=== PATIENT | female | born 1950 | race Caucasian/White ===

== ENCOUNTER 2017-07-06 07:05 | Emergency (ER) | payer MEDICARE ==
--- OUTSIDE RECORDS SUMMARY | 2017-07-06 07:14 | XMS REPORT ---
:1950 External Reference #:[id number] Author Organization [facility] Address [address] [place] [address] Phone [phone] Care Team Providers Name Role Phone Vicki Neff Care Team Information Hanger Unavailable Vicki Neff Primary Care Physician Unavailable Payers Type Date Identification Numbers Payment Provider Subscriber Commercial Effective: Policy Number: Medicare Blue Ppo Martha Fuentes 2015 [id number] Group Number: [id number] [address] [address] Group Name: [place] [address] PayID: [id number] Problems Date Description Provider Status Onset: 03/04/2011 Osteoporosis Wing Quijano M.D. Active Onset: 05/08/2016 Mixed hyperlipidemia Vicki Neff M.D. Active Onset: 01/12/2015 Hyperlipidemia Vicki Neff M.D. Active Onset: 01/12/2015 Vitamin D deficiency Vicki Neff M.D. Active Onset: 01/04/2014 Malignant lymphoma of extranodal Vicki Neff M.D. Active AND/OR solid organ site Onset: 07/07/2013 Impaired fasting glycaemia Wing Quijano M.D. Active Onset: 04/21/2012 Leukocytosis Wing Quijano M.D. Active Onset: 04/21/2012 Anxiety state Wing Quijano M.D. Active Onset: 04/21/2012 Chest pain Wing Quijano M.D. Active Onset: 03/12/2012 Acute upper respiratory infection Wing Quijano M.D. Active Onset: 05/20/2011 Acute pharyngitis Charanjit Denis M.D. Active Onset: 05/20/2011 Acute sinusitis Charanjit Denis M.D. Active Family History Date Family Member(s) Problem(s) Comments Father age 90 CHF. COPD. HTN. tool engineer. Mother 94. hip fracture. ARthritis, HTN. First Son suicided age 40. First Daughter pituitary tumor removed, diabetes insipidus mostly resolved. Nurse data architect manager in [facility] [facility] First Brother Hypertension First Sister healtlhy. 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 ETOH Use Social Alcohol 2-3 glasses wine a week. Smoking Patient is a former smoker Smoking 2008 Quit all together used to smoke 1 pack per week for 10 years, 1 ppweek 20 years before that. Exercise Type/Frequency Exercises regularly. Walks a Current couple of miles, a couple of times a week. Strength training and yoga. Allergies, Adverse Reactions, Alerts Date Description Reaction Status Severity Comments 03/13/2017 Ranitidine abdominal cramps, diarrhea active 12/12/2010 NKDA inactive Medications Medication Date Status Form Strength Qnty SIG Indications Ordering Provider Nebulizer 07/02 Active Misc 1unit w/ tubing Vicki L. s kits - dx: Aishwarya bronchitis/w M.D. heezing Xopenex 07/02 Active Nebulizer 0.63mg/3M 72ml 1 vial by Vicki LHollie /2017 L nebulizer Aishwarya, 1-6 times a M.D. day as needed, up to 6 times daily Albuterol 07/02 Active Nebulizer (2.5mg/3M 75ml use 1 vial Vicki LHollie Sulfate L) 0.083% via Aishwarya, nebulizer M.D. every 4-6 hours as needed for shortness of breath /wheezing Medrol 07/02 Active TBPK 4mg 1unit use as Vicki LHollie /2017 s directed Krysten Neff Azithromycin 06/28 Active Tablets 250mg 6tabs 2 by mouth J01.90 Vicki LHollie /2017 today. 1 by Aishwarya, mouth daily M.D. x 4 Ventolin HFA 06/28 Active Aerosol 108(90Bas 18uni 2 puffs J01.90 Vicki L. /2017 e) ts every 4 Aishwarya, mcg/Act hours as M.D. needed Cheratussin ac 06/28 Active Solution 100-10mg/ 100ml 5 -10 J01.90 Vicki L. /2017 5ML milliliters Aishwarya, by mouth at M.D. night for cough Ocuvite 01/04 Active Tablets 1 po qd /2013 [facility] Calcium 03/29 Active Tablets 1250mg 90tab one tab po M81.0 Dimas A. /2009 s daily Krysten Quijano Multi-Vitamin Active Tablets 1 PO qd Unknown /0000 Omeprazole Active Capsules 20mg 1 by mouth Unknown /0000 DR every day Ranitidine HCL 03/04 Hx Capsules 300mg 90cap 1 by mouth K21.9 Vicki L. /2016 s at night. Henry Neff M.D. 03/13 Ranitidine HCL 07/18 Hx Capsules 300mg 90cap 1 by mouth K21.9 Vicki LHollie /2016 s at night. Henry Neff M.D. 03/03 Doxycycline 01/29 Hx Tablets 100mg 2tabs 2 pills by [id number] Vicki Cunningham Hyclate mouth at the Aishwarya, - same time. M.D. 05/08 Physical 07/04 Hx evaluate and M25.562 Vicki Cunningham Therapy treat mike Neff, - knee pain. M.D. 11/26 Vitamin D 01/20 Hx Capsules [id number] 12cap take 1 Vicki LHollie (Ergocalcifero s capsule by ildefonso Neff) - mouth once M.D. 11/26 weekly 12 weeks. Meclizine HCL 11/10 Hx Tablets 25mg 30tab take 1 386.10 Maria Del Carmen s tablet three Brown, RADARMAN - times a day 11/26 if needed for dizziness Physical 11/10 Hx evaluate and 719.41 Maria Del Carmen Therapy treat right Jose, RADARMAN - shoulder 03/13 pain Guaiatussin ac 03/29 Hx Syrup 100-10mg/ 4oz 1 -2 tsp po 5ML q 4 hr prn Brie, - cough Afnp-C 04/08 Azithromycin 02/26 Hx Tablets 250mg 6tabs 2 tabs 465.8 Katalina today; then Lisy, - one tab qd x Afnp-C 03/03 4 more days Guaifenesin ac 02/26 Hx Syrup 100-10mg/ 4oz 1-2 tsp q 4 465.8 Katalina 5ML hrs prn for Lisy, - cough Afnp-C 03/04 Azithromycin 01/06 Hx Tablets 250mg 6tabs 2 po today 465.9 Dimas A. /2012 and 1 po x 4 Krysten Quijano - days 02/26 Codeine 01/06 Hx Liquid 300-10mg/ 40ml 5ml before 465.9 Dimas A. Phosphate/ai 5ML bed qhs Krysten Quijano fenesin - 02/26 Guaifenesin ac 01/06 Hx Syrup 100-10mg/ 40ml 5ml po qhs 465.9 Katalina 5ML as needed Lisy, - for cough Afnp-C 02/26 Robitussin A-C 03/12 Hx 100ml 1-2 tsp po 465.9 Dimas A. q4h prn Sinai Quijano. - cough 04/21 Azithromycin 03/12 Hx Tablets 250mg 6tabs 2 by mouth 465.9 today and 1 Brie, - by mouth x 4 Afnp-C Azithromycin 05/20 Hx Tablets 250mg 6tabs 2 po today 461.8 Charanjit T. /2011 and 1 po x 4 Midura, - days M.D. 12/25 Robitussin A-C 05/20 Hx 120ml 1-2 tsp po 461.8 Charanjit T. q4h prn Midura, - cough M.D. 12/25 Azithromycin 03/16 Hx Tablets 250mg 6tabs 2 tabs 466.0 today; then Lisy, - one tab qd x Afnp-C 03/21 4 more days Meclizine HCL 03/16 Hx Tablets 12.5mg 20tab take 1-2 bid 466.0 Katalina /2010 s prn for Lisy, - dizziness Afnp-C 05/20 Amoxicillin/Cl 02/14 Hx Tablets 875-125mg 20tab 1 po bid 466.0 Vicki RuggieroHollie avulanate /2010 s with AishwaryaKiara page - probiotics M.DHollie 03/16 and yogurt. /2010 Acetaminophen/ 02/14 Hx Tablets 300-30mg 20tab 1-2 po at 466.0 Vicki RuggieroHollie Codeine #3 /2010 s hs. Henry Neff.DHollie 03/16 Flexeril 12/12 Hx Tablets 10mg 30tab 1 po q hs 724.5 Emilie /2010 s prn muscle Billie, - spasm [employer] 02/14 Physical 12/12 Hx evaluate and 724.5 Emilie Therapy /2010 treat left Billie, - low back [employer] 02/14 pain strain Azithromycin 08/14 Hx Tablets 250mg 6tabs 2 po today 466.0 Dimas A. /2010 and 1 po x 4 Krysten Quijano - days 12/12 Robitussin A/C 08/14 Hx 120ml 1-2 tsp po 466.0 Dimas A. qhs prn Krysten Quijano - cough 12/12 Vitamin D 03/29 Hx Capsules 1000Unit 90cap 1 po qd M81.0 Dimas A. s Krysten Quijano - 03/13 Calcium 03/14 Hx Tablets [facility] 03/29 Of Amoxicillin/Cl 03/13 Hx Tablets 875-125mg 20tab 1 po bid for Mark F. avulanate /2009 s 10 days Shallish Potassium Henry Bashir 03/22 Metronidazole 11/08 Hx Tablets 500mg 21tab 1 po tid Charanjit T. s Henry Denis M.D. 09/28 Cipro 11/04 Hx Tablets 500mg 10tab 1 po bid for Vangie M. s 5 days Henry Quintero M.D. 11/08 Antivert 05/31 Hx Tablets 12.5mg 20tab 1-2 po tid Mark F. s Henry Mcelroy M.D. 09/28 Zocor 02/08 Hx Tablets 10mg 90tab 1 po q hs 272.2 s Henry Wasserman 10/31 Actonel 01/27 Hx Tablets 35mg 4tabs 1 PO qweek Dimas A. /2007 Krysten Quijano - 09/28 Actonel Hx Tablets 75mg 12tab 1 qweek Dimas A. /0000 s Krysten Quijano - 01/27 Ceftin Hx Tablets 250mg 20tab 1 PO bid X Unknown /0000 s 10 Days - 02/08 Fosamax Hx Tablets 70mg 4tabs 1 po q week Dimas A. /0000 for Krysten Quijano - osteoporosis 12/25 Ibuprofen PM Hx Tablets 200-38mg qhs Unknown /0000 - 11/26 Immune Booster Hx Liquid 90 gtts qd Unknown /0000 - 03/03 Immunizations CPT Code Status Date Vaccine Lot # [id number] Given 02/25/2017 High-Dose, Influenza Virus Vacccine-fluzone 65 [id number] and older 86742 Given 01/30/2016 Influenza Vac, Quadrivalent, Slit Virus, Im [id number] Given 01/12/2015 Pneumococcal Conjugate Vacc-13 [id number] 00638 Given 01/12/2015 High-Dose, Influenza Virus Vacccine-fluzone 65 [id number] and older 90135 Given 01/04/2014 High-Dose, Influenza Virus Vacccine-fluzone 65 [id number] and older 72291 Given 02/03/2013 Pneumococcal Immunization [id number] 84783 Given 02/03/2013 High-Dose, Influenza Virus Vacccine-fluzone 65 [id number] and older 98401 Given 12/26/2011 DO Not Use Split Influenza Virus Vaccine [id number] 69404 Given 10/24/2011 Zostivax [id number] 60752 Given 03/29/2010 Tdap Tetanus, W Pertussis [id number] 76001 Given 03/13/2010 DO Not Use Split Influenza Virus Vaccine [id number] 04814 Given 03/18/2009 DO Not Use Split Influenza Virus Vaccine [id number] 35635 Given 01/26/2008 DO Not Use Split Influenza Virus Vaccine [id number] Vital Signs Date Vital Result Comment 07/02/2017 BP Systolic 134 mmHg BP Diastolic 84 mmHg Heart Rate 68 /min Body Temperature 97.5 F Respiratory Rate 16 /min Height 64.5 inches 5'4.50" Weight 1614.00 lb BMI (Body Mass Index) 272.7 kg/m2 06/28/2017 BP Systolic 144 mmHg BP Diastolic 90 mmHg Heart Rate 92 /min Body Temperature 98.6 F Respiratory Rate 18 /min Height 64.5 inches 5'4.50" Weight 165.25 lb BMI (Body Mass Index) 27.9 kg/m2 05/09/2017 BP Systolic 142 mmHg BP Diastolic 80 mmHg Heart Rate 84 /min Body Temperature 96.8 F Respiratory Rate 16 /min Height 64.5 inches 5'4.50" Weight 164.50 lb BMI (Body Mass Index) 27.8 kg/m2 03/04/2017 BP Systolic 122 mmHg BP Diastolic 82 mmHg Heart Rate 90 /min Body Temperature 98.1 F Height 64.5 inches 5'4.50" Weight 162.38 lb BMI (Body Mass Index) 27.4 kg/m2 10/08/2016 BP Systolic 118 mmHg BP Diastolic 80 mmHg Heart Rate 60 /min Body Temperature 98.0 F Respiratory Rate 16 /min Weight 162.00 lb 07/18/2016 BP Systolic 120 mmHg BP Diastolic 80 mmHg Heart Rate 68 /min Body Temperature 98.0 F Respiratory Rate 18 /min Weight 165.00 lb 05/08/2016 BP Systolic 136 mmHg BP Diastolic 72 mmHg Heart Rate 68 /min Body Temperature 97.7 F Respiratory Rate 16 /min Height 64.5 inches 5'4.50" measured 01/12/15 Weight 161.00 lb BMI (Body Mass Index) 27.2 kg/m2 01/30/2016 BP Systolic 138 mmHg BP Diastolic 70 mmHg Heart Rate 84 /min Body Temperature 97.7 F Height 64.5 inches 5'4.50" measured 01/12/15 Weight 161.25 lb BMI (Body Mass Index) 27.2 kg/m2 11/27/2015 BP Systolic 110 mmHg BP Diastolic 70 mmHg Heart Rate 68 /min Body Temperature 98.0 F Respiratory Rate 18 /min Height 64.5 inches 5'4.50" measured 01/12/15 Weight 159.00 lb BMI (Body Mass Index) 26.9 kg/m2 07/05/2015 BP Systolic 110 mmHg BP Diastolic 80 mmHg Heart Rate 76 /min Body Temperature 98.0 F Respiratory Rate 18 /min Height 64.5 inches 5'4.50" measured 01/12/15 Weight 161.00 lb BMI (Body Mass Index) 27.2 kg/m2 03/13/2015 BP Systolic 126 mmHg BP Diastolic 76 mmHg Heart Rate 78 /min Body Temperature 97.5 F Respiratory Rate 16 /min Height 64.5 inches 5'4.50" measured 01/12/15 Weight 159.12 lb BMI (Body Mass Index) 26.9 kg/m2 01/12/2015 BP Systolic 138 mmHg BP Diastolic 74 mmHg Heart Rate 60 /min Body Temperature 97.5 F Respiratory Rate 16 /min Height 64.5 inches 5'4.50" measured 01/12/15 Weight 158.38 lb BMI (Body Mass Index) 26.8 kg/m2 11/10/2014 BP Systolic 150 mmHg BP Diastolic 100 mmHg Heart Rate 72 /min Body Temperature 96.0 F Respiratory Rate 16 /min Height 64 inches 5'4" Weight 161.00 lb BMI (Body Mass Index) 27.6 kg/m2 03/29/2014 BP Systolic 128 mmHg BP Diastolic 72 mmHg Heart Rate 80 /min Body Temperature 97.0 F Respiratory Rate 16 /min O2 % BldC Oximetry 98 % Height 64 inches 5'4" Weight 155.00 lb BMI (Body Mass Index) 26.6 kg/m2 01/04/2014 BP Systolic 120 mmHg BP Diastolic 72 mmHg Heart Rate 78 /min Body Temperature 97.0 F Height 64 inches 5'4" Weight 154.50 lb BMI (Body Mass Index) 26.5 kg/m2 07/07/2013 BP Systolic 132 mmHg BP Diastolic 86 mmHg Heart Rate 76 /min Body Temperature 96.1 F Respiratory Rate 16 /min Height 64 inches 5'4" Weight 151.00 lb BMI (Body Mass Index) 25.9 kg/m2 06/21/2013 BP Systolic 130 mmHg BP Diastolic 78 mmHg Heart Rate 82 /min Body Temperature 96.9 F Respiratory Rate 16 /min Height 65 inches 5'5" Weight 152.00 lb BMI (Body Mass Index) 25.3 kg/m2 05/12/2013 BP Systolic 132 mmHg BP Diastolic 76 mmHg Heart Rate 84 /min Body Temperature 96.3 F Height 65 inches 5'5" Weight 155.25 lb BMI (Body Mass Index) 25.8 kg/m2 02/26/2013 BP Systolic 124 mmHg BP Diastolic 78 mmHg Heart Rate 68 /min Body Temperature 96.9 F Respiratory Rate 16 /min Height 65 inches 5'5" Weight 151.00 lb BMI (Body Mass Index) 25.1 kg/m2 01/06/2013 BP Systolic 120 mmHg BP Diastolic 70 mmHg Heart Rate 64 /min Body Temperature 97.1 F Respiratory Rate 16 /min Height 65 inches 5'5" Weight 149.00 lb BMI (Body Mass Index) 24.8 kg/m2 07/17/2012 BP Systolic 130 mmHg BP Diastolic 82 mmHg Heart Rate 64 /min Body Temperature 97.1 F Height 65 inches 5'5" Weight 154.00 lb BMI (Body Mass Index) 25.6 kg/m2 04/21/2012 BP Systolic 128 mmHg BP Diastolic 84 mmHg Heart Rate 84 /min Body Temperature 97.0 F Height 65 inches 5'5" Weight 159.00 lb BMI (Body Mass Index) 26.5 kg/m2 03/12/2012 BP Systolic 142 mmHg BP Diastolic 92 mmHg Heart Rate 88 /min Body Temperature 97.6 F O2 % BldC Oximetry 98 % Height 65 inches 5'5" Weight 157.00 lb BMI (Body Mass Index) 26.1 kg/m2 12/26/2011 BP Systolic 132 mmHg BP Diastolic 80 mmHg Heart Rate 66 /min Body Temperature 97.1 F Height 65 inches 5'5" Weight 153.00 lb BMI (Body Mass Index) 25.5 kg/m2 05/20/2011 BP Systolic 118 mmHg BP Diastolic 70 mmHg Heart Rate 75 /min Body Temperature 97.1 F O2 % BldC Oximetry 99 % Height 65 inches 5'5" Weight 155.00 lb BMI (Body Mass Index) 25.8 kg/m2 03/16/2011 BP Systolic 122 mmHg BP Diastolic 76 mmHg Heart Rate 70 /min Body Temperature 97.2 F O2 % BldC Oximetry 97 % Height 65 inches 5'5" Weight 148.00 lb BMI (Body Mass Index) 24.6 kg/m2 02/14/2011 BP Systolic 120 mmHg BP Diastolic 80 mmHg Heart Rate 80 /min Body Temperature 98.2 F Respiratory Rate 16 /min Height 65 inches 5'5" Weight 150.00 lb BMI (Body Mass Index) 25.0 kg/m2 12/12/2010 BP Systolic 92 mmHg BP Diastolic 70 mmHg Heart Rate 84 /min Height 65 inches 5'5" Weight 149.00 lb BMI (Body Mass Index) 24.8 kg/m2 08/14/2010 BP Systolic 110 mmHg BP Diastolic 70 mmHg Heart Rate 84 /min Body Temperature 98.1 F Respiratory Rate 16 /min O2 % BldC Oximetry 96 % Height 65 inches 5'5" Weight 144.00 lb BMI (Body Mass Index) 24.0 kg/m2 08/11/2010 BP Systolic 110 mmHg BP Diastolic 70 mmHg Heart Rate 76 /min Body Temperature 97.4 F Respiratory Rate 16 /min Height 65 inches 5'5" Weight 144.00 lb BMI (Body Mass Index) 24.0 kg/m2 03/29/2010 BP Systolic 122 mmHg BP Diastolic 88 mmHg Heart Rate 102 /min Body Temperature 96.6 F Height 65 inches 5'5" Weight 144.00 lb BMI (Body Mass Index) 24.0 kg/m2 03/13/2010 BP Systolic 110 mmHg BP Diastolic 70 mmHg Heart Rate 72 /min Body Temperature 98.6 F Respiratory Rate 14 /min Height 65 inches 5'5" Weight 144.00 lb BMI (Body Mass Index) 24.0 kg/m2 11/08/2009 BP Systolic 130 mmHg BP Diastolic 84 mmHg Heart Rate 60 /min Body Temperature 97.3 F Height 65 inches 5'5" Weight 144.00 lb BMI (Body Mass Index) 24.0 kg/m2 09/28/2009 BP Systolic 138 mmHg BP Diastolic 80 mmHg Heart Rate 68 /min Body Temperature 97.0 F O2 % BldC Oximetry 98 % Height 65 inches 5'5" Weight 144.00 lb BMI (Body Mass Index) 24.0 kg/m2 11/08/2008 BP Systolic 110 mmHg BP Diastolic 68 mmHg Heart Rate 64 /min Body Temperature 97.8 F Height 65 inches 5'5" Weight 134.00 lb BMI (Body Mass Index) 22.3 kg/m2 10/31/2008 BP Systolic 142 mmHg BP Diastolic 82 mmHg Heart Rate 80 /min Body Temperature 97.9 F Weight 137.00 lb 05/31/2008 BP Systolic 142 mmHg BP Diastolic 90 mmHg Heart Rate 75 /min Respiratory Rate 20 /min 02/09/2008 BP Systolic 122 mmHg BP Diastolic 72 mmHg Heart Rate 68 /min Height 65 inches 5'5" Weight 148.00 lb BMI (Body Mass Index) 24.6 kg/m2 01/26/2008 BP Systolic 126 mmHg BP Diastolic 80 mmHg Heart Rate 72 /min Body Temperature 97.9 F Height 65 inches 5'5" Weight 146.00 lb BMI (Body Mass Index) 24.3 kg/m2 Results Test Date Test Result H/L Range Note Influenza A&B-fma 06/28/2017 Influenza A negative Influenza B negative Laboratory test 05/06/2017 Surgical Interface SEE RESULT BELOW 1, 2 finding Order Laboratory test 05/06/2017 Clotest SEE RESULT BELOW 3 finding CBC Auto Diff 09/03/2016 White Blood Count 11.8 10^3/uL High 3.5-10.8 Red Blood Count 4.92 10^6/uL 4.0-5.4 Hemoglobin 13.5 g/dL 12.0-16.0 Hematocrit 42 % 35-47 Mean Corpuscular Volume 85 fL 80-97 Mean Corpuscular Hemoglobin 27 pg 27-31 Mean Corpuscular HGB Conc 33 g/dL 31-36 Red Cell Distribution Width 15 % 10.5-15 Platelet Count 193 10^3/uL 150-450 Mean Platelet Volume 10 um3 7.4-10.4 Abs Neutrophils 4.7 10^3/uL 1.5-7.7 Abs Lymphocytes 6.0 10^3/uL High 1.0-4.8 Abs Monocytes 0.8 10^3/uL 0-0.8 Abs Eosinophils 0.2 10^3/uL 0-0.6 Abs Basophils 0.1 10^3/uL 0-0.2 Abs Nucleated RBC 0.01 10^3/uL Manual Differential 09/03/2016 Neutrophil % 37 % Low 38-83 Lymphocytes % 45 % 25-47 Monocytes % 8 % 0-13 Eosinophils % 2 % 0-6 Basophil % 1 % 0-2 Reactive Lymph % 7 % High 0-6 RBC Morphology Normal Normal Laboratory test finding 09/03/2016 Pathologist Review (SEE NOTE) 4 Lipid Profile 07/09/2016 Cholesterol 270 mg/dL High 120-200 Triglycerides 151 mg/dL 30-200 HDL Cholesterol 64 mg/dL 30-85 LDL (Calculated) 176 CALC High 0-129 VLDL Cholesterol 30 mg/dL 0-50 HDL Risk Factor 4.2 CALC 0.0-4.4 Lipid Profile 05/09/2016 Cholesterol 254 mg/dL High 120-200 Triglycerides 117 mg/dL 30-200 HDL Cholesterol 61 mg/dL 30-85 LDL (Calculated) 170 CALC High 0-129 VLDL Cholesterol 23 mg/dL 0-50 HDL Risk Factor 4.2 CALC 0.0-4.4 Laboratory test finding 05/09/2016 TSH 1.44 mIU/L 0.50-6.00 Vitamin D25 22 Low 30-100 Complete Blood Count 05/09/2016 WBC 9.0 x10^3/UL 3.6-9.6 RBC 4.72 x10^6/UL 3.90-5.70 HGB 13.6 g/dL 12.1-17.2 HCT 40 % 36-50 MCV 85.0 fL 82.2-97.4 MCH 28.8 pg 27.6-33.3 MCHC 34.1 g/dL 33.0-35.5 RDW 14.7 % High 11.6-13.7 PLT 204 x10^3/UL 150-400 MPV 8.3 fL 7.4-10.4 Gran # 4.3 x10^3/UL 1.5-7.2 Lymph# 4.4 x10^3/UL 0.7-4.9 Barron# 0.3 x10^3/UL 0.1-0.9 Gran % 47.0 % 42.2-75.2 Lymph % 49.1 % 20.5-51.1 Barron% 3.9 % 1.7-9.3 Comprehensive Metabolic Prof 05/09/2016 Sodium 142 mEq/L 134-149 Potassium 4.6 mEq/L 3.6-5.5 Chloride 106 mEq/L 94-112 Carbon Dioxide 25 mEq/L 21-32 Glucose 116 mg/dL High 70-105 5 BUN 15 mg/dL 6-26 Creatinine 0.6 mg/dL 0.6-1.4 BUN/Creat Ratio 25.0 CALC 8.0-36.0 Calcium 9.9 mg/dL 8.6-10.2 Total Protein 7.5 g/dL 6.4-8.3 Albumin 4.9 g/dL 3.8-5.5 Globulin 2.6 g/dL 2.0-4.8 A/G Ratio 1.9 CALC 0.6-2.3 Alk. Phosphatase 66 U/L 30-110 Alt (SGPT) 20 U/L 7-35 Ast (Sgot) 22 U/L 5-34 Total Bilirubin 0.3 mg/dL 0.2-1.3 GFR Non- >60 ml/min/1.73m^ >=60 GFR >60 ml/min/1.73m^ >=60 Complete Blood Count 02/27/2016 WBC 9.2 x10^3/UL 3.6-9.6 RBC 4.66 x10^6/UL 3.90-5.70 HGB 13.4 g/dL 12.1-17.2 HCT 40 % 36-50 MCV 85.0 fL 82.2-97.4 MCH 28.7 pg 27.6-33.3 MCHC 33.8 g/dL 33.0-35.5 RDW 15.2 % High 11.6-13.7 PLT 215 x10^3/UL 150-400 MPV 8.8 fL 7.4-10.4 Gran # 4.0 x10^3/UL 1.5-7.2 Lymph# 4.8 x10^3/UL 0.7-4.9 Barron# 0.4 x10^3/UL 0.1-0.9 Gran % 43.2 % 42.2-75.2 Lymph % 51.1 % 20.5-51.1 Barron% 4.7 % 1.7-9.3 Comprehensive Metabolic Prof 02/27/2016 Sodium 145 mEq/L 134-149 Potassium 3.9 mEq/L 3.6-5.5 Chloride 102 mEq/L 94-112 Carbon Dioxide 28 mEq/L 21-32 Glucose 112 mg/dL High 70-105 BUN 17 mg/dL 6-26 Creatinine 0.6 mg/dL 0.6-1.4 BUN/Creat Ratio 28.3 CALC 8.0-36.0 Calcium 9.0 mg/dL 8.6-10.2 Total Protein 6.8 g/dL 6.4-8.3 Albumin 4.5 g/dL 3.8-5.5 Globulin 2.3 g/dL 2.0-4.8 A/G Ratio 2.0 CALC 0.6-2.3 Alk. Phosphatase 54 U/L 30-110 Alt (SGPT) 20 U/L 7-35 Ast (Sgot) 20 U/L 5-34 Total Bilirubin 0.4 mg/dL 0.2-1.3 GFR Non- >60 ml/min/1.73m^ >=60 GFR >60 ml/min/1.73m^ >=60 Lyme, Western Blot, Serum 02/27/2016 IgG P93 Ab. Absent 6 IgG P66 Ab. Absent 6 IgG P58 Ab. Absent 6 IgG P45 Ab. Absent 6 IgG P41 Ab. Absent 6 IgG P39 Ab. Absent 6 IgG P30 Ab. Absent 6 IgG P28 Ab. Absent 6 IgG P23 Ab. Absent 6 IgG P18 Ab. Absent 6 Lyme IgG WB Interp. Negative 6, 7 IgM P41 Ab. Absent 6 IgM P39 Ab. Absent 6 IgM P23 Ab. Absent 6 Lyme IgM WB Interp. Negative 6, 8 Laboratory test finding 02/27/2016 Sedimentation Rate 12 mm CBC Auto Diff 10/09/2015 White Blood Count 9.5 10^3/uL 3.5-10.8 Red Blood Count 4.77 10^6/uL 4.0-5.4 Hemoglobin 13.1 g/dL 12.0-16.0 Hematocrit 40 % 35-47 Mean Corpuscular Volume 83 fL 80-97 Mean Corpuscular Hemoglobin 27 pg 27-31 Mean Corpuscular HGB Conc 33 g/dL 31-36 Red Cell Distribution Width 15 % 10.5-15 Platelet Count 189 10^3/uL 150-450 Mean Platelet Volume 10 um3 7.4-10.4 Abs Neutrophils 3.4 10^3/uL 1.5-7.7 Abs Lymphocytes 5.5 10^3/uL High 1.0-4.8 Abs Monocytes 0.4 10^3/uL 0-0.8 Abs Eosinophils 0.2 10^3/uL 0-0.6 Abs Basophils 0.1 10^3/uL 0-0.2 Abs Nucleated RBC 0.01 10^3/uL Granulocyte % 35.3 % Low 38-83 Lymphocyte % 58.0 % High 25-47 Monocyte % 4.4 % 1-9 Eosinophil % 1.6 % 0-6 Basophil % 0.7 % 0-2 Nucleated Red Blood Cells % 0.1 Manual Differential 10/09/2015 Neutrophil % 41 % 38-83 Lymphocytes % 33 % 25-47 Monocytes % 8 % 0-13 Eosinophils % 1 % 0-6 Reactive Lymph % 17 % High 0-6 9 RBC Morphology Normal Normal Laboratory test finding 10/09/2015 Pathologist Review (SEE NOTE) 10 CBC Auto Diff 04/17/2015 White Blood Count 11.9 10^3/uL High 3.5-10.8 Red Blood Count 4.77 10^6/uL 4.0-5.4 Hemoglobin 13.2 g/dL 12.0-16.0 Hematocrit 41 % 35-47 Mean Corpuscular Volume 86 fL 80-97 Mean Corpuscular Hemoglobin 28 pg 27-31 Mean Corpuscular HGB Conc 32 g/dL 31-36 Red Cell Distribution Width 15 % 10.5-15 Platelet Count 207 10^3/uL 150-450 Mean Platelet Volume 10 um3 7.4-10.4 Abs Neutrophils 4.7 10^3/uL 1.5-7.7 Abs Lymphocytes 6.1 10^3/uL High 1.0-4.8 Abs Monocytes 0.8 10^3/uL 0-0.8 Abs Eosinophils 0.2 10^3/uL 0-0.6 Abs Basophils 0.1 10^3/uL 0-0.2 Abs Nucleated RBC 0.01 10^3/uL Granulocyte % 39.4 % 38-83 Lymphocyte % 51.3 % High 25-47 Monocyte % 6.9 % 1-9 Eosinophil % 1.6 % 0-6 Basophil % 0.8 % 0-2 Nucleated Red Blood Cells % 0.1 Manual Differential 04/17/2015 Neutrophil % 39 % 38-83 Lymphocytes % 33 % 25-47 Monocytes % 5 % 0-13 Eosinophils % 1 % 0-6 Reactive Lymph % 22 % High 0-6 11 RBC Morphology Normal Normal Laboratory test finding 04/17/2015 Pathologist Review (SEE NOTE) 12 Leukemia/Lymphoma Phenot 04/17/2015 Path Interpretation 2-8 Marker TNP Path Interpret > 16 Marker TNP Path Interpret 9-15 Marker (SEE NOTE) 13 Laboratory test finding 01/16/2015 Vitamin D25 34 30-100 Lipid Profile 01/16/2015 Cholesterol 250 mg/dL High 120-200 Triglycerides 153 mg/dL 30-200 HDL Cholesterol 60 mg/dL 30-85 LDL (Calculated) 159 CALC High 0-129 VLDL Cholesterol 31 mg/dL 0-50 HDL Risk Factor 4.2 CALC 0.0-4.4 Laboratory test finding 01/16/2015 TSH 1.82 mIU/L 0.50-6.00 Free T4 1.16 ng/dL 0.75-1.54 Complete Blood Count 01/16/2015 WBC 9.6 x10^3/UL 3.6-9.6 RBC 4.43 x10^6/UL 3.90-5.70 HGB 12.8 g/dL 12.1-17.2 HCT 38 % 36-50 MCV 86.0 fL 82.2-97.4 MCH 28.8 pg 27.6-33.3 MCHC 33.6 g/dL 33.0-35.5 RDW 14.5 % High 11.6-13.7 PLT 200 x10^3/UL 150-400 MPV 8.7 fL 7.4-10.4 Gran # 3.6 x10^3/UL 1.5-7.2 Lymph# 5.5 x10^3/UL High 0.7-4.9 Barron# 0.5 x10^3/UL 0.1-0.9 Gran % 37.1 % Low 42.2-75.2 Lymph % 57.5 % High 20.5-51.1 Barron% 5.4 % 1.7-9.3 Comprehensive Metabolic Prof 01/16/2015 Sodium 140 mEq/L 134-149 Potassium 4.1 mEq/L 3.6-5.5 Chloride 103 mEq/L 94-112 Carbon Dioxide 25 mEq/L 21-32 Glucose 123 mg/dL High 70-105 14 BUN 15 mg/dL 6-26 Creatinine 0.6 mg/dL 0.6-1.4 BUN/Creat Ratio 25.0 CALC 8.0-36.0 Calcium 9.6 mg/dL 8.6-10.2 Total Protein 7.3 g/dL 6.4-8.3 Albumin 4.7 g/dL 3.8-5.5 Globulin 2.6 g/dL 2.0-4.8 A/G Ratio 1.8 CALC 0.6-2.3 Alk. Phosphatase 55 U/L 30-110 Alt (SGPT) 23 U/L 7-35 Ast (Sgot) 21 U/L 5-34 Total Bilirubin 0.4 mg/dL 0.2-1.3 GFR Non- >60 ml/min/1.73m^ >=60 GFR >60 ml/min/1.73m^ >=60 Laboratory test 01/16/2015 Hemoglobin A1c 5.9 % % High 4.1-5.7 finding (Fma/CMC,CX) CBC Auto Diff 10/24/2014 White Blood Count 12.3 10^3/uL High 4.8-10.8 Red Blood Count 4.82 10^6/uL 4.0-5.4 Hemoglobin 13.6 g/dL 12.0-16.0 Hematocrit 41 % 35-47 Mean Corpuscular Volume 85 fL 80-97 Mean Corpuscular Hemoglobin 28 pg 27-31 Mean Corpuscular HGB Conc 33 g/dL 31-36 Red Cell Distribution Width 14 % 10.5-15 Platelet Count 223 10^3/uL 150-450 Mean Platelet Volume 9 um3 7.4-10.4 Abs Neutrophils 4.2 10^3/uL 1.5-7.7 Abs Lymphocytes 6.9 10^3/uL High 1.0-4.8 Abs Monocytes 0.8 10^3/uL 0-0.8 Abs Eosinophils 0.2 10^3/uL 0-0.6 Abs Basophils 0.1 10^3/uL 0-0.2 Abs Nucleated RBC 0 10^3/uL Granulocyte % 34.4 % Low 38-83 Lymphocyte % 56.3 % High 25-47 Monocyte % 6.6 % 1-9 Eosinophil % 1.8 % 0-6 Basophil % 0.9 % 0-2 Nucleated Red Blood Cells % 0 Rapid Strep A 08/02/2014 Rapid Strep A (SEE NOTE) 15 Laboratory test finding 08/02/2014 Throat Beta Strep (SEE NOTE) 16 Culture CBC Auto Diff 04/19/2014 White Blood Count 12.9 10^3/uL High 4.8-10.8 Red Blood Count 4.73 10^6/uL 4.0-5.4 Hemoglobin 13.2 g/dL 12.0-16.0 Hematocrit 40 % 35-47 Mean Corpuscular Volume 85 fL 80-97 Mean Corpuscular Hemoglobin 28 pg 27-31 Mean Corpuscular HGB Conc 33 g/dL 31-36 Red Cell Distribution Width 15 % 10.5-15 Platelet Count 230 10^3/uL 150-450 Mean Platelet Volume 10 um3 7.4-10.4 Abs Neutrophils 3.9 10^3/uL 1.5-7.7 Abs Lymphocytes 7.7 10^3/uL High 1.0-4.8 Abs Monocytes 1.0 10^3/uL High 0-0.8 Abs Eosinophils 0.3 10^3/uL 0-0.6 Abs Basophils 0.1 10^3/uL 0-0.2 Abs Nucleated RBC 0 10^3/uL Granulocyte % 30.0 % Low 38-83 Lymphocyte % 59.6 % High 25-47 Monocyte % 7.4 % 1-9 Eosinophil % 2.0 % 0-6 Basophil % 1.0 % 0-2 Nucleated Red Blood Cells % 0 Laboratory test finding 01/04/2014 Vitamin D25 35 30-100 Complete Blood Count 01/04/2014 WBC 11.4 x10^3/UL High 3.6-9.6 17 RBC 4.89 x10^6/UL 3.90-5.70 HGB 13.9 g/dL 12.1-17.2 HCT 43 % 36-50 MCV 88.0 fL 82.2-97.4 MCH 28.5 pg 27.6-33.3 MCHC 32.5 g/dL Low 33.0-35.5 RDW 12.9 % 11.6-13.7 PLT 217 x10^3/UL 150-400 MPV 8.8 fL 7.4-10.4 Gran # 4.9 x10^3/UL 1.5-7.2 Lymph# 5.7 x10^3/UL High 0.7-4.9 Barron# 0.8 x10^3/UL 0.1-0.9 Gran % 42.6 % 42.2-75.2 Lymph % 50.2 % 20.5-51.1 Barron% 7.2 % 1.7-9.3 CBC Auto Diff 09/30/2013 White Blood Count 11.6 10^3/uL High 4.8-10.8 Red Blood Count 4.25 10^6/uL 4.0-5.4 Hemoglobin 12.2 g/dL 12.0-16.0 Hematocrit 37 % 35-47 Mean Corpuscular Volume 86 fL 80-97 Mean Corpuscular Hemoglobin 29 pg 27-31 Mean Corpuscular HGB Conc 34 g/dL 31-36 Red Cell Distribution Width 14 % 10.5-15 Platelet Count 197 10^3/uL 150-450 Mean Platelet Volume 10 um3 7.4-10.4 Abs Neutrophils 3.7 10^3/uL 1.5-7.7 Abs Lymphocytes 7.0 10^3/uL High 1.0-4.8 Abs Monocytes 0.7 10^3/uL 0-0.8 Abs Eosinophils 0.2 10^3/uL 0-0.6 Abs Basophils 0.1 10^3/uL 0-0.2 Abs Nucleated RBC 0.01 10^3/uL Manual Differential 09/30/2013 Neutrophil % 33 % Low 38-83 Lymphocytes % 40 % 25-47 Monocytes % 8 % 0-13 Eosinophils % 1 % 0-6 Reactive Lymph % 18 % High 0-6 18 RBC Morphology Normal Normal Laboratory test finding 09/30/2013 Monospot Negative Negative 19 Ua - Non Micro (Fma) 06/30/2013 Appearance CLEAR Color YELLOW Glucose NEGATIVE Bilirubin NEGATIVE Ketones NEGATIVE SP Grav 1.015 Blood NEGATIVE PH 6.5 Protein NEGATIVE Urobil 0.2 Nitrite NEGATIVE Leukocytes (Fma/CMC/Centrex) NEGATIVE Comprehensive Metabolic Prof 06/30/2013 Sodium 140 mEq/L 134-149 Potassium 4.9 mEq/L 3.6-5.5 Chloride 100 mEq/L 94-112 Carbon Dioxide 24 mEq/L 21-32 Glucose 108 mg/dL High 70-105 20 BUN 20 mg/dL 6-26 Creatinine 0.8 mg/dL 0.6-1.4 BUN/Creat Ratio 25.0 CALC 8.0-36.0 Calcium 9.5 mg/dL 8.6-10.2 Total Protein 7.3 g/dL 6.3-8.1 Albumin 5.0 g/dL 3.8-5.5 Globulin 2.3 g/dL 2.0-4.8 A/G Ratio 2.2 CALC 0.6-2.3 Alk. Phosphatase 62 U/L 30-110 Alt (SGPT) 17 U/L 7-35 Ast (Sgot) 20 U/L 5-34 Total Bilirubin 0.4 mg/dL 0.2-1.3 Lipid Profile 06/30/2013 Cholesterol 250 mg/dL High 120-200 Triglycerides 121 mg/dL 30-200 HDL Cholesterol 55 mg/dL 30-85 LDL (Calculated) 171 CALC High 0-129 VLDL Cholesterol 24 mg/dL 0-50 HDL Risk Factor 4.5 CALC High 0.0-4.4 Complete Blood Count 06/30/2013 WBC 10.6 x10^3/UL High 3.6-9.6 RBC 4.45 x10^6/UL 3.90-5.70 HGB 12.8 g/dL 12.1-17.2 HCT 38 % 36-50 MCV 86.0 fL 82.2-97.4 MCH 28.7 pg 27.6-33.3 MCHC 33.4 g/dL 33.0-35.5 RDW 12.3 % 11.6-13.7 PLT 227 x10^3/UL 150-400 MPV 8.8 fL 7.4-10.4 Gran # 3.8 x10^3/UL 1.5-7.2 Lymph# 6.3 x10^3/UL High 0.7-4.9 Barron# 0.5 x10^3/UL 0.1-0.9 Gran % 34.6 % Low 42.2-75.2 Lymph % 59.9 % High 20.5-51.1 Barron% 5.5 % 1.7-9.3 Oncology CBC Auto Diff 03/23/2013 White Blood Count 11.4 10^3/uL High 4.8- 10.8 Red Blood Count 4.64 10^6/uL 4.0-5.4 Hemoglobin 12.8 g/dL 12.0-16.0 Hematocrit 40 % 35-47 Mean Corpuscular Volume 86 fL 80-97 Mean Corpuscular Hemoglobin 28 pg 27-31 Mean Corpuscular HGB Conc 32 g/dL 31-36 Red Cell Distribution Width 13 % 10.5-15 Platelet Count 218 10^3/uL 150-450 Mean Platelet Volume 9 um3 7.4-10.4 Abs Neutrophils 3.7 10^3/uL 1.5-7.7 Abs Lymphocytes 6.6 10^3/uL High 1.0-4.8 Abs Monocytes 0.8 10^3/uL 0-0.8 Abs Eosinophils 0.2 10^3/uL 0-0.6 Abs Basophils 0.1 10^3/uL 0-0.2 Granulocyte % 32.1 % Low 38-83 Lymphocyte % 58.9 % High 25-47 Monocyte % 6.6 % 1-9 Eosinophil % 1.9 % 0-6 Basophil % 0.5 % 0-2 Manual Differential 03/23/2013 Neutrophil % 33 % Low 38-83 Lymphocytes % 47 % 25-47 Monocytes % 5 % 0-13 Eosinophils % 1 % 0-6 Reactive Lymph % 14 % High 0-6 RBC Morphology Normal Normal Oncology CBC Auto Diff 12/31/2012 White Blood Count 10.9 10^3/uL High 4.8- 10.8 Red Blood Count 4.72 10^6/uL 4.0-5.4 Hemoglobin 13.0 g/dL 12.0-16.0 Hematocrit 40 % 35-47 Mean Corpuscular Volume 85 fL 80-97 Mean Corpuscular Hemoglobin 28 pg 27-31 Mean Corpuscular HGB Conc 32 g/dL 31-36 Red Cell Distribution Width 14 % 10.5-15 Platelet Count 190 10^3/uL 150-450 Mean Platelet Volume 10 um3 7.4-10.4 Abs Neutrophils 3.5 10^3/uL 1.5-7.7 Abs Lymphocytes 6.5 10^3/uL High 1.0-4.8 Abs Monocytes 0.7 10^3/uL 0-0.8 Abs Eosinophils 0.2 10^3/uL 0-0.6 Abs Basophils 0 10^3/uL 0-0.2 Manual Differential 12/31/2012 Neutrophil % 41 % 38-83 Lymphocytes % 57 % High 25-47 Monocytes % 1 % 0-13 Eosinophils % 1 % 0-6 RBC Morphology Normal Normal Oncology CBC Auto Diff 09/29/2012 White Blood Count 13.3 10^3/uL High 4.8- 10.8 Red Blood Count 4.67 10^6/uL 4.0-5.4 Hemoglobin 13.3 g/dL 12.0-16.0 Hematocrit 40 % 35-47 Mean Corpuscular Volume 85 fL 80-97 Mean Corpuscular Hemoglobin 28 pg 27-31 Mean Corpuscular HGB Conc 34 g/dL 31-36 Red Cell Distribution Width 13 % 10.5-15 Platelet Count 223 10^3/uL 150-450 Mean Platelet Volume 9 um3 7.4-10.4 Abs Neutrophils 4.4 10^3/uL 1.5-7.7 Abs Lymphocytes 7.5 10^3/uL High 1.0-4.8 Abs Monocytes 1.1 10^3/uL High 0-0.8 Abs Eosinophils 0.2 10^3/uL 0-0.6 Abs Basophils 0.1 10^3/uL 0-0.2 Manual Differential 09/29/2012 Neutrophil % 34 % Low 38-83 Lymphocytes % 47 % 25-47 Monocytes % 5 % 0-13 Eosinophils % 3 % 0-6 Reactive Lymph % 11 % High 0-6 RBC Morphology Normal Normal Bone Marrow Chromosomes 08/03/2012 BM Chromosome Specimen Bone Marrow BM Chromosome Specimen Id [id number] BM Chromosome Order Date 04 Aug 2012 14:1 <SEE NOTE> 21 BM Referral Reason lymphoma BM Chromosome Method See Comment 22 BM Chromo Banding Method See Comment 23 BM Cromosome Results 46,XX[20] BM Chromosome Interpretation See Comment 24 BM Chromosome Second Officer See Comment 25 BM Chromosome Report Date 10 Aug 2012 15:4 <SEE NOTE> 26 Leukemia/Lymphoma Flow 08/03/2012 LCMS Microscopic Description See Comment 27 LCMS Special Studies See Comment 28 LCMS Final Diagnosis See Comment 29 Manual Differential 08/03/2012 Neutrophil % 36 % Low 38-83 Band % 1 % 0-8 Lymphocytes % 54 % High 25-47 Monocytes % 4 % 0-13 Eosinophils % 1 % 0-6 Basophil % 1 % 0-2 Reactive Lymph % 3 % 0-6 RBC Morphology Normal Normal Bone Marrow Chromosomes 08/03/2012 BM Chromosome Specimen Bone Marrow BM Chromosome Specimen Id [id number] BM Chromosome Order Date 04 Aug 2012 14:1 <SEE NOTE> 30 BM Referral Reason lymphoma BM Chromosome Method See Comment 31 BM Chromo Banding Method See Comment 32 BM Cromosome Results 46,XX[20] BM Chromosome Interpretation See Comment 33 BM Chromosome Second Officer See Comment 34 BM Chromosome Report Date 10 Aug 2012 15:4 <SEE NOTE> 35 Leukemia/Lymphoma Flow 08/03/2012 LCMS Microscopic Description See Comment 36 LCMS Special Studies See Comment 37 LCMS Final Diagnosis See Comment 38 Chronic Lymphocytic Leukemia 08/03/2012 FCLL Specimen Bone Marrow FCLL Specimen Id [id number] FCLL Order Date 04 Aug 2012 13:2 <SEE NOTE> 39 FCLL Reason for Referral See Comment 40 FCLL Method See Comment 41 FCLL Result See Comment 42 FCLL Interpretation See Comment 43 FCLL Second Officer See Comment 44 FCLL Release Date 07 Aug 2012 10:1 <SEE NOTE> 45 B-Cell Lymphoma, Fish 08/03/2012 FBLP Specimen Bone Marrow FBLP Specimen Id [id number] FBLP Order Date 10 Aug 2012 14:2 <SEE NOTE> 46 FBLP Reason for Referral lymphoma FBLP Method See Comment 47 FBLP Result See Comment 48 FBLP Interpretation See Comment 49 FBLP Second Officer See Comment 50 FBLP Release Date 24 Aug 2012 10:0 <SEE NOTE> 51 Oncology CBC Auto Diff 08/03/2012 White Blood Count 11.7 10^3/uL High 4.8- 10.8 Red Blood Count 4.72 10^6/uL 4.0-5.4 Hemoglobin 13.5 g/dL 12.0-16.0 Hematocrit 40 % 35-47 Mean Corpuscular Volume 84 fL 80-97 Mean Corpuscular Hemoglobin 29 pg 27-31 Mean Corpuscular HGB Conc 34 g/dL 31-36 Red Cell Distribution Width 14 % 10.5-15 Platelet Count 197 10^3/uL 150-450 Mean Platelet Volume 10 um3 7.4-10.4 Abs Neutrophils 4.1 10^3/uL 1.5-7.7 Abs Lymphocytes 6.5 10^3/uL High 1.0-4.8 Abs Monocytes 0.8 10^3/uL 0-0.8 Abs Eosinophils 0.2 10^3/uL 0-0.6 Abs Basophils 0.1 10^3/uL 0-0.2 BCR/Abl Trans 9:22 Fish 07/27/2012 BCR/abl (Fish) Specimen Blood BCR/abl (Fish) Specimen Id [id number] BCR/abl (Fish) Order Date 28 Jul 2012 13:0 <SEE NOTE> 52 BCR/abl (Fish) Referral Reason leukocytosis BCR/abl (Fish) Method See Comment 53 BCR/abl Results See Comment 54 BCR/abl (Fish) Interpretation See Comment 55 BCR/abl (Fish) Second Officer See Comment 56 BCR/abl (Fish) Report Date 31 Jul 2012 09:2 <SEE NOTE> 57 Manual Differential 07/27/2012 Neutrophil % 26 % Low 38-83 Lymphocytes % 71 % High 25-47 Monocytes % 2 % 0-13 Reactive Lymph % 1 % 0-6 RBC Morphology Normal Normal Comp Metabolic Panel 07/27/2012 Sodium 140 mmol/L 133-145 Potassium 4.2 mmol/L 3.5-5.0 Chloride 105 mmol/L 101-111 Co2 Carbon Dioxide 29.0 mmol/L 22-32 Anion Gap 6.0 mmol/L 2-11 Glucose 105 mg/dL High 70-100 Blood Urea Nitrogen 15 mg/dL 6-24 Creatinine 0.70 mg/dL 0.50-1.40 BUN/Creatinine Ratio 21.4 High 8-20 Calcium 9.7 mg/dL 8.1-9.9 Total Protein 6.6 g/dL 6.2-8.1 Albumin 4.3 g/dL 3.2-5.2 Globulin 2.3 g/dL 2-4 Albumin/Globulin Ratio 1.9 1-3 Total Bilirubin 0.6 mg/dL 0.4-1.5 Alkaline Phosphatase 53 U/L 30-110 Alt 22 U/L 14-54 Ast 24 U/L 12-42 Egfr Non- 84.2 >60 Egfr 108.3 >60 58 Leukemia/Lymphoma Flow 07/27/2012 LCMS Microscopic Description See Comment 59 LCMS Special Studies See Comment 60 LCMS Final Diagnosis See Comment 61 Oncology CBC Auto Diff 07/27/2012 White Blood Count 12.1 10^3/uL High 4.8- 10.8 Red Blood Count 4.66 10^6/uL 4.0-5.4 Hemoglobin 13.2 g/dL 12.0-16.0 Hematocrit 40 % 35-47 Mean Corpuscular Volume 85 fL 80-97 Mean Corpuscular Hemoglobin 28 pg 27-31 Mean Corpuscular HGB Conc 34 g/dL 31-36 Red Cell Distribution Width 14 % 10.5-15 Platelet Count 178 10^3/uL 150-450 Mean Platelet Volume 10 um3 7.4-10.4 Abs Neutrophils 3.3 10^3/uL 1.5-7.7 Abs Lymphocytes 7.9 10^3/uL High 1.0-4.8 Abs Monocytes 0.6 10^3/uL 0-0.8 Abs Eosinophils 0.2 10^3/uL 0-0.6 Abs Basophils 0.1 10^3/uL 0-0.2 Granulocyte % (SEE NOTE) % 38-83 62 Lymphocyte % (SEE NOTE) % 25-47 63 Monocyte % (SEE NOTE) % 1-9 64 Eosinophil % (SEE NOTE) % 0-6 65 Basophil % (SEE NOTE) % 0-2 66 Laboratory test finding 07/27/2012 Pathologist Review (SEE NOTE) 67 Erythrocyte Sed Rate 22 mm/Hr 0-30 68 CBC Electronic (Fma) 07/10/2012 WBC 13.0 High 3.6-9.6 RBC 4.67 3.90-5.70 Hemoglobin (Fma/CMC/CTX) 13.0 g/dL 12.1 - 17.2 Hematocrit (Fma/CMC/CTX) 39.6 % 36.1 - 50.3 Platelets 212 10^3/ul 150-400 Lymph% 63.9 High 20.5-51.1 Mixed% 4.7 Neutrophils % 31.4 Mean Corpuscular Vol 85 82.2-97.4 Mean Corpuscular Hemoglobin 27.8 27.6-33.3 Mean Corpuscular Hemo Concen 32.8 32.0-36.0 RDW 12.7 11.6-13.7 Mean Platelet Volume 9.1 6.5-11.0 CBC With Manual Diff 07/06/2012 White Blood Count 13.8 10^3/uL High 4.8- 10.8 Red Blood Count 4.67 10^6/uL 4.0-5.4 Hemoglobin 13.0 g/dL 12.0-16.0 Hematocrit 40 % 35-47 Mean Corpuscular Volume 85 fL 80-97 Mean Corpuscular Hemoglobin 28 pg 27-31 Mean Corpuscular HGB Conc 33 g/dL 31-36 Red Cell Distribution Width 15 % 10.5-15 Platelet Count 197 10^3/uL 150-450 Mean Platelet Volume 11 um3 High 7.4-10.4 Abs Neutrophils 4.5 10^3/uL 1.5-7.7 Abs Lymphocytes 8.3 10^3/uL High 1.0-4.8 Abs Monocytes 0.6 10^3/uL 0-0.8 Abs Eosinophils 0.2 10^3/uL 0-0.6 Abs Basophils 0.1 10^3/uL 0-0.2 Abs Nucleated RBC 0.01 10^3/uL Neutrophil % 43 % 38-83 Lymphocytes % 46 % 25-47 Monocytes % 2 % 0-13 Eosinophils % 1 % 0-6 Reactive Lymph % 8 % High 0-6 RBC Morphology Normal Normal Laboratory test finding 04/20/2012 Troponin I 0 ng/mL 0-0.06 69 CBC Auto Diff 04/20/2012 White Blood Count 13.6 10^3/uL High 4.8-10.8 Red Blood Count 4.71 10^6/uL 4.0-5.4 Hemoglobin 13.4 g/dL 12.0-16.0 Hematocrit 40 % 35-47 Mean Corpuscular Volume 85 fL 80-97 Mean Corpuscular Hemoglobin 29 pg 27-31 Mean Corpuscular HGB Conc 33 g/dL 31-36 Red Cell Distribution Width 14 % 10.5-15 Platelet Count 215 10^3/uL 150-450 Mean Platelet Volume 9 um3 7.4-10.4 Abs Neutrophils 4.2 10^3/uL 1.5-7.7 Abs Lymphocytes 8.3 10^3/uL High 1.0-4.8 Abs Monocytes 0.7 10^3/uL 0-0.8 Abs Eosinophils 0.2 10^3/uL 0-0.6 Abs Basophils 0.1 10^3/uL 0-0.2 Abs Nucleated RBC 0.01 10^3/uL Manual Differential 04/20/2012 Neutrophil % 35.0 % Low 38-83 Band % 0 % 0-8 Lymphocytes % 17.0 % Low 25-47 Monocytes % 3.0 % 0-13 Eosinophils % 3.0 % 0-6 Basophil % 0 % 0-2 Reactive Lymph % 42.0 % High 0-6 70 Metamyelocytes % 0 % 0-2 Myelocytes % 0 % 0-1 Promyelocytes % 0 % Blast % 0 % RBC Morphology Normal Normal Laboratory test finding 04/20/2012 Pathologist Review (SEE NOTE) 71 Monospot Negative Negative 72 Laboratory test finding 04/20/2012 Troponin I 0 ng/mL 0-0.06 73 Comp Metabolic Panel 04/20/2012 Sodium 136 mmol/L 133-145 Potassium 3.7 mmol/L 3.5-5.0 Chloride 103 mmol/L 101-111 Co2 Carbon Dioxide 28.0 mmol/L 22-32 Anion Gap 5.0 mmol/L 2-11 Glucose 119 mg/dL High 70-100 Blood Urea Nitrogen 14 mg/dL 6-24 Creatinine 0.70 mg/dL 0.50-1.40 BUN/Creatinine Ratio 20.0 8-20 Calcium 9.1 mg/dL 8.1-9.9 Total Protein 7.4 g/dL 6.2-8.1 Albumin 4.5 g/dL 3.2-5.2 Globulin 2.9 g/dL 2-4 Albumin/Globulin Ratio 1.6 1-3 Total Bilirubin 0.6 mg/dL 0.4-1.5 Alkaline Phosphatase 55 U/L 30-110 Alt 26 U/L 14-54 Ast 24 U/L 12-42 Egfr Non- 84.2 >60 Egfr 108.3 >60 74 Calcium 24HR Urine 06/13/2010 Calcium Random Urine 17.3 mg/dL 75 Urine Calcium/24HR 233.5 MG/24HR 50-400 75 Hours Of Collection 24 HR 24- 75 Urine Volume Measurement 1350 ML 75 Laboratory test 03/30/2010 N-Telopeptide Serum 11.7 nmolBCE/L 6.2-19.0 finding Laboratory test 03/29/2010 Vitamin D, 25 Oh 20.9 ng/mL Low 32.0-100.0 76 finding C Telopeptide, Serum 438 pg/mL 77 N-Telopeptide Urine Cancelled Test SEE COMMENT 78 CBCM-a 09/28/2009 WBC 13.7 High 3.6-9.6 RBC 4.31 3.90-5.70 Hemoglobin (Fma/CMC/CTX) 12.7 g/dL 12.1 - 17.2 Hematocrit (Fma/CMC/CTX) 37.1 % 36.1 - 50.3 Mean Corpuscular Vol 86.1 82.2-97.4 Mean Corpuscular Hemaglobin 29.5 27.6-33.3 Mean Corpuscular Hemo Concen 34.2 33.0-36.0 Platelets 194 10^3/ul 150-400 RDW 14.2 High 11.6-13.7 Mean Platelet Volume 11.4 High 7.4-10.4 Neutrophil 31 Band 5 Lymphocytes 62 Monocyte 1 Eosinophils 1 Comment SEE COMMENT 79 Laboratory test 09/28/2009 Monospot (Fma/Centrex) NEGATIVE finding Surgical Pathology 12/26/2008 Surgical Pathology 80 <SEE NOTE> Hepatic 11/04/2008 Albumin 4.4 g/dL 3.8-5.5 81 Alk. Phos. 57 U/L 30-110 81 Alt (SGPT) 15 U/L 7-35 81 Ast (Sgot) 20 U/L 5-34 81 Total Bilirubin 0.3 mg/dL 0.2-1.3 81 Total Protein 6.6 g/dL 6.3-8.1 81 Direct Bilirubin 0.1 mg/dL 0.0-0.6 81 Globulin 2.2 g/dL 2.0-4.8 81 A/G Ratio 2.0 Calc 0.6-2.2 81 Indirect Bilirubin 0.18 0.10-1.00 81 Lipid Profile 11/04/2008 Cholesterol 196 mg/dL 120-200 81 HDL 48 mg/dL 30-85 81 Triglycerides 85 mg/dL 30-200 81 HDL Risk Factor 4.1 CALC Low 4.2-7.0 81 LDL (Calculated) 131 CALC High 0-129 81 VLDL (Calculated) 17 mg/dL 0-50 81 Stool Specimen 11/01/2008 Stool Specimen S^SOFT^STCON 82 Description Description Stool For Blood 11/01/2008 Stool For Blood NEGATIVE Negative Stool Color BROWN Stool Form NONFORMED Stool Consistency SOFT Stool For Polys 11/01/2008 Stool For WBCS NONE DETECTED Negative (Polys) Laboratory test 11/01/2008 O P: Giardia/Crypto Giardia and cryp 83 finding Screen <SEE NOTE> Campylobacter Culture NF 84 Stool Cult Sensitivity NF 85 Shiga Toxin 1 And 2 (Ehec) N^NEGATIVE BY IM <SEE NOTE> 86 Ua - Micro (Fma) 02/09/2008 Appearance CLEAR Color YELLOW Glucose NEG Bilirubin NEG Ketones NEG SP Grav 1.020 Blood TRACE PH 6.5 Protein NEG Urobil 0.2 Nitrite NEG Leukocytes (Fma/CMC/Centrex) NEG Hyaline - /Lpf Granular - /Lpf WBC (Fma,Centrex) 0-1 RBC 0-1 Mucus - /Lpf Epith RARE /Lpf Bacteria RARE /Hpf Amorphous - /Lpf Crystals, Fluid (Fma/CMC/CTX) - Z#Comments - Ua - Non Micro (a) 01/26/2008 Appearance CLEAR Color YELLOW Glucose NEG Bilirubin NEG Ketones NEG SP Grav 1.010 Blood NEG PH 5.5 Protein NEG Urobil 0.2 Nitrite NEG Leukocytes (a/[facility]/Centrex) NEG Comprehensive Metabolic Prof 01/26/2008 Albumin 4.3 g/dL 3.8-5.5 81 Alk. Phos. 50 U/L 30-110 81 Alt (SGPT) 16 U/L 7-35 81 Ast (Sgot) 17 U/L 5-34 81 BUN 15 mg/dL 6-26 81 Calcium 9.4 mg/dL 8.6-10.2 81 Chloride 97 mEq/L 94-112 81 Creatinine 0.9 mg/dL 0.6-1.4 81 Carbon Dioxide 27 mEq/L 21-32 81 Glucose 90 mg/dL 70-105 81 Sodium 138 mEq/L 134-149 81 Total Bilirubin 0.3 mg/dL 0.2-1.3 81 Total Protein 7.1 g/dL 6.3-8.1 81 Potassium 3.9 mEq/L 3.6-5.5 81 Globulin 2.9 g/dL 2.0-4.8 81 A/G Ratio 1.5 Calc 0.6-2.2 81 BUN/Creat Ratio 16.9 Calc 8.0-36.0 81 Lipid Profile 01/26/2008 Cholesterol 257 mg/dL High 120-200 81 HDL 41 mg/dL 30-85 81 Triglycerides 215 mg/dL High 30-200 81 HDL Risk Factor 6.2 CALC 4.2-7.0 81 LDL (Calculated) 172 CALC High 0-129 81 VLDL (Calculated) 43 mg/dL 0-50 81 Complete Blood Count 01/26/2008 WBC 12.9 x10^3/u High 3.6-9.6 81 Gran# 5.1 x10^3/u 1.5-7.2 81 Gran% 39.6 % Low 42.2-75.2 81 HCT 37 % 36-50 81 HGB 12.5 g/dL 12.1-17.2 81 Lymph# 7.3 x10^3/u High 0.7-4.9 81 Lymph% 56.7 % High 20.5-51.1 81 MCH 28.3 pg 27.6-33.3 81 MCV 83.0 fL 82.2-97.4 81 MCHC 34.1 g/dL 33.0-35.5 81 Mo# 0.5 x10^3/u 0.1-0.9 81 Mo% 3.7 % 1.7-9.3 81 MPV 9.9 fL 7.4-10.4 81 PLT 234 x10^3/u 150-400 81 RBC 4.41 x10^6/u 3.90-5.70 81 RDW 13.2 % 11.6-13.7 81 1 [id number] 2 SEE RESULT BELOW Name: MARTHA FUENTES : [address]: Kelin Waters DO Acct: [id number] Unit: [id number] AGE: 67 Location: [facility] Re05/06/17 SEX: F Status: DEP REF SPEC: [id number] MATILDE: 05/06/17- SUBM DR: Kelin Waters DO REQ: [id number] RECD: 05/06/17 STATUS: IMAN GAVIN DR: Vicki Neff MD _ ORDERED: LEVEL 4/3 COMMENTS: [id number] FINAL DIAGNOSIS 1. Small bowel, duodenum, biopsy: -- Small bowel mucosa with normal villous architecture and no significant pathologic abnormality. 2. Stomach, antrum, biopsy: -- Gastric antral and fundic mucosa with no significant pathologic abnormality. -- No active gastritis nor Helicobacter pylori-like organisms are identified. 3. Gastroesophageal junction, biopsy: -- Gastroesophageal transition zone mucosa with goblet cell/intestinal metaplasia. -- No dysplasia identified. -- Reactive glandular and squamous epithelial changes. -- No specific features of active reflux esophagitis identified. CLINICAL HISTORY 67 year old female with gastroesophageal reflux disease POST-OPERATIVE DIAGNOSIS Schatzki?s ring ? non-obstructing with biopsy; gastroesophageal junction at 33 cm with biopsy (irregular); 5 cm hiatal hernia (38-33 cm); loose gastric cardiac sling; minimal change antral gastritis with biopsy; normal duodenum with biopsy; normal mid ad proximal esophagus. Conclusions/Plan: Follow-up pathology; proton pump inhibitor daily ; follow-up with Adore Goldsmith CONTINUED ON NEXT PAGE * ML=Testing performed at Main Lab DEPARTMENT OF PATHOLOGY, [address] [place] [address] Suraj Stanton M.D. Director [facility] # [id number] RUN DATE: 05/08/17 [facility] LAB LIVE PAGE 2 Patient: MARTHA FUENTES [id number] (Continued) GROSS DESCRIPTION (Continued) GROSS DESCRIPTION 1. The specimen is received in formalin labeled, Biopsy Duodenum, and consists of two boston irregular soft tissue fragments measuring 0.3 x 0.2 x 0.2 cm and 0.5 x 0.2 x 0.2 cm which are submitted entirely in one cassette. 2. The specimen is received in formalin labeled, Biopsy Gastric Antrum/Body , and consists of two boston irregular soft tissue fragments measuring 0.3 x 0.2 x 0.1 cm and 0.6 x 0.2 x 0.1 cm which are submitted entirely in one cassette. 3. The specimen is received in formalin labeled, Biopsy Esophagogastric Junction, and consists of a 0.5 x 0.4 x 0.1 cm aggregate of boston-white irregular soft tissue fragments which is submitted entirely in one cassette. Signed (signature on file) Suraj Stanton MD [id number] END OF REPORT * ML=Testing performed at Main Lab DEPARTMENT OF PATHOLOGY, [address] [place] [address] Suraj Stanton M.D. Director [facility] # [id number] 3 SEE RESULT BELOW Name: MARTHA FUENTES : [address]: Kelin Waters DO Acct: [id number] Unit: [id number] AGE: 67 Location: [facility] Re05/06/17 SEX: F Status: DEP REF SPEC: [id number] MATILDE: 05/06/17-[address] [facility] [address]: Kelin Waters DO REQ: [id number] RECD: 05/06/17 STATUS: LUIS GAVIN DR: Vicki Neff MD _ SOURCE: GAS ANTRUM [facility]: ORDERED: Clotest Procedure Result Reported Site Clotest Final 05/07/17- 806 ML Clotest Negative * ML - MAIN LAB ([facility]) . END OF REPORT * ML=Testing performed at Main Lab DEPARTMENT OF PATHOLOGY, [address] [place] [address] Suraj Stanton M.D. Director [facility] # [id number] 4 Persistent findings compatible with the patient's known low-grade lymphoproliferative disorder. Reviewed by Dr. Stanton 5 consistent w/ previous results 6 1 sst 7 Positive: 5 of the following Borrelia-specific bands: 18,23,28,30,39,41,45,58, 66, and 93. Negative: No bands or banding patterns which do not meet positive criteria. 8 Note: An equivocal or positive EIA result followed by a negative Western Blot result is considered NEGATIVE. An equivocal or positive EIA result followed by a positive Western Blot is considered POSITIVE by the CDC. Positive: 2 of the following bands: 23,39 or 41 Negative: No bands or banding patterns which do not meet positive criteria. Criteria for positivity are those recommended by CDC/ASTPHLD. p23=Osp C, j39=acjiinghg Note: Sera from individuals with the following may cross react in the [place] Western Blot assays: other spirochetal diseases (periodontal disease, leptospirosis, relapsing fever, yaws, and pinta); connective autoimmune (Rheumatoid Arthritis and Systemic Lupus Erythematosus and also individuals with Antinuclear Antibody); other infections ([place] Spotted Fever; Charlie-Woo Virus, and Cytomegalovirus). 9 Monospot added per pathologist's request. 10 Mild absolute lymphocytosis, favor reactive. Additional studies may be considered to rule out lymphoproliferative disorder as clinically warranted. 11 Monospot added per pathologist's request. 12 Leukocytosis with mild absolute lymphocytosis. Reviewed by Dr. 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 Interpretative data: Blasts: 0% of gated events Lymphocytes: 58% of gated events B-cells: 38% of lymphocytes, CD19 moderate to bright, lambda-restricted (bright), CD10 negative, CD5 negative, CD20 moderate to bright, CD23 negative, CD38 negative, CD22 positive, CD11c negative, CD103 negative T-cells/NK cells: No aberrant population detected. Markers tested: CD3, CD10, CD16, CD19, CD34, CD45, kappa surface light chains, lambda surface light chains, 7-AAD, CD5, CD11c, CD20, CD22, CD23, CD38, CD103. Quality Assessment: Acceptable Viability: Acceptable Viable lymphocytes (7-AAD): 96% Specimen received within validated guidelines. A Wood-[employer] stained slide prepared from the flow cytometry specimen was examined for quality purposes. Electronically signed by: Mary Jane Teague MD Technical component performed by: [address] [address] Ton Cylinder Inspector: Sridhar De Los Santos II, MD, PhD. 14 consistent w/ previous results 15 RUN DATE: 08/02/14 [facility] LAB LIVE PAGE 1 RUN TIME: [address] [place] [address] Specimen Inquiry Name: MARTHA FUENTES : [address]: Shelly Barros MD Acct: [id number] Unit: [id number] AGE: 64 Location: [facility] Re08/02/14 SEX: F Status: REG REF SPEC: [id number] MATILDE: 08/02/[address] [facility] [address]: Esme Rudd PA-C REQ: [id number] RECD: 08/02/14 STATUS: LUIS GAVIN DR: Shelly Neff MD _ SOURCE: THROAT SPDESC: ORDERED: Rapid Strep A Procedure Result Verified Site Rapid Strep A Final 08/02/14- 1544 ML Organism 1 Negative Strep Group A Antigen testing by enzyme immunoassay. The software educator and regulatory agencies both recommend that a throat culture for beta strep be performed if a Rapid Group A Strep assay yields a negative result. Therefore a culture will be automatically performed on all negative samples. * ML - MAIN LAB ([facility]) . END OF REPORT * ML=Testing performed at Main Lab DEPARTMENT OF PATHOLOGY, [facility] [place], [place] [address] Suraj Stanton M.D. Director [facility] # [id number] 16 RUN DATE: 08/04/14 [facility] LAB LIVE PAGE 1 RUN TIME: [address] [facility] [employer] [place], [place] [address] Specimen Inquiry Name: MARTHA FUENTES : [address]: Shelly Barros MD Acct: [id number] Unit: [id number] AGE: 64 Location: [facility] Re08/02/14 SEX: F Status: REG REF SPEC: [id number] MATILDE: 08/02/14-[address]: Esme Rudd PA-C REQ: [id number] RECD: 08/02/14 STATUS: LUIS GAVIN DR: Shelly Neff MD _ SOURCE: THROAT SPDESC: ORDERED: Rapid Strep A, Throat Beta Str Procedure Result Verified Site Rapid Strep A Final 08/02/14- 1544 ML Organism 1 Negative Strep Group A Antigen testing by enzyme immunoassay. The software educator and regulatory agencies both recommend that a throat culture for beta strep be performed if a Rapid Group A Strep assay yields a negative result. Therefore a culture will be automatically performed on all negative samples. Throat Beta Strep Culture Final 08/04/14- 0814 ML Negative For Group A Beta Streptococcus * ML - [facility] ([facility]) . END OF REPORT * ML=Testing performed at [facility] DEPARTMENT OF PATHOLOGY, [address] [place] [address] Suraj Stanton M.D. Director [facility] # [id number] 17 RESULTS VERIFIED BY REPEAT ANALYSIS 18 Monospot added per pathologist's request. 19 N 20 RESULTS VERIFIED BY REPEAT ANALYSIS 04 Aug 2012 14:13 22 RESULT: Culture without mitogens 23 Method Analyzed Counted Karyotyped Band Level -------- ------- GTL 20 0 2 Total 20 0 2 400 24 No clonal abnormality was apparent. FISH studies for CLL are abnormal with a trisomy 12 clone (reported separately). FISH studies for B-cell lymphoma are pending (reported separately). 25 RESULT: Suraj Tariq PhD 26 10 Aug 2012 15:44 Test Performed by: [address] [address] Ton Cylinder Inspector: Reyes Santos III, M.D. 27 A Mvqrdz-Lkkixr-xrrjtau slide prepared from the flow cytometry specimen is examined. The specimen contains small lymphocytes with round nuclear contours, coarsely clumped chromatin and inconspicuous nucleoli. 28 %Lymphs: 33% Results: Blasts: No increase B-cells: Two distinct monotypic B-cell populations detected: Population 1: Monotypic lambda Express: CD19, and CD45. Do not express: CD10. Estimated size: 57% gated lymphoid events; 19% total analyzed events Population 2: Monotypic kappa Express: CD19, and CD45. Do not express: CD10. Estimated size: 3% gated lymphoid events; 2% total analyzed events T-cells/NK-cells: No increase Viability: Acceptable Viable lymphocytes (7-AAD): 87% Quality Assessment: Specimen received within validated guidelines. Flow cytometry analysis performed with antibodies to the following antigens: Triage panel: CD3, CD10, CD16, CD19, CD34, CD45 and kappa and lambda surface light chains. 29 Bone marrow, flow cytometric immunophenotyping: Two light chain-restricted B-cell populations are present, consistent with involvement by the patient's previously identified (1) lambda positive CD5-negative B-cell population, and (2) kappa and CD5-positive B-cell population of uncertain significance, respectively. A complete B-cell panel was not performed as this process has been previously fully immunophenotyped (see [id number]; collected 07/27/2012). Comment: Correlation of the flow cytometry results with the bone marrow aspirate and biopsy findings, clinical history and other laboratory features is required for a definitive diagnosis. If desired, we can provide diagnostic services as part of a hematopathology consultation. Please contact the signing pathologist at if you have further questions regarding these analyses. Reviewed by: Leigh Melendez M.D 02:53:36 Analyte Specific Reagent: This test was developed and its performance characteristics determined by [facility]. It has not been cleared or approved by the U.S. Food and Drug Administration. Test Performed by: [address] [address] Ton Cylinder Inspector: Reyes Santos III, M.D. 04 Aug 2012 14:13 31 RESULT: Culture without mitogens 32 Method Analyzed Counted Karyotyped Band Level -------- ------- GTL 20 0 2 Total 20 0 2 400 33 No clonal abnormality was apparent. FISH studies for CLL are abnormal with a trisomy 12 clone (reported separately). FISH studies for B-cell lymphoma are pending (reported separately). 34 RESULT: Suraj Tariq PhD 35 10 Aug 2012 15:44 Test Performed by: [place] [address] Ton Cylinder Inspector: Reyes Santos III, M.D. 36 A Ebyibh-Vcmtsw-orzecfs slide prepared from the flow cytometry specimen is examined. The specimen contains small lymphocytes with round nuclear contours, coarsely clumped chromatin and inconspicuous nucleoli. 37 %Lymphs: 33% Results: Blasts: No increase B-cells: Two distinct monotypic B-cell populations detected: Population 1: Monotypic lambda Express: CD19, and CD45. Do not express: CD10. Estimated size: 57% gated lymphoid events; 19% total analyzed events Population 2: Monotypic kappa Express: CD19, and CD45. Do not express: CD10. Estimated size: 3% gated lymphoid events; 2% total analyzed events T-cells/NK-cells: No increase Viability: Acceptable Viable lymphocytes (7-AAD): 87% Quality Assessment: Specimen received within validated guidelines. Flow cytometry analysis performed with antibodies to the following antigens: Triage panel: CD3, CD10, CD16, CD19, CD34, CD45 and kappa and lambda surface light chains. 38 Bone marrow, flow cytometric immunophenotyping: Two light chain-restricted B-cell populations are present, consistent with involvement by the patient's previously identified (1) lambda positive CD5-negative B-cell population, and (2) kappa and CD5-positive B-cell population of uncertain significance, respectively. A complete B-cell panel was not performed as this process has been previously fully immunophenotyped (see [id number]; collected 07/27/2012). Comment: Correlation of the flow cytometry results with the bone marrow aspirate and biopsy findings, clinical history and other laboratory features is required for a definitive diagnosis. If desired, we can provide diagnostic services as part of a hematopathology consultation. Please contact the signing pathologist at if you have further questions regarding these analyses. Reviewed by: Leigh Melendez M.D 02:53:36 Analyte Specific Reagent: This test was developed and its performance characteristics determined by [facility]. It has not been cleared or approved by the U.S. Food and Drug Administration. Test Performed by: [facility] - [address] [address] Ton Cylinder Inspector: Reyes Santos III, M.D. 39 04 Aug 2012 13:29 40 RESULT: lymphoma, leukocytosis 41 Locus and probes [Strategy;#nuclei;Class] 6cen(D6Z1), 6q23.3(MYB) [COPY#;200;ASR] 11cen(D11Z1), 11q22.3(MAXX) [COPY#;200;ASR] 12cen(D12Z3), 12q15(MDM2) [COPY#;200;ASR] 13q14(O63X593), 13q34(LAMP1) [COPY#;200;ASR] 11q13(CCND1-XT), 14q32(IGH-XT) [DFISH;500;ASR] 17p13.1(TP53), 17cen(D17Z1) [COPY#;200;ASR] Probe strategies include: DFISH=dual color, double fusion; COPY#=region gain and loss. 42 Abnormality Result (%) %Cutoff 6q-(D6Z1x2,MYBx1) Normal <4.0 11q- Normal <7.5 +12(D12Z3,MDM2)x3 Abnormal (28.5%) <2.5 13q-x1 Normal <7.0 13q-x2 Normal <1.5 t(11;14) CCND1/IGH fusion Normal <0.6 +14q32(IGHx3) Normal <3.0 17p-(TP53x1,L39M4i6) Normal <9.5 NOMENCLATURE: nuc serena(D12Z3,MDM2)x3[57/200] 43 The result is abnormal and indicates trisomy 12 in 28.5% of nuclei. In patients with CLL, trisomy 12 at diagnosis is associated with an intermediate to unfavorable prognosis. Dohner et al., N Engl J Med 343:2115-0440, 2000; Yany et al., Brit J Haematol 121:287-295, 2003; Ana Laura et al., Leuk Lymph 47:2505-1167, 2006. Chromosome and other FISH studies pending and reported separately. Previous Studies DATE SPECIMEN RESULT 07/27/2012 Blood BCR and ABL1 within normal limits DISCLAIMER: Applicable to Analyte Specific Reagent (ASR) and Laboratory developed tests (LDT). This test was developed and its performance characteristics determined by [facility]. It has not been cleared or approved by the U.S. Food and Drug Administration. This FISH test does not rule out other chromosome abnormalities. 44 RESULT: Paulo Zepeda MD 45 07 Aug 2012 10:12 Test Performed by: [address] [address] Ton Cylinder Inspector: Reyes Santos III, M.D. 46 10 Aug 2012 14:24 47 Locus and probes [Strategy;#nuclei;Class] 3q27(3'BCL6,5'BCL6) [BAP;200;ASR] 8q24(5'MYC,3'MYC) [BAP;200;ASR] 8cen(D8Z2), 8q24(MYC), 14q32(IGH) [DFISH;500;ASR] 8q24(MYC), 22q11.2(IGL) [DFISH;500;LDT] 11q21[BIRC3(API2)], 18q21(MALT1) [DFISH;500;ASR] 14q32(IGH), 18q21(BCL2) [DFISH;500;ASR] Probe strategies include: DFISH=dual color, double fusion; BAP=break-apart probe. 48 Abnormality Result(%) 95% normal cutoff 3q27(BCL6 sep) normal <3.0 8q24(MYC sep) normal <6.5 t(8;14)(MYC/IGH) normal <0.6 t(8;22)(MYC/IGL) normal <0.6 t(11;18)(BIRC3/MALT1) normal <0.6 +14q32(IGHx3) normal <2.4 t(14;18)(IGH/BCL2) normal <0.6 NOMENCLATURE: Interphase FISH is normal for all loci studied. 49 This result is within normal limits for the B-cell lymphoma panel. Chromosome studies are normal and other FISH studies are abnormal and reported separately. Previous Studies DATE SPECIMEN RESULT 07/27/2012 Blood BCR and ABL1 within normal limits DISCLAIMER: Applicable to Analyte Specific Reagent (ASR) and Laboratory Developed Tests (LDT). This test was developed and its performance characteristics determined by [facility]. It has not been cleared or approved by the U.S. Food and Drug Administration. This FISH test does not rule out other chromosome abnormalities. 50 RESULT: Suraj Tariq PhD 51 24 Aug 2012 10:05 Test Performed by: [address] [address] Ton Cylinder Inspector: Reyes Santos III, M.D. 52 28 Jul 2012 13:08 53 Locus and probes [Strategy;#nuclei;Class] 9q34(ABL1), 22q11.2(BCR) [DFISH;500;ASR] Probe strategy: DFISH=dual color, double fusion. 54 Abnormality Result %Cutoff BCR/ABL1 fusion Normal <0.6 NOMENCLATURE nuc serena(ABL1,BCR)x2[500] Of 500 nuclei, 0% had fusion of BCR and ABL1. 55 The result is within normal limits for the BCR and ABL1 gene regions. DISCLAIMER: Analyte Specific Reagent (ASR). This test was developed and its performance characteristics determined by [facility]. It has not been cleared or approved by the U.S. Food and Drug Administration. This FISH test does not rule out other chromosome abnormalities. 56 RESULT: Suraj Tariq PhD 57 31 Jul 2012 09:25 Test Performed by: [address] [address] Ton Cylinder Inspector: Reyes Santos III, M.D. 58 Because ethnic data is not always readily available, this report includes an eGFR for both -Americans and non- Americans. The National Kidney Disease Education Program (NKDEP) does not endorse the use of the MDRD equation for patients that are not between the ages of 18 and 70, are , have extremes of body size, muscle mass, or nutritional status, or are non- or non-. According to the National Kidney Foundation, irrespective of diagnosis, the stage of the disease is based on the level of kidney function: Stage Description GFR(mL/min/1.73 m(2)) 1 Kidney damage with normal or decreased GFR 90 2 Kidney damage with mild decrease in GFR 60-89 3 Moderate decrease in GFR 30-59 4 Severe decrease in GFR 15-29 5 Kidney failure <15 (or dialysis) 59 A Wiqraw-Bgvire-jhsdsrx slide prepared from the flow cytometry specimen is examined. Small to medium sized lymphocytes with variable irregular nuclei and moderately abundant cytoplasm. 60 WBC: 10.2 x 10(9)/L %Lymphs (CBC/automated differential): 68% #Lymphs (CBC/automated differential): 6.9 x 10(9)/L Results: Blasts: No increase B-cells: Two monotypic B-cell population present. Population 1: Monotypic lambda (bright) Express: CD19, CD20, CD45. Do not express: CD5, CD10, CD103,. Estimated size: 38% gated lymphoid events; 23% total analyzed events Population 2: Monotypic kappa (bright) Express: CD19, CD20, CD5, CD23 (partial), CD45. Do not express: CD10. Estimated size: 1% gated lymphoid events; 1% total analyzed events Absolute B-cell count (calculated): 0.1 x 10(9)/L T-cells/NK-cells: No increase Viability: Acceptable Viable lymphocytes (7-AAD): 100% Quality Assessment: Specimen received within validated guidelines. Flow cytometry analysis performed with antibodies to the following antigens: Triage panel: CD3, CD10, CD16, CD19, CD34, CD45 and kappa and lambda surface light chains. B-cell panel: CD5, CD10, CD11c, CD20, CD22, CD23, CD38, CD45, CD103 and kappa and lambda surface light chains. 61 Peripheral blood, flow cytometric immunophenotyping: Two distinct monotypic B-cell populations detected: 1. The most predominant population is lambda restricted with a non-specific phenotype (lacks expression of CD5, CD10 and CD103). 2. A second minor population is kappa restricted and coexpresses CD5 and partial CD23. The significance of this population is uncertain due to the small numbers (1% of total events). Reviewed by: Alexa Stephenson M.D. 04:31:28 Analyte Specific Reagent: This test was developed and its performance characteristics determined by [facility]. It has not been cleared or approved by the U.S. Food and Drug Administration. Test Performed by: [place] [address] Ton Cylinder Inspector: Reyes Santos III, M.D. 62 --- 07/27/12 1042 --- Granulocyte % previously reported as: 27.1 L % @ Edited by: Cuauhtemoc Raines @ Reason: Adding manual diff 63 --- 07/27/12 1042 --- Lymphocyte % previously reported as: 65.7 H % @ Edited by: Cuauhtemoc Raines @ Reason: Adding manual diff 64 --- 07/27/12 1043 --- Monocyte % previously reported as: 5.0 % @ Edited by: Cuauhtemoc Raiens @ Reason: Adding manual diff 65 --- 07/27/12 1043 --- Eosinophil % previously reported as: 1.3 % @ Edited by: Cuauhtemoc Raines @ Reason: Adding manual diff 66 --- 07/27/12 1043 --- Basophil % previously reported as: 0.9 % @ Edited by: Cuauhtemoc Raines @ Reason: Adding manual diff 67 CBC and smear reviewed. Inverted PMN/lymph ratio noted. No blasts seen. REVIEWED BY SURAJ STANTON MD 68 @07/27/12 1045: Manual Diff added. RFLXG=DIFF. @07/27/12 1045: Path Review added. RFLXG=PATH. 69 Reference Range and Interpretation: TnI (ng/ml) Interpretation Less Than 0.06 ng/mL Not supportive of diagnosis of CA 0.06 - 0.50 ng/ml Indeterminate: suggest serial studies if clinically indicated. Greater than 0.5 ng/mL Consistent with diagnosis of CA 70 Monospot added per pathologist's request. Verbal to [id number] by [id number] at 0937 on 04/20/12. Results read back accurately. 71 CBC and smear reviewed. Inverted PMN/lymph ratio noted. No blasts seen. A lymphoproliferative disorder cannot be entirely ruled out. Additional studies may be considered. REVIEWED BY SURAJ STANTON MD 72 N 73 Reference Range and Interpretation: TnI (ng/ml) Interpretation Less Than 0.06 ng/mL Not supportive of diagnosis of CA 0.06 - 0.50 ng/ml Indeterminate: suggest serial studies if clinically indicated. Greater than 0.5 ng/mL Consistent with diagnosis of CA 74 Because ethnic data is not always readily available, this report includes an eGFR for both -Americans and non- Americans. The National Kidney Disease Education Program (NKDEP) does not endorse the use of the MDRD equation for patients that are not between the ages of 18 and 70, are , have extremes of body size, muscle mass, or nutritional status, or are non- or non-. According to the National Kidney Foundation, irrespective of diagnosis, the stage of the disease is based on the level of kidney function: Stage Description GFR(mL/min/1.73 m(2)) 1 Kidney damage with normal or decreased GFR 90 2 Kidney damage with mild decrease in GFR 60-89 3 Moderate decrease in GFR 30-59 4 Severe decrease in GFR 15-29 5 Kidney failure <15 (or dialysis) 75 COLLECTED FROM 06/12/1030 THROUGH 06/13/1045. 76 Recent studies consider the lower limit of 32.0 ng/mL to be a threshold for optimal health. Dru MARI. J Nutr. 2005 May;135(2):317-22. 77 Reference Range: Females Premenopausal 112 - 738 Postmenopausal 142 - 1351 78 The following test(s) has been cancelled with a brief explanation for the cancellation: Urine N-telopeptide cancelled due to no specimen submitted for testing Client notified 79 RBC/PLTS NORMAL ON SMEAR 80 ---- RUN DATE: 12/27/08 [facility] NMI LIVE PAGE 1 RUN TIME: 1619 Specimen Inquiry RUN USER: INTERFACE -- Name: MARTHA FUENTES [facility]#: [id number] Status: REG REF Re12/26/08 Age/Sex: 58/F Unit#: [id number] Location: [facility]. : 46 -- Specimen: [id number] Spec Date: 12/26/[address]: Gerry santos MD Spec Type: SURGICAL P Received: 12/26/08-7483 Copies to: Wing fall MD SPECIMEN 1) RANDOM COLON BIOPSIES 2) BIOPSY COLON POLYP AT 20 CM. HISTORY POST-OP DIAGNOSIS: Two small polyps removed CLINICAL INFORMATION: Change in bowel habits, diarrhea GROSS DESCRIPTION 1) Specimen received in formalin labelled Martha Marylou Fuentes, Random Colon Biopsies and consists of multiple, boston, soft tissue fragments measuring 0.6 x 0.4 x 0.1 cm. Submitted entirely, one cassette. 2) Specimen received in formalin labelled Martha Tyler. Adrianaa, Biopsy Colon Polyps at 20 cm. and consists of two, boston, soft tissue fragments measuring 0.4 x 0.2 x 0.2 cm. Submitted entirely, one cassette. DIAGNOSIS 1) Colon, random biopsies: A) Findings compatible with mild microscopic/lymphocytic colitis. B) No evidence of collagenous colitis or other chronic inflammatory bowel process identified. C) No significant acute inflammation identified. 2) Colon, polyp at 20 cm.: A. Tubular adenoma. B. No high grade dysplasia or malignancy. Signed Electronically by: SURAJ STANTON MD 12/27/08 1616 -- -- DEPARTMENT OF PATHOLOGY, [address] [place] [address] [facility] Permit #[id number] Suraj Stanton M.D. Director Pepe Jesus M.D. Production Underwriter Dir ken -- 81 FASTING 82 NF^NONFORMED^STFORM 83 Giardia and cryptosporidium antigen testing performed by immunoassay. If patient is immunocompromised or has traveled to or is from a developing country, a full ova and parasite exam with microscopic (OPMIC) is recommended. All samples will be held one month in case full ova and parasite testing is requested. Contact the Microbiology Department at [phone]. N^NEGATIVE BY IMMUNOASSAY^CRY N^NEGATIVE BY IMMUNOASSAY^TIM 84 NO GROWTH OF CAMPYLOBACTER AFTER 48 HOURS 85 NEGATIVE FOR THE ENTERIC PATHOGENS - SALMONELLA, SHIGELLA, AEROMONAS, PLESIOMONAS AND YERSINIA. VIBRIO AND E. COLI 0157 NOT ROUTINELY TESTED FOR IN A STOOL CULTURE. PLEASE SUBMIT SAMPLE WITH SPECIFIC REQUEST FOR DESIRED ORGANISM(S). 86 N^NEGATIVE BY IMMUNOCHROMATOGRAPHIC ASSAY^ST1 N^NEGATIVE BY IMMUNOCHROMATOGRAPHIC ASSAY^ST2 Procedures Date CPT Code Description Status Comment 07/02/2017 18132 Nebulizer Treatment Completed 06/27/2017 Mammogram Completed 06/27/2016 Mammogram Completed No findings of malignancy, normal suggested follow-up mammogram in one year. 01/30/2016 Bone Mineral Density Test Completed 02/03/2015 90549 Dxa Bone Density Study One Or Completed More Sites Axial Skeleton 03/29/2014 84350 Pulse Oximetry Completed 02/25/2014 Colonoscopy Completed 08/13/2013 30705 Dxa Bone Density Study One Or Completed More Sites Axial Skeleton 08/13/2013 96603 Dxa Bone Density Vertebarl FX Completed Assessment 07/30/2013 Mammogram Completed 04/21/2012 95826 Electrocardiogram Complete Completed 03/12/2012 45582 Pulse Oximetry Completed 05/20/2011 49055 Pulse Oximetry Completed 03/16/2011 53971 Pulse Oximetry Completed 03/20/2010 Mammogram Completed 02/04/2008 Mammogram Completed 06/13/2005 Mammogram Completed Encounters Type Date Location Provider CPT E/M Dx Office Visit 05/09/2017 1:20p [facility] Vicki Neff 26778 K22.70 M.DHollie Office Visit 03/04/2017 3:40p Main Office Vicki Neff 14581 K21.9 M.DHollie Office Visit 10/08/2016 3:40p [facility] Vicki Neff 77361 E66.3 M.DHollie R73.01 E78.2 M25.562 Office Visit 07/18/2016 2:40p [facility] Office Vicki Neff M.D. 05984 E78.2 E66.3 R73.01 K21.9 E55.9 Office Visit 05/08/2016 10:00a Main Office Vicki Neff M.D. 79716 Z00.00 Z12.31 M85.89 E78.2 C85.90 E55.9 Office Visit 01/30/2016 10:40a [facility] Vicki Neff 01460 W57.xxxA Krysten Z23 S70.371A Office Visit 11/27/2015 10:50a Main Office Vicki Neff M.D. 29083 H25.13 Z01.818 Z12.31 Office Visit 07/05/2015 3:20p Main Office Vicki Neff M.D. 10399 J20.8 M25.562 M25.561 Office Visit 03/13/2015 6:30p Main Office Vicki Neff M.D. 43431 E55.9 R73.01 M81.0 Office Visit 01/12/2015 9:00a [facility] Vicki Neff M.D. 99782 Z00.01 M81.0 C85.90 R73.01 E55.9 E78.5 Z23 Office Visit 11/10/2014 10:30a Main Office Maria Del Carmen Garcia 80437 386.10 719.41 796.2 Office Visit 03/29/2014 1:45p [facility] Talya Baird, vivi-C 56277 465.9 466.0 Office Visit 01/04/2014 9:40a [facility] Vicki Neff M.D. 67424 733.00 202.80 268.9 V04.81 Office Visit 07/07/2013 11:00a [facility] Wing Quijano M.D. 43982 V70.0 272.4 300.00 790.21 733.00 Office Visit 06/21/2013 11:00a Main Office Warren Deluna M.D. 40893 786.50 Office Visit 05/12/2013 9:20a Main Office Warren Deluna M.D. 29918 381.01 Office Visit 02/26/2013 2:00p [facility] Katalina Wasserman vivi-C 22205 465.8 Office Visit 01/06/2013 1:00p [facility] Wing Quijano M.D. 11980 465.9 Office Visit 07/17/2012 10:20a [facility] Wing Quijano M.D. 27674 288.60 Office Visit 04/21/2012 2:50p [facility] Wing Quijano M.D. 17421 786.50 300.00 288.60 Office Visit 03/12/2012 8:50a Main Office Wing Quijano M.D. 48103 465.9 Office Visit 12/26/2011 11:15a [facility] Emilie Chowrer, [facility] 60626 386.30 V04.81 924.10 Office Visit 05/20/2011 11:00a Main Office Charanjit Denis M.D. 06658 461.8 462 Office Visit 03/16/2011 11:30a Main Office Katalina Wasserman Joceline 46292 466.0 Office Visit 02/14/2011 3:20p [facility] Vicki Neff M.D. 85720 466.0 Office Visit 12/12/2010 2:15p [facility] Emilie Wise, [facility] 06083 724.5 Office Visit 08/14/2010 11:20a [facility] Wing Quijano M.D. 32413 466.0 Office Visit 08/11/2010 9:45a Main Office Miguel Ascencio M.D. 96879 462 Office Visit 03/29/2010 9:40a Main Office Wing Quijano M.D. 16897 733.00 381.81 V06.5 v06.5 Office Visit 03/13/2010 5:40p Main Office Mark Gillespie M.D. 00001 V04.81 v04.81 733.00 461.0 Office Visit 11/08/2009 4:15p [facility] Emilie Chowrer, [facility] 98015 729.5 448.1 Office Visit 09/28/2009 6:20p Main Office Wing Quijano M.D. 77515 465.9 Office Visit 11/08/2008 3:10p Main Office Charanjit Denis M.D. 58141 787.91 272.4 Office Visit 10/31/2008 2:20p [facility] Vangie Quintero M.D. [id number] 787.91 272.2 Office Visit 05/31/2008 8:40a Main Office Mark Gillespie M.D. 16466 386.11 Office Visit 02/09/2008 3:30p Main Office Katalina Wasserman Stacy-Susan 72751 V72.31 272.2 Office Visit 01/26/2008 1:00p Main Office Wing Quijano M.D. 68426 V70.0 V77.91 V76.10 V76.51 V49.81 733.00 V04.81 Plan of Care 07/02/2017 - Vicki Neff M.D.R06.2 WheezingComments:medrol dose ludy - steroid medicineasmanex 4 puffs twice a day. wash your mouth out afterwards. do this for 3-4 days. begin to decrease.can also use the ventolin 2 puffs every 4 hours. I gabrielle script you a nebulizer.You can use the nebulizer or the ventolin. 4 hours between each dosing. first choice of medicine for nebulizer is xopenex. you can hold off for a day or so on the second course of azithromycin.AllNew Medication:NebulizerXopenex 0.63 mg/3MLAlbuterol Sulfate ( 2.5 mg/3ML) 0.083%Medrol 4 mgComments:~B_~U_Medication Management~b_~u_ Patient Understands medications she's taking? Yes No Are there Barriers to Adherence? Yes No Has the patient been asked about herbal supplements and therapies, and OTC meds? Yes No
--- OUTSIDE RECORDS SUMMARY | 2017-07-06 07:16 | XMS REPORT ---
:1950 External Reference #:[id number] Author Organization [facility] Address [address] [place] [address] Phone [phone] Care Team Providers Name Role Phone Vicki Neff Care Team Information Exhibit Display Representative Unavailable Vicki Neff Primary Care Physician Unavailable Payers Type Date Identification Numbers Payment Provider Subscriber Commercial Effective: Policy Number: Medicare Blue Ppo Martha Fuentes 2015 [id number] Group Number: [id number] [address] [address] Group Name: [place] [address] PayID: [id number] Problems Date Description Provider Status Onset: 03/04/2011 [...] Father age 90 CHF. COPD. HTN. 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 Mother 94. hip fracture. ARthritis, HTN. First Son suicided age 40. First Daughter pituitary tumor removed, diabetes insipidus mostly resolved. 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 Paternal Grandmother Breast Cancer Paternal Uncles [place] age 50's Social History Type Date Description [...] Form Strength Qnty SIG Indications Ordering Provider Azithromycin 06/28 Active Tablets 250mg 6tabs 2 by mouth J01.90 Vicki L. /2017 today. 1 by Aishwarya, mouth daily x M.D. 4 Ventolin HFA 06/28 Active Aerosol 108(90Bas 18uni 2 puffs every J.90 Vicki L. e) ts 4 hours as Aishwarya, mcg/Act needed M.D. Cheratussin ac 06/28 Active Solution 100-10mg/ 100ml 5 -10 J01.90 Vicki L. 5ML milliliters Aishwarya, by mouth at M.D. night for cough Ocuvite 01/04 Active Tablets 1 po qd /2013 [facility] Calcium 03/29 Active Tablets 1250mg 90tab one tab po M81.0 Dimas A. /2009 s daily Krysten Quijano Multi-Vitamin Active Tablets 1 PO qd Unknown /0000 Omeprazole Active Capsules 20mg 1 by mouth Unknown /0000 DR every day Ranitidine HCL 03/04 Hx Capsules 300mg 90cap 1 by mouth at K21.9 Vicki LHollie /2016 s night. Henry Neff M.D. 03/13 Ranitidine HCL 07/18 Hx Capsules 300mg 90cap 1 by mouth at K21.9 Vicki LHollie s night. Henry Neff M.D. 03/03 Doxycycline 01/29 Hx Tablets 100mg 2tabs 2 pills by W57.xxxA Vicki Cunningham Hyclate mouth at the Aishwarya, - same time. M.D. 05/08 Physical 07/04 Hx evaluate and M25.562 Vicki Cunningham Therapy /2015 treat mike Aishwarya, - knee pain. M.D. 11/26 Vitamin D 01/20 Hx Capsules 68866Untm 12cap take 1 Vicki Cunningham (Ergocalcifero s capsule by ildefonso Neff) - mouth once M.D. 11/26 weekly for weeks. 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 /2012 and 1 po x 4 Krysten Quijano - days 02/26 Codeine 01/06 Hx Liquid 300-10mg/ 40ml 5ml before 465.9 Dimas A. Phosphate/Guai /2012 5ML bed qhs Krysten Quijano fenesin - 02/26 Guaifenesin ac 01/06 Hx Syrup 100-10mg/ 40ml 5ml po qhs as 465.9 Katalina 5ML needed for Lisy, - cough Afnp-C 02/26 Robitussin A-C 03/12 Hx 100ml 1-2 tsp po 465.9 Dimas A. q4h prn cough Krysten Quijano - 04/21 Azithromycin 03/12 Hx Tablets 250mg 6tabs 2 by mouth 465.9 Talya /2011 today and 1 Hilsdorf, - by mouth x 4 Afnp-C Azithromycin 05/20 Hx Tablets 250mg 6tabs 2 po today 461.8 Charanjit T. /2011 and 1 po x 4 Midura, - days M.D. 12/25 Robitussin A-C 05/20 Hx 120ml 1-2 tsp po 461.8 Charanjit T. q4h prn cough Midura, - M.D. 12/25 Azithromycin 03/16 Hx Tablets 250mg 6tabs 2 tabs today; 466.0 then one tab Lisy, - qd x 4 more Afnp-C Meclizine HCL 03/16 Hx Tablets 12.5mg 20tab take 1-2 bid 466.0 Katalina s prn for Lisy, - dizziness Afnp-C 05/20 Amoxicillin/Cl 02/14 Hx Tablets 875-125mg 20tab 1 po bid 466.0 Vicki Cunningham avulanate /2010 s with Kiara Neff - probiotics M.D. 03/16 and yogurt. /2010 Acetaminophen/ 02/14 Hx Tablets 300-30mg 20tab 1-2 po at hs. 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 avulanate s 10 days Kiara Gillespie M.D. 03/22 Metronidazole 11/08 Hx Tablets 500mg 21tab 1 po tid Charanjit T. s Henry Denis M.D. 09/28 Cipro 11/04 Hx Tablets 500mg 10tab 1 po bid for Vangie M. s 5 days Henry Quintero M.D. 11/08 Antivert 05/31 Hx Tablets 12.5mg 20tab 1-2 po tid Mark F. s prn Henry Gillespie M.D. 09/28 Zocor 02/08 Hx Tablets 10mg 90tab 1 po q hs 272.2 Katalina s Lisy, - Afnp-C 10/31 Actonel 01/27 Hx Tablets 35mg 4tabs 1 PO qweek Dimas A. Krysten Quijano - 09/28 Actonel Hx Tablets 75mg 12tab 1 qweek Dimas A. s Krysten Quijano - 01/27 Ceftin Hx Tablets 250mg 20tab 1 PO bid X 10 s Days - 02/08 Fosamax Hx Tablets 70mg 4tabs 1 po q week Dimas A. /0000 for Krysten Quijano - osteoporosis 12/25 Ibuprofen PM 00/ Hx Tablets 200-38mg qhs Unknown /0000 - 11/26 Immune Booster 00 Hx Liquid 90 gtts qd Unknown /0000 - 03/03 Immunizations CPT Code Status Date Vaccine Lot # [id number] Given 02/25/2017 High-Dose, Influenza Virus Vacccine-fluzone 65 [id number] and older 26803 Given 01/30/2016 Influenza Vac, Quadrivalent, Slit Virus, Im [id number] 25784 Given 01/12/2015 Pneumococcal Conjugate Vacc-13 [id number] 91777 Given 01/12/2015 High-Dose, Influenza Virus Vacccine-fluzone 65 [id number] and older 28568 Given 01/04/2014 High-Dose, Influenza Virus Vacccine-fluzone 65 [id number] and older 93875 Given 02/03/2013 Pneumococcal Immunization [id number] 64734 Given 02/03/2013 High-Dose, Influenza Virus Vacccine-fluzone 65 [id number] and older 23696 Given 12/26/2011 DO Not Use Split Influenza Virus Vaccine [id number] 76045 Given 10/24/2011 Zostivax [id number] 19427 Given 03/29/2010 Tdap Tetanus, W Pertussis [id number] 97575 Given 03/13/2010 DO Not Use Split Influenza Virus Vaccine [id number] 12369 Given 03/18/2009 DO Not Use Split Influenza Virus Vaccine [id number] 39348 Given 01/26/2008 DO Not Use Split Influenza Virus Vaccine [id number] Vital Signs Date Vital Result Comment 06/28/2017 BP Systolic 144 mmHg BP Diastolic [...] 4.3 x10^3/UL 1.5-7.2 Lymph# 4.4 x10^3/UL 0.7-4.9 Baldwin# 0.3 x10^3/UL 0.1-0.9 Gran % 47.0 % 42.2-75.2 Lymph % 49.1 % 20.5-51.1 Baldwin% 3.9 % 1.7-9.3 Comprehensive Metabolic Prof 05/09/2016 [...] 4.0 x10^3/UL 1.5-7.2 Lymph# 4.8 x10^3/UL 0.7-4.9 Baldwin# 0.4 x10^3/UL 0.1-0.9 Gran % 43.2 % 42.2-75.2 Lymph % 51.1 % 20.5-51.1 Baldwin% 4.7 % 1.7-9.3 Comprehensive Metabolic Prof 02/27/2016 [...] x10^3/UL 1.5-7.2 Lymph# 5.5 x10^3/UL High 0.7-4.9 Baldwin# 0.5 x10^3/UL 0.1-0.9 Gran % 37.1 % Low 42.2-75.2 Lymph % 57.5 % High 20.5-51.1 Baldwin% 5.4 % 1.7-9.3 Comprehensive Metabolic Prof 01/16/2015 [...] x10^3/UL 1.5-7.2 Lymph# 5.7 x10^3/UL High 0.7-4.9 Baldwin# 0.8 x10^3/UL 0.1-0.9 Gran % 42.6 % 42.2-75.2 Lymph % 50.2 % 20.5-51.1 Baldwin% 7.2 % 1.7-9.3 CBC Auto Diff 09/30/2013 [...] Protein NEGATIVE Urobil 0.2 Nitrite NEGATIVE Leukocytes (a/WW [facility]/Centrex) NEGATIVE Comprehensive Metabolic Prof 06/30/2013 Sodium 140 [...] x10^3/UL 1.5-7.2 Lymph# 6.3 x10^3/UL High 0.7-4.9 Baldwin# 0.5 x10^3/UL 0.1-0.9 Gran % 34.6 % Low 42.2-75.2 Lymph % 59.9 % High 20.5-51.1 Baldwin% 5.5 % 1.7-9.3 Oncology CBC Auto Diff [...] Specimen Bone Marrow BM Chromosome Specimen Id [id number] BM Chromosome Order Date 04 Aug 2012 14:1 <SEE NOTE> 21 BM Referral Reason lymphoma BM Chromosome Method See Comment 22 BM Chromo Banding Method See Comment 23 BM Cromosome Results 46,XX[20] BM Chromosome Interpretation See Comment 24 BM Chromosome Flitch Hanger See Comment 25 BM Chromosome Report Date [...] Specimen Bone Marrow BM Chromosome Specimen Id [id number] BM Chromosome Order Date 04 Aug 2012 14:1 <SEE NOTE> 30 BM Referral Reason lymphoma BM Chromosome Method See Comment 31 BM Chromo Banding Method See Comment 32 BM Cromosome Results 46,XX[20] BM Chromosome Interpretation See Comment 33 BM Chromosome Flitch Hanger See Comment 34 BM Chromosome Report Date 10 Aug 2012 15:4 <SEE NOTE> 35 Leukemia/Lymphoma Flow 08/03/2012 LCMS Microscopic Description See Comment 36 LCMS Special Studies See Comment 37 LCMS Final Diagnosis See Comment 38 Chronic Lymphocytic Leukemia 08/03/2012 FCLL Specimen Bone Marrow FCLL Specimen Id [id number] FCLL Order Date 04 Aug 2012 13:2 <SEE NOTE> 39 FCLL Reason for Referral See Comment 40 FCLL Method See Comment 41 FCLL Result See Comment 42 FCLL Interpretation See Comment 43 FCLL Flitch Hanger See Comment 44 FCLL Release Date 07 Aug 2012 10:1 <SEE NOTE> 45 B-Cell Lymphoma, Fish 08/03/2012 FBLP Specimen Bone Marrow FBLP Specimen Id [id number] FBLP Order Date 10 Aug 2012 14:2 <SEE NOTE> 46 FBLP Reason for Referral lymphoma FBLP Method See Comment 47 FBLP Result See Comment 48 FBLP Interpretation See Comment 49 FBLP Flitch Hanger See Comment 50 FBLP Release Date 24 [...] (Fish) Specimen Blood BCR/abl (Fish) Specimen Id [id number] BCR/abl (Fish) Order Date 28 Jul 2012 13:0 <SEE NOTE> 52 BCR/abl (Fish) Referral Reason leukocytosis BCR/abl (Fish) Method See Comment 53 BCR/abl Results See Comment 54 BCR/abl (Fish) Interpretation See Comment 55 BCR/abl (Fish) Flitch Hanger See Comment 56 BCR/abl (Fish) Report Date [...] N-Telopeptide Urine Cancelled Test SEE COMMENT 78 CBCM-Fma 09/28/2009 WBC 13.7 High 3.6-9.6 RBC 4.31 [...] - Z#Comments - Ua - Non Micro (Fma) 01/26/2008 Appearance CLEAR Color YELLOW Glucose NEG Bilirubin NEG Ketones NEG SP Grav 1.010 Blood NEG PH 5.5 Protein NEG Urobil 0.2 Nitrite NEG Leukocytes (Fma/CMC/Centrex) NEG Comprehensive Metabolic Prof 01/26/2008 Albumin 4.3 [...] 81 RDW 13.2 % 11.6-13.7 81 1 [id number] 2 SEE RESULT BELOW Name: MARTHA FUENETS : [address]: Kelin Waters DO Acct: [id number] Unit: [id number] AGE: 67 Location: ENDOC Re05/06/17 SEX: F Status: DEP REF SPEC: [id number] MATILDE: 05/06/17- SUBM DR: Kelin Waters DO REQ: [id number] RECD: 05/06/17 STATUS: IMAN GAVIN DR: Vicki Neff MD _ ORDERED: LEVEL 4/3 COMMENTS: [id number] FINAL DIAGNOSIS 1. Small bowel, duodenum, biopsy: [...] performed at Main Lab DEPARTMENT OF PATHOLOGY, [address] [place] [address] Suraj Stanton M.D. Director [facility] # [id number] RUN DATE: 05/08/17 [facility] LAB LIVE PAGE 2 Patient: MARTHA FUENTES [id number] (Continued) GROSS DESCRIPTION (Continued) GROSS DESCRIPTION 1. [...] performed at Main Lab DEPARTMENT OF PATHOLOGY, [address] [place] [address] Suraj Stanton M.D. Director YANCY # [id number] 3 SEE RESULT BELOW Name: MARTHA FUENTES : [address]: Kelin Waters DO Acct: [id number] Unit: [id number] AGE: 67 Location: [facility]OC Re05/06/17 SEX: F Status: DEP REF SPEC: [id number] MATILDE: 05/06/17-151 [facility] [address]: Kelin Waters DO REQ: [id number] RECD: 05/06/17 STATUS: LUIS GAVIN DR: Vicki Neff MD _ SOURCE: GAS ANTRUM SPDESC: ORDERED: Clotest Procedure Result Reported Site Clotest Final 05/07/17- 806 ML Clotest Negative * ML - MAIN LAB ([facility]) . END OF REPORT * ML=Testing performed at Main Lab DEPARTMENT OF PATHOLOGY, [address] [place] [address] Suraj Stanton M.D. Director [facility] # [id number] 4 Persistent findings compatible with the patient's [...] are those recommended by CDC/ASTPHLD. p23=Osp C, p17=rlngglbkw Note: Sera from individuals with the following may cross react in the Lyme Western Blot assays: other spirochetal diseases (periodontal disease, leptospirosis, relapsing fever, yaws, and pinta); connective autoimmune (Rheumatoid Arthritis and Systemic Lupus Erythematosus and also individuals with Antinuclear Antibody); other infections ([place] Spotted Fever; Charlie-Woo Virus, and Cytomegalovirus). 9 [...] Jane Teague MD Technical component performed by: [place] [address] [employer]: Sridhar De Los Santos II, MD, PhD. 14 consistent w/ previous results 15 RUN DATE: 08/02/14 [facility] LAB LIVE PAGE 1 RUN TIME: [address] [place] [address] Specimen Inquiry Name: MARTHA FUENTES : [address]: Shelly Barros MD Acct: [id number] Unit: [id number] AGE: 64 Location: [facility] Re08/02/14 SEX: F Status: REG REF SPEC: [id number] MATILDE: 08/02/[address]: Esme Rudd PA-C REQ: [id number] RECD: 08/02/14 STATUS: LUIS GAVIN DR: Shelly Neff MD _ SOURCE: THROAT SPDESC: ORDERED: Rapid Strep A Procedure Result Verified Site Rapid Strep A Final 08/02/14- 1544 ML Organism 1 Negative Strep Group A Antigen testing by enzyme immunoassay. The sand screener and regulatory agencies both recommend that a throat culture for beta strep be performed if a Rapid Group A Strep assay yields a negative result. Therefore a culture will be automatically performed on all negative samples. * ML - MAIN LAB ([facility]) . END OF REPORT * ML=Testing performed at Main Lab DEPARTMENT OF PATHOLOGY, [facility] [employer] [place], [place] [address] Suraj Stanton M.D. Director [facility] # [id number] 16 RUN DATE: 08/04/14 [facility] LAB LIVE PAGE 1 RUN TIME: [address] [facility] [place], [place] [address] Specimen Inquiry Name: MARTHA FUENTES : [address]: Shelly Barros MD Acct: [id number] Unit: [id number] AGE: 64 Location: [facility] Re08/02/14 SEX: F Status: REG REF SPEC: [id number] MATILDE: 08/02/14-[address]: Esme Rudd PA-C REQ: [id number] RECD: 08/02/14-1521 STATUS: COMP OTHR DR: Shelly Neff MD _ SOURCE: THROAT SPDESC: ORDERED: Rapid Strep A, Throat Beta Str Procedure Result Verified Site Rapid Strep A Final 08/02/14- 1544 ML Organism 1 Negative Strep Group A Antigen testing by enzyme immunoassay. The sand screener and regulatory agencies both recommend that a throat culture for beta strep be performed if a Rapid Group A Strep assay yields a negative result. Therefore a culture will be automatically performed on all negative samples. Throat Beta Strep Culture Final 08/04/14- 0814 ML Negative For Group A Beta Streptococcus * ML - [facility] ([facility]) . END OF REPORT * ML=Testing performed at Main Lab DEPARTMENT OF PATHOLOGY, [address] [place] [address] uSraj Stanton M.D. Director [facility] # [id number] 17 RESULTS VERIFIED BY REPEAT ANALYSIS 18 [...] are pending (reported separately). 25 RESULT: Suraj Ildefonso Tariq PhD 26 10 Aug 2012 15:44 Test Performed by: [address] [address] [employer]: Reyes Santos III, M.D. 27 A Sxrkkz-Ocxywi-mlshxeo slide prepared from the flow cytometry specimen [...] process has been previously fully immunophenotyped (see [id number]; collected 07/27/2012). Comment: Correlation of the flow [...] developed and its performance characteristics determined by [facility]. It has not been cleared or approved by the U.S. Food and Drug Administration. Test Performed by: [place] [address] [employer]: Reyes Santos III, M.D. 30 04 Aug 2012 14:13 31 RESULT: Culture [...] 10 Aug 2012 15:44 Test Performed by: [address] [address] [employer]: Reyes Santos III, M.D. 36 A Azjpbg-Istuqn-inlvalr slide prepared from the flow cytometry specimen [...] process has been previously fully immunophenotyped (see [id number]; collected 07/27/2012). Comment: Correlation of the flow [...] developed and its performance characteristics determined by [facility]. It has not been cleared or approved by the U.S. Food and Drug Administration. Test Performed by: [address] [address] [employer]: Reyes Santos III, M.D. 39 04 Aug 2012 13:29 40 RESULT: lymphoma, leukocytosis 41 Locus and probes [Strategy;#nuclei;Class] 6cen(D6Z1), 6q23.3(MYB) [COPY#;200;ASR] 11cen(D11Z1), 11q22.3(MAXX) [COPY#;200;ASR] 12cen(D12Z3), 12q15(MDM2) [COPY#;200;ASR] 13q14(H38B746), 13q34(LAMP1) [COPY#;200;ASR] 11q13(CCND1-XT), 14q32(IGH-XT) [DFISH;500;ASR] 17p13.1(TP53), 17cen(D17Z1) [COPY#;200;ASR] Probe strategies include: DFISH=dual color, double fusion; COPY#=region gain and loss. 42 Abnormality Result (%) %Cutoff 6q-(D6Z1x2,MYBx1) Normal <4.0 11q- Normal <7.5 +12(D12Z3,MDM2)x3 Abnormal (28.5%) <2.5 13q-x1 Normal <7.0 13q-x2 Normal <1.5 t(11;14) CCND1/IGH fusion Normal <0.6 +14q32(IGHx3) Normal <3.0 17p-(TP53x1,P58D4d0) Normal <9.5 NOMENCLATURE: nuc serena(D12Z3,MDM2)x3[57/200] 43 The result is abnormal and indicates trisomy 12 in 28.5% of nuclei. In patients with CLL, trisomy 12 at diagnosis is associated with an intermediate to unfavorable prognosis. Dokeer et al., N Engl J Med 343:3487-8115, 2000; Yany et al., Brit J Haematol 121:287-295, 2003; Miguelt et al., Leuk Lymph 47:2595-2415, 2006. Chromosome and other FISH studies pending and reported separately. Previous Studies DATE SPECIMEN RESULT 07/27/2012 Blood BCR and ABL1 within normal limits DISCLAIMER: Applicable to Analyte Specific Reagent (ASR) and Laboratory developed tests (LDT). This test was developed and its performance characteristics determined by [facility]. It has not been cleared or approved by the U.S. Food and Drug Administration. This FISH test does not rule out other chromosome abnormalities. 44 RESULT: Paulo Zepdea MD 45 07 Aug 2012 10:12 Test Performed by: [facility] - [address] [address] [employer]: Reyes Santos III, M.D. 46 10 Aug [...] developed and its performance characteristics determined by [facility]. It has not been cleared or approved by the U.S. Food and Drug Administration. This FISH test does not rule out other chromosome abnormalities. 50 RESULT: Suraj Tariq PhD 51 24 Aug 2012 10:05 Test Performed by: [address] [address] [employer]: Reyes Santos III, M.D. 52 28 Jul [...] developed and its performance characteristics determined by [facility]. It has not been cleared or approved by the U.S. Food and Drug Administration. This FISH test does not rule out other chromosome abnormalities. 56 RESULT: Suraj Ruggiero Jose León PhD 57 31 Jul 2012 09:25 Test Performed by: [address] [address] [employer]: Reyes Santos III, M.D. 58 Because ethnic [...] Kidney failure <15 (or dialysis) 59 A Upozoz-Usmkzh-rqtwmns slide prepared from the flow cytometry specimen [...] developed and its performance characteristics determined by [facility]. It has not been cleared or approved by the U.S. Food and Drug Administration. Test Performed by: [place] [address] [employer]: Reyes Santos III, M.D. 62 --- 07/27/12 [...] as: 5.0 % @ Edited by: Cuauhtemoc Raines @ Reason: Adding manual diff 65 --- [...] 68 @07/27/12 1045: Manual Diff added. RFLXG=DIFF. @04/15/13 1045: Path Review added. RFLXG=PATH. 69 Reference Range and Interpretation: TnI (ng/ml) Interpretation Less Than 0.06 ng/mL Not supportive of diagnosis of NM 0.06 - 0.50 ng/ml Indeterminate: suggest serial studies if clinically indicated. Greater than 0.5 ng/mL Consistent with diagnosis of NM 70 Monospot added per pathologist's request. Verbal to [id number] by [id number] at 0937 on 04/20/12. Results read back accurately. 71 CBC and smear reviewed. Inverted PMN/lymph ratio noted. No blasts seen. A lymphoproliferative disorder cannot be entirely ruled out. Additional studies may be considered. REVIEWED BY SURAJ STANTON MD 72 N 73 Reference Range and Interpretation: TnI (ng/ml) Interpretation Less Than 0.06 ng/mL Not supportive of diagnosis of NM 0.06 - 0.50 ng/ml Indeterminate: suggest serial studies if clinically indicated. Greater than 0.5 ng/mL Consistent with diagnosis of NM 74 Because ethnic data is not always [...] (or dialysis) 75 COLLECTED FROM 06/12/1030 THROUGH 06/13/10 0545. 76 Recent studies consider the lower limit [...] ON SMEAR 80 ---- RUN DATE: 12/27/08 [facility] NMI LIVE PAGE 1 RUN TIME: 1619 Specimen Inquiry RUN USER: INTERFACE -- Name: MARTHA FUENTES [facility]#: [id number] Status: REG REF Re12/26/08 Age/Sex: 58/F Unit#: [id number] Location: [facility]. : 46 -- Specimen: [id number] Spec Date: 12/26/[address]: Gerry santos MD Spec Type: SURGICAL P Received: 12/26/08-6895 Copies to: Wing fall MD SPECIMEN 1) RANDOM COLON BIOPSIES 2) BIOPSY COLON POLYP AT 20 CM. HISTORY POST-OP DIAGNOSIS: Two small polyps removed CLINICAL INFORMATION: Change in bowel habits, diarrhea GROSS DESCRIPTION 1) Specimen received in formalin labelled Martha Fuentes, Random Colon Biopsies and consists of multiple, boston, soft tissue fragments measuring 0.6 x 0.4 x 0.1 cm. Submitted entirely, one cassette. 2) Specimen received in formalin labelled Martha Fuentes, Biopsy Colon Polyps at 20 cm. and [...] 12/27/08 1616 -- -- DEPARTMENT OF PATHOLOGY, [address] [place] [address] [facility] Permit #[id number] Suraj Stanton M.D. Director Pepe Jesus M.D. Recovery Coordinator Dir ken -- 81 FASTING 82 NF^NONFORMED^STFORM 83 Giardia and cryptosporidium antigen testing performed by immunoassay. If patient is immunocompromised or has traveled to or is from a developing country, a full ova and parasite exam with microscopic (OPMIC) is recommended. All samples will be held one month in case full ova and parasite testing is requested. Contact the Microbiology Department at [phone]. N^NEGATIVE BY IMMUNOASSAY^CRY N^NEGATIVE BY IMMUNOASSAY^TIM 84 [...] Procedures Date CPT Code Description Status Comment 06/27/2017 Mammogram Completed 06/27/2016 Mammogram Completed No findings of malignancy, normal suggested follow-up mammogram in one year. 01/30/2016 Bone Mineral Density Test Completed 02/03/2015 79314 Dxa Bone Density Study One Or Completed More Sites Axial Skeleton 03/29/2014 17056 Pulse Oximetry Completed 02/25/2014 Colonoscopy Completed 08/13/2013 24194 Dxa Bone Density Vertebarl FX Completed Assessment 08/13/2013 80090 Dxa Bone Density Study One Or Completed More Sites Axial Skeleton 07/30/2013 Mammogram Completed 04/21/2012 61355 Electrocardiogram Complete Completed 03/12/2012 28993 Pulse Oximetry Completed 05/20/2011 30802 Pulse Oximetry Completed 03/16/2011 83955 Pulse Oximetry Completed 03/20/2010 Mammogram Completed 02/04/2008 Mammogram Completed 06/13/2005 Mammogram Completed Encounters Type Date Location Provider CPT E/M Dx Office Visit 05/09/2017 1:20p [facility] Vicki Neff 31569 K22.70 M.D. Office Visit 03/04/2017 3:40p Main Office Vicki Neff 32820 K21.9 M.DHollie Office Visit 10/08/2016 3:40p [facility] Vicki Neff 31353 E66.3 Jasmina.DHollie R73.01 E78.2 M25.562 Office Visit 07/18/2016 2:40p [facility] Vicki Neff M.D. 13289 E78.2 E66.3 R73.01 K21.9 E55.9 Office Visit 05/08/2016 10:00a Main Office Vicki Neff M.D. 71709 Z00.00 Z12.31 M85.89 E78.2 C85.90 E55.9 Office Visit 01/30/2016 10:40a [facility] Vicki Neff, 41807 W57.xxxA Krysten Z23 S70.371A Office Visit 11/27/2015 10:50a Main Office Vicki Neff M.D. 75919 H25.13 Z01.818 Z12.31 Office Visit 07/05/2015 3:20p Main Office Vicki Neff M.D. 48530 J20.8 M25.562 M25.561 Office Visit 03/13/2015 6:30p Main Office Vicki Neff M.D. 06347 E55.9 R73.01 M81.0 Office Visit 01/12/2015 9:00a [facility] Vicki Neff M.D. 08236 Z00.01 M81.0 C85.90 R73.01 E55.9 E78.5 Z23 Office Visit 11/10/2014 10:30a Main Office Maria Del [place] [address] 386.10 719.41 796.2 Office Visit 03/29/2014 1:45p [facility] Talya DominguezStacy chang-C 40873 465.9 466.0 Office Visit 01/04/2014 9:40a [facility] Vicki Neff M.D. 83566 733.00 202.80 268.9 V04.81 Office Visit 07/07/2013 11:00a [facility] Wing Quijano M.D. 33383 V70.0 272.4 300.00 790.21 733.00 Office Visit 06/21/2013 11:00a Main Office Warren Deluna M.D. 98176 786.50 Office Visit 05/12/2013 9:20a Main Office Warren Deluna M.D. 15127 381.01 Office Visit 02/26/2013 2:00p [facility] Katalina Wasserman Joceline 15962 465.8 Office Visit 01/06/2013 1:00p [facility] Wing Quijano M.D. 39808 465.9 Office Visit 07/17/2012 10:20a [facility] Wing Quijano M.D. 86786 288.60 Office Visit 04/21/2012 2:50p [facility] Wing Quijano M.D. 49907 786.50 300.00 288.60 Office Visit 03/12/2012 8:50a Main Office Wing Quijano M.D. 54794 465.9 Office Visit 12/26/2011 11:15a [facility] Emilie Wise [facility] 38235 386.30 V04.81 924.10 Office Visit 05/20/2011 11:00a Main Office Charanjit Denis M.D. 68720 461.8 462 Office Visit 03/16/2011 11:30a Main Office Katalina WassermanStacy-Susan 25351 466.0 Office Visit 02/14/2011 3:20p [facility] Vicki Neff M.D. 12161 466.0 Office Visit 12/12/2010 2:15p [facility] Emilie Wise [facility] 36009 724.5 Office Visit 08/14/2010 11:20a [facility] Wing Quijano M.D. 32857 466.0 Office Visit 08/11/2010 9:45a Main Office Miguel Ascencio M.D. 22368 462 Office Visit 03/29/2010 9:40a Main Office Wing Quijano M.D. 83502 733.00 381.81 V06.5 v06.5 Office Visit 03/13/2010 5:40p Main Office Mark Gillespie M.D. 75483 V04.81 v04.81 733.00 461.0 Office Visit 11/08/2009 4:15p [facility] Emilie Wise [facility] 24986 729.5 448.1 Office Visit 09/28/2009 6:20p Main Office Wing Quijano M.D. 97721 465.9 Office Visit 11/08/2008 3:10p Main Office Charanjit Denis M.D. 22343 787.91 272.4 Office Visit 10/31/2008 2:20p [facility] Vangie Quintero M.D. 18645 787.91 272.2 Office Visit 05/31/2008 8:40a Main Office Mark Gillespie M.D. 27744 386.11 Office Visit 02/09/2008 3:30p Main Office Castillonp-C 95698 V72.31 272.2 Office Visit 01/26/2008 1:00p Main Office Wing Quijano M.D. 83954 V70.0 V77.91 V76.10 V76.51 V49.81 733.00 V04.81 Plan of Care 06/28/2017 - Vicki Neff M.D.J06.9 Acute upper respiratory infection, unspecifiedComments:flu swab negative.J01.90 Acute sinusitis, unspecifiedNew Medication:Azithromycin 250 mgVentolin HFA 108(90 Base) mcg/ActCheratussin ac 100-10 mg/5MLComments:supportive treatment. saline nasal spray.AllComments:~B_~U _Medication Management~b_~u_ Patient Understands medications she's taking? Yes No Are there Barriers to Adherence? Yes No Has the patient been asked about herbal supplements and therapies, and OTC meds? Yes No
[2017-07-06 07:26] VITALS: BP 188/88
--- NOTE | 2017-07-06 08:20 | RAD ---
INDICATION: 10 days cough, shortness of breath. Former tobacco use. COMPARISON: August 09, 2015 CT. TECHNIQUE: Dual energy PA and routine lateral views of the chest were obtained. REPORT: Elevated lung volumes and both diffuse mild prominence of the interstitial markings and patchy rarefaction of the mid to upper lung zone interstitial markings. No focal pulmonary lesion, compelling alveolar consolidation, pleural effusion, pneumothorax. The heart, pulmonary vasculature, and mediastinal contours are unremarkable. IMPRESSION: Stigmata of obstructive lung disease. No acute pulmonary or cardiac process evident.
--- NOTE | 2017-07-06 09:38 | UC ---
Wesley Swanson Jason, scribed for [facility] MD on 07/06/17 at 0742 . Respiratory Complaint HPI - HPI Summary HPI Summary: In Room Note: This patient is a 67 year old MF presenting to [facility] with a chief complaint of chest tightness since 2 days ago. The patient rates the pain 0/10 in severity. Symptoms aggravated by nothing. Symptoms alleviated by nothing. Patient reports productive cough. The patient denies hx of hypertension and has never used albuterol. Pt includes she is currently taking prednisone. Her PCP is Dr. Neff (family medicine) and she does not take any prescription medications. Due to her present condition she has been using a nebulizer for 2 days and started a z-pack 8 days ago. Physicians Note: Vital signs stable, afebrile. Visit history: non-Hodgkins lymphoma, otherwise noncontributory to present complaint. No known allergies. Blood pressure 188/ 88. Pulse ox 96. Patient is not on anti-hypertensive medication. Nurses Note: Patient states she got sick about 10 days ago. She saw her PCP then and tested negative for flu. She was diagnosed with bronchitis and sinusitis and was given a Z-pack and albuterol inhaler. She states her sinus infection has improved, but her chest symptoms have not. She saw her PCP again this past Friday and was given a nebulizer. She has been doing albuterol nebulizers q4h, but complains her chest is still tight. She also started a prednisone taper on Friday, and has 2 days left. - History of Current Complaint Stated Complaint: RESP COMPLAINT Time Seen by Provider: 07/06/17 07:23 Hx Obtained From: Patient Onset/Duration: Gradual Onset, Lasting Days - since 10 days ago, Still Present Pain Intensity: 0 Pain Scale Used: 0-10 Numeric Aggravating Factors: Nothing Alleviating Factors: Other - Nebulizer and z-pack - Allergies/Home Medications Allergies/Adverse Reactions: Allergies Allergy/AdvReac Type Severity Reaction Status Date / Time No Known Allergies Allergy Verified 07/06/17 07:14 Home Medications: Home Medications Albuterol 2.5MG/3ML (0.083%)* [Ventolin 2.5 MG/3 ML NEB.ANITA*] 2.5 mg INH Q4H [History Confirmed 07/06/17] Melatonin/Pyridoxine HCl (B6) [Melatonin 3 mg Tablet] 3 mg PO DAILY 07/06/17 [ History Confirmed 07/06/17] predniSONE [Prednisone] 5 mg PO DAILY 07/06/17 [History Confirmed 07/06/17] PMH/Surg Hx/FS Hx/Imm Hx Previously Healthy: No Cardiovascular History: Other Other Cardiovascular History: negative CAD Cancer History: Other Other Cancer History: non-hodgkin's lymphoma - Surgical History Surgical History: Yes Surgery Procedure, Year, and Place: tubal, hysterectomy,appendectomy - Family History Known Family History: Positive: Hypertension - in mother and father, Other - Father had COPD. negative cancer. - Social History Alcohol Use: Occasionally Alcohol Amount: 2-3 PER WEEK Substance Use Type: None Smoking Status (MU): Former Smoker Amount Used/How Often: 1/2 PACK A DAY Have You Smoked in the Last Year: No When Did the Patient Quit Smoking/Using Tobacco: 2002 Review of Systems Constitutional: Other - negative fever Respiratory: Cough - productive Cardiovascular: Other - chest tightness All Other Systems Reviewed And Are Negative: Yes Physical Exam - Summary Physical Exam Summary: Appearance: The patient is well-appearing, is in no pain distress, and is well- nourished. Eyes: Conjunctiva are clear. ENT: The hearing is grossly normal, the pharynx is normal, and the TMs are normal. There is no muffled or hoarse voice. Sinuses non-tender. Neck: The neck is supple and there is no lymphadenopathy. Respiratory: The chest is nontender. There are diffuse wheezes, crackles, and rhonchi bilaterally. Cardiovascular: Heart is regular rate and rhythm. There is no murmur. Abdomen: The abdomen is soft and nontender. There is no organomegaly. Bowel sounds: present Musculoskeletal: Strength is intact. The patient moves all extremities. Neurological: The patient is alert. Psychological: The patient displays age appropriate behavior Skin: Negative for rashes Triage Information Reviewed: Yes Vital Signs: Initial Vital Signs Temp 97.7 F 07/06/17 07:17 Pulse 73 07/06/17 07:17 Resp 20 07/06/17 07:17 BP 188/88 07/06/17 07:17 Pulse Ox 96 07/06/17 07:17 Vital Signs Reviewed: Yes UC Diagnostic Evaluation - Laboratory O2 Sat by Pulse Oximetry: 96 - Radiology Radiology Interpretation Completed By: Radiologist - CXR reveals, per radiologist, Stigmata of obstructive lung disease. No acute pulmonary or cardiac process. ED physician has reviewed this radiology report. Respiratory Course/Dx - Course Course Of Treatment: The patient is 67 year old female with lingering chest discomfort and cough. Previously diagnosed with bronchitis and put on a z-pack which she completed 2 days ago. 2 days ago she also started an albuterol nebulizer and Medrol dose pack. She feels somewhat better but not completely better. Her last temperature was 5 days ago. Medications have been included in the original chart and reviewed.Patient has Hypertensive BP reading (188/88); patient referred to PCP within 1 day - 4 weeks for follow up. - Differential Dx/Diagnosis Provider Diagnoses: exacerbation of COPD, resolving. Discharge - Sign-Out/Discharge Documenting (check all that apply): Discharge - Discharge Plan Condition: Stable Disposition: HOME Patient Education Materials: COPD (Chronic Obstructive Pulmonary Disease) (ED) Referrals: Vicki Neff MD [Primary Care Provider] - Additional Instructions: Your blood pressure reading today was 188/88, indicating HYPERTENSION/ PREHYPERTENSION. Follow-up with your primary care provider within 4 weeks for blood pressure readings and further evaluation. WE DISCUSSED: 1. for future reference: right arm, manually: 164/98; Left arm: 142,94. Check BP at least once a week and if you get 3 BP readings about 120/80, follow up with your doctor for further evaluation and treatment. 2. X ray did NOT show pneumonia. Re check for any increased pain, temperature , shortness of breath. 3. Diagnosis is resolving bronchitis. Use inhaler and finish prednisone. 4. Warm moist fluids to chest and orally. PLEASE SEEK CARE AT THE EMERGENCY DEPARTMENT IF SYMPTOMS WORSEN OR IF NEW SYMPTOMS DEVELOP. FOLLOW UP WITH YOUR PRIMARY CARE PHYSICIAN. - Billing Disposition and Condition Condition: STABLE Disposition: HOME The documentation as recorded by the Wesley mendieta Jason accurately reflects the service I personally performed and the decisions made by me, Enoc Tinsley MD.
== END 2017-07-06 09:08 | disposition home or self-care (01) ==
LOC: UCEAST 07:05
DX: J44.1 Chronic obstructive pulmonary disease with (acute) exacerbation (principal); Z85.72 Personal history of non-Hodgkin lymphomas; Z87.891 Personal history of nicotine dependence
CPT/HCPCS: 71046; 99211; G0463

== ENCOUNTER 2017-12-30 12:17 | Inpatient (IN) | payer MEDICARE ==
--- NOTE | 2017-12-21 14:33 | HP ---
HISTORY AND PHYSICAL: DATE OF ADMISSION/SURGERY: 12/30/17 DATE OF OFFICE VISIT: 12/19/17 SURGEON: Gracy Espitia MD * (DICTATED BY MARY CALLAWAY) PROCEDURE: Left total knee arthroplasty. CHIEF COMPLAINT: Left knee pain. HISTORY OF PRESENT ILLNESS: Ms. Fuentes is a 67-year-old female with complaints of left knee pain. She has failed conservative treatment and elected to proceed with a left total knee arthroplasty. PAST MEDICAL HISTORY: Non-Hodgkin's lymphoma, GERD, Price esophagus, and hiatal hernia. PAST SURGICAL HISTORY: Appendectomy and hysterectomy. CURRENT MEDICATIONS: 1. Multivitamin. 2. Calcium. 3. Vitamin D. 4. Fish oil. 5. Ocuvite Adult 50. 6. Omeprazole. ALLERGIES: To TAPE. FAMILY HISTORY: Breast cancer, heart disease, and COPD. SOCIAL HISTORY: She is a 67-year-old female. She lives with a roommate. She is a former smoker, quit 15 years ago. Denies the use of drugs. Uses occasional alcohol. REVIEW OF SYSTEMS: A complete 14-point review of systems was reviewed with the patient. It was positive for GERD. She denies a history of DVT, PE, hepatitis , HIV, or anesthesia problems. PHYSICAL EXAMINATION GENERAL: She is well developed, well nourished, in no acute distress. VITAL SIGNS: She stands 64 inches tall, weighs 165 pounds. Her blood pressure is 116/76, her heart rate is 72. HEENT: Normocephalic, atraumatic. NECK: Supple. No palpable lymph nodes. PULMONARY: The lungs are clear to auscultation bilaterally. CARDIO: Regular rate and rhythm. Strong S1, S2. ABDOMEN: Soft, nontender, nondistended. MUSCULOSKELETAL: Left lower extremity: The skin is intact. There are no open wounds or abrasions. There is a moderate joint effusion. Range of motion is 5 to 125 degrees with patellofemoral crepitus. No varus or valgus instability. 2 + dorsalis pedis pulse, intact sensation in her lower extremity. Muscle group strengths are intact at 5/5. NEUROLOGIC: She is alert and oriented x3. ASSESSMENT AND PLAN: Ms. Fuentes is a 67-year-old female with end-stage osteoarthritis of the left knee. She has failed conservative treatment and elected to proceed with a left total knee arthroplasty, which is scheduled for 12/30/[address] Espitia discussed the risks and benefits of the surgery at today's visit and all of her questions were answered. She will follow up with Dr. Espitia 2 weeks after the surgery. We will use TXA with this patient and she is allergic to NICKEL. MARY CALLAWAY [id number]/[facility] #: [id number] JIGNESH
[~2017-12-30 12:17] MED LIST: Acetaminophen TAB* 325 MG ONE; Acetaminophen TAB* 325 MG PO ONE; Buffered Lidocaine 0.9% SYRIN* 5 ML/SYR SYRINGE INTRADERM ONE; Gabapentin CAP(*) 300 MG ONE; Gabapentin CAP(*) 300 MG PO ONE; Tranexamic Acid 1,000 MG in NS 0.9% 50 ML* (outpatient use) IV SCH; ceFAZolin 2 GM in NS PREMIX(*) 0 GM/0 ML BAG IVPB ONE; celeCOXIB CAP* 100 MG ONE; celeCOXIB CAP* 200 MG PO ONE
[2017-12-30] MEDS ORDERED: Gabapentin CAP(*) 300 MG ONE (12:21)
[2017-12-30] MEDS ORDERED: Acetaminophen TAB* 325 MG ONE (12:21)
[2017-12-30] MEDS ORDERED: celeCOXIB CAP* 100 MG ONE (12:21)
[2017-12-30] MEDS ORDERED: ceFAZolin 2 GM in NS PREMIX(*) 2 GM/100 ML BAG IVPB ONE (12:22)
--- OUTSIDE RECORDS SUMMARY | 2017-12-30 12:24 | XMS REPORT ---
:1950 External Reference #:[id number] Author Organization [employer] Address [address] [place] [address] [place] [address] Phone [phone] Care Team Providers Name Role Phone Vicki Neff MD Primary Care Physician Unavailable Payers Type Date Identification Numbers Payment Subscriber Provider Health Maintenance Effective: Policy Number: Medicare Blue Martha Harry (O) 04/14/2014 [id number] o Group Number: [id number] [address] PayID: [id number] [place] [address] Medigap Part B Effective: 02/13/2012 Policy Number: BS Robles Fuentes [id number] Expires: 11/07/2014 PayID: [id number] [address] [address] [place] [address] Medigap Part B Expires: 04/13/2012 Policy Number: BS Of EBER Fuentes [id number] PayID: [id number] [address] [address] [place] [address] Medigap Part B Expires: 04/14/2014 Policy Number: BS Of EBER Fuentes [id number] PayID: [id number] [address] [address] [place] [address] Problems Date Description Provider Status Onset: 07/26/2010 Osteoporosis Brandon Friedman M.D. Active Note: T=-3.5 lumbar Mar 2010 Onset: 11/04/2016 Localized, primary osteoarthritis Gracy Espitia M.D. Active Onset: 11/22/2014 Disorder of bursa of shoulder Phi Reynolds M.D. Active region Onset: 04/22/2012 Morbid obesity Emmanuel Stauffer M.D. Active Onset: 04/22/2012 Chest pain Emmanuel Stauffer M.D. Active Family History Date Family Member(s) Problem(s) Comments General Heart Disease General Cancer Social History Type Date Description Comments Lives With Roommate Occupation Retired ETOH Use Occasionally consumes alcohol Smoking Patient is a former smoker Exercise Type/Frequency Exercises regularly Allergies, Adverse Reactions, Alerts Date Description Reaction Status Severity Comments 07/26/2010 NKDA active 11/04/2016 Tape active Medications Medication Date Status Form Strength Qnty SIG Indications Ordering Provider Multi Vitamin Active Tablets 30tabs 1 po qd Unknown 000 Calcium Active Tablets 1200 1 po bid Unknown 000 Vitamin D Active Capsules 2000Unit 30caps po qd Unknown 000 Fish Oil Active Capsules 1000mg 1 by mouth Unknown 000 every day Ocuvite Adult Active Capsules 1 by mouth Unknown 50+ 000 every day Omeprazole Active Unknown 000 Fosamax Hx Tablets 70mg 4tabs one tablet Brandon 011 - veronica Friedman M.D. 015 Melatonin Hx Capsules 2.5mg 1 tab by Unknown 000 - mouth 30 min before 018 bedtime Medications Administered in Office Medication Date Status Form Strength Qnty SIG Indications Ordering Provider Synvisc Or Administered Injection Gracy Synvisc-One Azalia Espitia M.D. Injection 1 MG Synvisc Or Administered Injection Gracy Synvisc-One Azalia Espitia M.D. Injection 1 MG Synvisc Or Administered Injection Gracy Synvisc-One Azalia Espitia M.D. Injection 1 MG Depomedrol Administered Injection Gracy 40MG Azalia Espitia M.D. Vital Signs Date Vital Result Comment 12/19/2017 Height 64.5 inches 5'4.50" Weight 165.00 lb BP Systolic 116 mmHg BP Diastolic 76 mmHg Respiratory Rate 15 /min Pain Level 5 BMI (Body Mass Index) 27.9 kg/m2 11/12/2017 Height 64.5 inches 5'4.50" Weight 160.00 lb Heart Rate 72 /min BP Systolic 130 mmHg BP Diastolic 88 mmHg BMI (Body Mass Index) 27.0 kg/m2 01/01/2017 Height 64.5 inches 5'4.50" Weight 160.00 lb Heart Rate 73 /min BP Systolic 120 mmHg BP Diastolic 78 mmHg Body Temperature 97.5 F BMI (Body Mass Index) 27.0 kg/m2 12/25/2016 Height 64.5 inches 5'4.50" Weight 160.00 lb BP Systolic 118 mmHg BP Diastolic 78 mmHg Respiratory Rate 18 /min Pain Level 1 BMI (Body Mass Index) 27.0 kg/m2 12/18/2016 Height 64.5 inches 5'4.50" Weight 160.00 lb BP Systolic 138 mmHg BP Diastolic 72 mmHg Respiratory Rate 18 /min Pain Level 2 BMI (Body Mass Index) 27.0 kg/m2 12/02/2016 Heart Rate 64 /min BP Systolic Sitting 125 mmHg BP Diastolic Sitting 85 mmHg Body Temperature 96.6 F Pain Level 1 11/04/2016 Height 64.5 inches 5'4.50" Weight 160.00 lb Heart Rate 76 /min BP Systolic 153 mmHg BP Diastolic 80 mmHg Respiratory Rate 16 /min BMI (Body Mass Index) 27.0 kg/m2 12/29/2014 Height 64 inches 5'4" Weight 155.00 lb Heart Rate 60 /min BP Systolic Sitting 159 mmHg BP Diastolic Sitting 79 mmHg Pain Level 3 BMI (Body Mass Index) 26.6 kg/m2 11/22/2014 Height 64 inches 5'4" Weight 160.00 lb Heart Rate 66 /min BP Systolic Sitting 141 mmHg BP Diastolic Sitting 100 mmHg Pain Level 2 BMI (Body Mass Index) 27.5 kg/m2 07/26/2010 Height 64 inches 5'4" Weight 146.00 lb Heart Rate 72 /min BP Systolic 130 mmHg BP Diastolic 80 mmHg BMI (Body Mass Index) 25.1 kg/m2 Results Test Date Test Result H/L Range Note CBC Auto Diff 09/02/2017 White Blood Count 10.1 10^3/uL 3.5-10.8 Red Blood Count 4.65 10^6/uL 4.0-5.4 Hemoglobin 13.1 g/dL 12.0-16.0 Hematocrit 39 % 35-47 Mean Corpuscular Volume 84 fL 80-97 Mean Corpuscular Hemoglobin 28 pg 27-31 Mean Corpuscular HGB Conc 34 g/dL 31-36 Red Cell Distribution Width 15 % 10.5-15 Platelet Count 196 10^3/uL 150-450 Mean Platelet Volume 9.3 um3 7.4-10.4 Abs Lymphocytes 5.3 10^3/uL High 1.0-4.8 Abs Neutrophils 3.9 10^3/uL 1.5-7.7 Abs Monocytes 0.7 10^3/uL 0-0.8 Abs Eosinophils 0.2 10^3/uL 0-0.6 Abs Basophils 0.1 10^3/uL 0-0.2 Manual Differential 09/02/2017 Neutrophil % 45 % 38-83 Lymphocytes % 35 % 25-47 Monocytes % 2 % 0-7 Eosinophils % 1 % 0-6 Basophil % 1 % 0-2 Variant Lymph % 16 % High 0-6 Abs Neutrophils 4.5 10^3/uL 1.5-7.7 Abs Lymphocytes 3.5 10^3/uL 1.0-4.8 Abs Monocytes 0.2 10^3/uL 0-0.8 Abs Eosinophils 0.1 10^3/uL 0-0.6 Abs Basophils 0.1 10^3/uL 0-0.2 RBC Morphology Normal Normal Laboratory test finding 09/02/2017 Pathologist Review (SEE NOTE) 1 1 Mild absolute lymphocytosis. If persistent, recommend correlation with flow cytometry to exclude a low-grade lymphoproliferative disorder. Reviewed by Mary Jane Teague MD Procedures Date CPT Code Description Status 05/06/2017 16279 Endoscopy Upper GI Biopsy Completed 01/01/201796937 Inject/Drain Joint/Bursa Major W/O US Completed 12/25/201683206 Inject/Drain Joint/Bursa Major W/O US Completed 12/18/201619765 Inject/Drain Joint/Bursa Major W/O US Completed 11/04/201668469 Inject/Drain Joint/Bursa Major W/O US Completed 04/22/2012 99259 ECHO Stress Test Incl Perf Contiuous ekg Monitoring Completed W/Phys Superv 04/22/2012 44287 ECHO Stress Test Incl Perf Contiuous ekg Monitoring Completed W/Phys Superv Encounters Type Date Location Provider CPT E/M Dx Office Visit 11/12/2017 [facility] Gracy Espitia M.D. 75278 M25.562 8:30a [facility] M17.0 M25.462 M17.12 Office Visit 12/02/2016 8:30a [facility] Gracy Espitia M.D. 19909 M25.562 Susan.Florencio M25.462 M25.561 M17.0 Office Visit 11/04/2016 9:00a [facility] Gracy Espitia M.D. 22784 M25.562 C.Florencio M25.462 M17.12 Office Visit 12/29/2014 10:30a [facility] Elena Ferguson, 74197 923.20 Of [facility] Office Visit 11/22/2014 10:30a [facility] Phi Reynolds M.D. 11025 726.10 [facility] Office Visit 04/22/2012 2:30p [facility] Emmanuel Stauffer, 29523 786.50 MTangela 278.01 Office Visit 07/26/2010 2:00p [facility] Brandon Friedman, 61105 733.00 Of [facility] Plan of Care Future Appointment(s):01/19/2018 2:00 pm - Gracy Espitia M.D. at [facility]12/30/2017 3:30 pm - MARY Delgado at [facility]12/30/2017 3:30 pm - MARY Lawrence at [facility]12/30/2017 3:30 pm - Gracy Espitia M.D. at [facility]12/19/2017 - Gracy Espitia M.D.M25.562 Pain in left kneeFollow up:Follow up: 2 weeks after ndmhfyyV34.0 Bilateral primary osteoarthritis of knee
--- OUTSIDE RECORDS SUMMARY | 2017-12-30 12:25 | XMS REPORT ---
:1950 External Reference #:[id number] Author Organization [facility] Address [address] [place] [address] Phone [phone] Care Team Providers Name Role Phone Vicki Neff Care Team Information Spring Encaser Unavailable Vicki Neff Primary Care Physician Unavailable Payers Type Date Identification Numbers Payment Provider Subscriber Commercial Effective: Policy Number: Medicare Blue Ppo Martha Fuentes 2015 [id number] Group Number: [id number] [address] [address] Group Name: [place] [address] PayID: [id number] Problems Date Description Provider Status Onset: 03/04/2011 [...] Comments Father age 90 CHF. COPD. HTN. 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 Mother 94. hip fracture. ARthritis, HTN. First Son suicided age 40. First Daughter pituitary tumor removed, diabetes insipidus mostly resolved. 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 in [place]. Paternal Grandmother Breast Cancer Paternal. Paternal Uncles [place] age 50's father's brother. 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 Cigarette Use Former Cigarette Smoker from age 23 to 53, 1/2 pk per day quit 2002. ETOH Use Denies alcohol use stopped all wine in May dt hiatal hernia. drinks 2 beers a week. Smoking Patient is a former [...] 07/02 Active Misc 1unit w/ tubing Vicki LHollie /2017 s kits - dx: jonh Neff/w Krysten heezing Ocuvite 01/04 Active Tablets 1 po qd /2013 [facility] Calcium 03/29 Active Tablets 1250mg 90tab one tab po M81.0 Wing Georges /2009 s daily Krysten Quijano Multi-Vitamin Active Tablets 1 PO qd Unknown Omeprazole Active Capsules 20mg 1 by mouth Unknown /0000 DR every day Vitamin D High 00 Active Capsules 1000Unit 2000 units Unknown Potency /0000 every day Xopenex 07/02 Hx Nebulizer 0.63mg/3M 72ml 1 vial by Vicki L. L nebulizer Aishwarya, - 1-6 times a M.D. 12/17 day needed, up to 6 times daily Albuterol 07/02 Hx Nebulizer (2.5mg/3M 75ml use 1 vial Vicki LHollie Sulfate L) 0.083% via Aishwarya, - nebulizer M.D. 12/17 every - hours as needed for shortness of breath /wheezing Medrol 07/02 Hx TBPK 4mg 1unit use as Vicki L. s directed Aishwarya, - M.D. 12/17 Azithromycin 06/28 Hx Tablets 250mg 6tabs 2 by mouth J01.90 Vicki L. today. 1 by Aishwarya, - mouth daily M.D. 12/17 x Ventolin HFA 06/28 Hx Aerosol 108(90Bas 18uni 2 puffs J01.90 Vicki L. e) ts every 4 Aishwarya, - mcg/Act hours as M.D. 12/17 needed Cheratussin ac 06/28 Hx Solution 100-10mg/ 100ml 5 -10 J01.90 Vicki L. 5ML milliliters Aishwarya, - by mouth at M.D. 12/17 night for cough Ranitidine HCL 03/04 Hx Capsules 300mg 90cap 1 by mouth K21.9 Vicki L. /2016 s at night. Aishwarya - M.D. 03/13 Ranitidine HCL 07/18 Hx Capsules 300mg 90cap 1 by mouth K21.9 Vicki L. /2016 s at night. Aishwarya - M.D. 03/03 Doxycycline 01/29 Hx Tablets 100mg 2tabs 2 pills by W57.xxxA Vicki LHollie Hyclate /2015 mouth at the Aishwarya, - same time. M.D. 05/08 Physical 07/04 Hx evaluate and M25.562 Vicki LHollie Therapy /2015 treat mike Aishwarya, - knee pain. M.D. 11/26 Vitamin D 01/20 Hx Capsules [id number] 12cap take 1 Vicki Cunningham (Ergocalcifero s capsule by ildefonso Neff) - mouth once M.D. 11/26 weekly for 12 weeks. Meclizine HCL 11/10 Hx Tablets 25mg 30tab take 1 386.10 s tablet three Brown, [employer] - times a day 11/26 if needed for dizziness Physical 11/10 Hx evaluate and 719.41 Maria Del Carmen Therapy treat right Brown, [employer] - shoulder 03/13 pain Guaiatussin ac 03/29 [...] 250mg 6tabs 2 by mouth 465.9 Talya today and 1 Angelicaorf, - by mouth x 4 Afnp-C 11/10 days Azithromycin 05/20 Hx Tablets 250mg 6tabs 2 po today 461.8 Charanjit T. /2011 and 1 po x 4 Midura, - days M.D. 12/25 Robitussin A-C 05/20 Hx 120ml 1-2 tsp po 461.8 Charanjit T. /2011 q4h prn Midura, - cough M.D. 12/25 Azithromycin 03/16 Hx Tablets 250mg 6tabs 2 tabs 466.0 Katalina today; then Lisy, - one tab qd x Afnp-C 03/21 4 more days /2010 Meclizine HCL 03/16 Hx Tablets 12.5mg 20tab take 1-2 bid 466.0 Katalina s prn for Lisy, - dizziness Afnp-C 05/20 Amoxicillin/Cl 02/14 Hx Tablets 875-125mg 20tab 1 po bid 466.0 Vicki Cunningham avulanate /2010 s with Kiara Neff - carlos Bashir 03/16 and yogurt. /2010 Acetaminophen/ 02/14 Hx Tablets 300-30mg 20tab 1-2 po at 466.0 Vicki Cunninghma Codeine #3 /2010 s hs. Henry Neff M.D. 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 avulanate s 10 days Kiara Gillespie M.D. 03/22 Metronidazole 11/08 Hx Tablets 500mg 21tab 1 po tid Charanjit T. s Henry Denis M.D. 09/28 Cipro 11/04 Hx Tablets 500mg 10tab 1 po bid for Vangie M. /2008 s 5 days Henry Quintero M.D. 11/08 Antivert 05/31 Hx Tablets 12.5mg 20tab 1-2 po tid Mark F. /2008 s prn Henry Gillespie M.D. 09/28 Zocor 02/08 Hx Tablets 10mg 90tab 1 po q hs 272.2 Katalina s Lisy - Afnp-C 10/31 Actonel 01/27 Hx Tablets [...] CPT Code Status Date Vaccine Lot # [id number] Given 12/17/2017 Influenza vac quadrivalent preservative free [id number] 3yrs and up 67094 Given 02/25/2017 High-Dose, Influenza Virus Vacccine-fluzone 65 [id number] and older 38774 Given 01/30/2016 Influenza Vac, Quadrivalent, Slit Virus, Im [id number] 88054 Given 01/12/2015 Pneumococcal Conjugate Vacc-13 [id number] 19544 Given 01/12/2015 High-Dose, Influenza Virus Vacccine-fluzone 65 [id number] and older 58716 Given 01/04/2014 High-Dose, Influenza Virus Vacccine-fluzone 65 [id number] and older 15974 Given 02/03/2013 Pneumococcal Immunization [id number] 12483 Given 02/03/2013 High-Dose, Influenza Virus Vacccine-fluzone 65 [id number] and older 80055 Given 12/26/2011 DO Not Use Split Influenza Virus Vaccine [id number] 25444 Given 10/24/2011 Zostivax [id number] 87885 Given 03/29/2010 Tdap Tetanus, W Pertussis [id number] 20069 Given 03/13/2010 DO Not Use Split Influenza Virus Vaccine [id number] 84175 Given 03/18/2009 DO Not Use Split Influenza Virus Vaccine [id number] 71517 Given 01/26/2008 DO Not Use Split Influenza Virus Vaccine [id number] Vital Signs Date Vital Result Comment 12/17/2017 BP Systolic 124 mmHg BP Diastolic 78 mmHg Heart Rate 68 /min Body Temperature 97.7 F Respiratory Rate 16 /min Height 64.5 inches 5'4.50" Weight 169.38 lb BMI (Body Mass Index) 28.6 kg/m2 07/02/2017 BP Systolic 134 mmHg BP Diastolic [...] Date Test Result H/L Range Note CBC Electronic (Fma New) 12/17/2017 WBC 9.92 4.0-10.0 RBC 4.44 3.93-6.0 Hemoglobin (Fma/CMC/CTX) 12.4 g/dL 12.0-17.0 Hematocrit (Fma/CMC/CTX) 36.9 % 35.0-50.0 Mean Corpuscular Vol 83.1 fL 80-95 Mean Corpuscular Hemoglobin 27.9 pg 25.6-32.2 Mean Corpuscular Hemo Concen 33.6 g/dL 32.2-36.0 Platelets 189 10^3/ul 163-400 RDW-CV 14.3 11.6-14.4 Mean Platelet Volume 11.3 fL 8.0-12.4 Absolute Neutrophils BLD 4.28 1.56-6.13 Absolute Lymphocytes 4.71 High 1.18-3.74 Absolute Monocytes BLD Auto 0.73 0.24-0.82 Absolute Eos Blood 0.14 0.04-0.54 Absolute Basophils 0.04 0.01-0.08 Neutrophil % 43.1 % 34.0-70.0 Lymph% 47.5 % 20.0-52.0 Monocytes % 7.4 % 5.0-12.0 Eos % 1.4 % 0.7-7.0 Basophil% 0.4 % 0-1.2 Laboratory test finding 12/17/2017 Inr (Fma) 0.9 0.9-1.1 Ua - Micro (Fma) 12/17/2017 Appearance clear Color yellow Glucose, Urine (Fma/CMC/CTX) neg Bilirubin neg Ketones neg SP Grav 1.025 Blood trace-intact PH 6.0 Protein neg Urobil 0.2 Nitrite neg Leukocytes (Fma/CMC/Centrex) trace Hyaline <pending> /Lpf Granular <pending> /Lpf WBC (Fma,Centrex) <pending> RBC <pending> Mucus (Fma/CBC/Centrex) <pending> /Lpf Epith <pending> /Lpf Bacteria <pending> /Hpf Amorphous (Fma/CMC/Centrex) <pending> /Lpf Crystals, Fluid (Fma/CMC/CTX) <pending> Z#Comments <pending> CBC Auto Diff 09/02/2017 White Blood Count [...] finding 09/02/2017 Pathologist Review (SEE NOTE) 1 Influenza A&B-fma 06/28/2017 Influenza A negative Influenza B negative Laboratory test 05/06/2017 Surgical Interface SEE RESULT BELOW 2, 3 finding Order Laboratory test 05/06/2017 Clotest SEE RESULT BELOW 4 finding Laboratory test 09/03/2016 Pathologist Review (SEE NOTE) 5 finding Manual Differential 09/03/2016 Neutrophil % 37 % Low 38-83 Lymphocytes % 45 % 25-47 Monocytes % 8 % 0-13 Eosinophils % 2 % 0-6 Basophil % 1 % 0-2 Reactive Lymph % 7 % High 0-6 RBC Morphology Normal Normal CBC Auto Diff 09/03/2016 White Blood Count [...] 10^3/uL 0-0.2 Abs Nucleated RBC 0.01 10^3/uL Lipid Profile 07/09/2016 Cholesterol 270 mg/dL High [...] 4.3 x10^3/UL 1.5-7.2 Lymph# 4.4 x10^3/UL 0.7-4.9 Tama# 0.3 x10^3/UL 0.1-0.9 Gran % 47.0 % 42.2-75.2 Lymph % 49.1 % 20.5-51.1 Tama% 3.9 % 1.7-9.3 Comprehensive Metabolic Prof 05/09/2016 Sodium 142 mEq/L 134-149 Potassium 4.6 mEq/L 3.6-5.5 Chloride 106 mEq/L 94-112 Carbon Dioxide 25 mEq/L 21-32 Glucose 116 mg/dL High 70-105 6 BUN 15 mg/dL 6-26 Creatinine 0.6 mg/dL [...] 4.0 x10^3/UL 1.5-7.2 Lymph# 4.8 x10^3/UL 0.7-4.9 Tama# 0.4 x10^3/UL 0.1-0.9 Gran % 43.2 % 42.2-75.2 Lymph % 51.1 % 20.5-51.1 Tama% 4.7 % 1.7-9.3 Comprehensive Metabolic Prof 02/27/2016 [...] Blot, Serum 02/27/2016 IgG P93 Ab. Absent 7 IgG P66 Ab. Absent 7 IgG P58 Ab. Absent 7 IgG P45 Ab. Absent 7 IgG P41 Ab. Absent 7 IgG P39 Ab. Absent 7 IgG P30 Ab. Absent 7 IgG P28 Ab. Absent 7 IgG P23 Ab. Absent 7 IgG P18 Ab. Absent 7 Lyme IgG WB Interp. Negative 7, 8 IgM P41 Ab. Absent 7 IgM P39 Ab. Absent 7 IgM P23 Ab. Absent 7 Lyme IgM WB Interp. Negative 7, 9 Laboratory test finding 02/27/2016 Sedimentation Rate 12 [...] Reactive Lymph % 17 % High 0-6 10 RBC Morphology Normal Normal Laboratory test finding 10/09/2015 Pathologist Review (SEE NOTE) 11 CBC Auto Diff 04/17/2015 White Blood Count [...] Reactive Lymph % 22 % High 0-6 12 RBC Morphology Normal Normal Laboratory test finding 04/17/2015 Pathologist Review (SEE NOTE) 13 Leukemia/Lymphoma Phenot 04/17/2015 Path Interpretation 2-8 Marker TNP Path Interpret > 16 Marker TNP Path Interpret 9-15 Marker (SEE NOTE) 14 Laboratory test finding 01/16/2015 Vitamin D25 34 [...] x10^3/UL 1.5-7.2 Lymph# 5.5 x10^3/UL High 0.7-4.9 Tama# 0.5 x10^3/UL 0.1-0.9 Gran % 37.1 % Low 42.2-75.2 Lymph % 57.5 % High 20.5-51.1 Tama% 5.4 % 1.7-9.3 Comprehensive Metabolic Prof 01/16/2015 Sodium 140 mEq/L 134-149 Potassium 4.1 mEq/L 3.6-5.5 Chloride 103 mEq/L 94-112 Carbon Dioxide 25 mEq/L 21-32 Glucose 123 mg/dL High 70-105 15 BUN 15 mg/dL 6-26 Creatinine 0.6 mg/dL [...] A 08/02/2014 Rapid Strep A (SEE NOTE) 16 Laboratory test finding 08/02/2014 Throat Beta Strep (SEE NOTE) 17 Culture CBC Auto Diff 04/19/2014 White Blood [...] Count 01/04/2014 WBC 11.4 x10^3/UL High 3.6-9.6 18 RBC 4.89 x10^6/UL 3.90-5.70 HGB 13.9 g/dL 12.1-17.2 HCT 43 % 36-50 MCV 88.0 fL 82.2-97.4 MCH 28.5 pg 27.6-33.3 MCHC 32.5 g/dL Low 33.0-35.5 RDW 12.9 % 11.6-13.7 PLT 217 x10^3/UL 150-400 MPV 8.8 fL 7.4-10.4 Gran # 4.9 x10^3/UL 1.5-7.2 Lymph# 5.7 x10^3/UL High 0.7-4.9 Tama# 0.8 x10^3/UL 0.1-0.9 Gran % 42.6 % 42.2-75.2 Lymph % 50.2 % 20.5-51.1 Tama% 7.2 % 1.7-9.3 CBC Auto Diff 09/30/2013 [...] Reactive Lymph % 18 % High 0-6 19 RBC Morphology Normal Normal Laboratory test finding 09/30/2013 Monospot Negative Negative 20 Ua - Non Micro (Fma) 06/30/2013 Appearance CLEAR Color YELLOW Glucose NEGATIVE Bilirubin NEGATIVE Ketones NEGATIVE SP Grav 1.015 Blood NEGATIVE PH 6.5 Protein NEGATIVE Urobil 0.2 Nitrite NEGATIVE Leukocytes (Fma/CMC/Centrex) NEGATIVE Comprehensive Metabolic Prof 06/30/2013 Sodium 140 mEq/L 134-149 Potassium 4.9 mEq/L 3.6-5.5 Chloride 100 mEq/L 94-112 Carbon Dioxide 24 mEq/L 21-32 Glucose 108 mg/dL High 70-105 21 BUN 20 mg/dL 6-26 Creatinine 0.8 mg/dL [...] x10^3/UL 1.5-7.2 Lymph# 6.3 x10^3/UL High 0.7-4.9 Tama# 0.5 x10^3/UL 0.1-0.9 Gran % 34.6 % Low 42.2-75.2 Lymph % 59.9 % High 20.5-51.1 Tama% 5.5 % 1.7-9.3 Oncology CBC Auto Diff [...] Specimen Bone Marrow BM Chromosome Specimen Id [id number] BM Chromosome Order Date 04 Aug 2012 14:1 <SEE NOTE> 22 BM Referral Reason lymphoma BM Chromosome Method See Comment 23 BM Chromo Banding Method See Comment 24 BM Cromosome Results 46,XX[20] BM Chromosome Interpretation See Comment 25 BM Chromosome Mgmt Analyst See Comment 26 BM Chromosome Report Date 10 Aug 2012 15:4 <SEE NOTE> 27 Leukemia/Lymphoma Flow 08/03/2012 LCMS Microscopic Description See Comment 28 LCMS Special Studies See Comment 29 LCMS Final Diagnosis See Comment 30 Manual Differential 08/03/2012 Neutrophil % 36 % Low 38-83 Band % 1 % 0-8 Lymphocytes % 54 % High 25-47 Monocytes % 4 % 0-13 Eosinophils % 1 % 0-6 Basophil % 1 % 0-2 Reactive Lymph % 3 % 0-6 RBC Morphology Normal Normal Bone Marrow Chromosomes 08/03/2012 BM Chromosome Specimen Bone Marrow BM Chromosome Specimen Id [id number] BM Chromosome Order Date 04 Aug 2012 14:1 <SEE NOTE> 31 BM Referral Reason lymphoma BM Chromosome Method See Comment 32 BM Chromo Banding Method See Comment 33 BM Cromosome Results 46,XX[20] BM Chromosome Interpretation See Comment 34 BM Chromosome Mgmt Analyst See Comment 35 BM Chromosome Report Date 10 Aug 2012 15:4 <SEE NOTE> 36 Leukemia/Lymphoma Flow 08/03/2012 LCMS Microscopic Description See Comment 37 LCMS Special Studies See Comment 38 LCMS Final Diagnosis See Comment 39 Chronic Lymphocytic Leukemia 08/03/2012 FCLL Specimen Bone Marrow FCLL Specimen Id [id number] FCLL Order Date 04 Aug 2012 13:2 <SEE NOTE> 40 FCLL Reason for Referral See Comment 41 FCLL Method See Comment 42 FCLL Result See Comment 43 FCLL Interpretation See Comment 44 FCLL Mgmt Analyst See Comment 45 FCLL Release Date 07 Aug 2012 10:1 <SEE NOTE> 46 B-Cell Lymphoma, Fish 08/03/2012 FBLP Specimen Bone Marrow FBLP Specimen Id [id number] FBLP Order Date 10 Aug 2012 14:2 <SEE NOTE> 47 FBLP Reason for Referral lymphoma FBLP Method See Comment 48 FBLP Result See Comment 49 FBLP Interpretation See Comment 50 FBLP Mgmt Analyst See Comment 51 FBLP Release Date 24 Aug 2012 10:0 <SEE NOTE> 52 Oncology CBC Auto Diff 08/03/2012 White Blood [...] (Fish) Specimen Blood BCR/abl (Fish) Specimen Id [id number] BCR/abl (Fish) Order Date 28 Jul 2012 13:0 <SEE NOTE> 53 BCR/abl (Fish) Referral Reason leukocytosis BCR/abl (Fish) Method See Comment 54 BCR/abl Results See Comment 55 BCR/abl (Fish) Interpretation See Comment 56 BCR/abl (Fish) Mgmt Analyst See Comment 57 BCR/abl (Fish) Report Date 31 Jul 2012 09:2 <SEE NOTE> 58 Manual Differential 07/27/2012 Neutrophil % 26 % [...] Egfr Non- 84.2 >60 Egfr 108.3 >60 59 Leukemia/Lymphoma Flow 07/27/2012 LCMS Microscopic Description See Comment 60 LCMS Special Studies See Comment 61 LCMS Final Diagnosis See Comment 62 Oncology CBC Auto Diff 07/27/2012 White Blood [...] 0-0.2 Granulocyte % (SEE NOTE) % 38-83 63 Lymphocyte % (SEE NOTE) % 25-47 64 Monocyte % (SEE NOTE) % 1-9 65 Eosinophil % (SEE NOTE) % 0-6 66 Basophil % (SEE NOTE) % 0-2 67 Laboratory test finding 07/27/2012 Pathologist Review (SEE NOTE) 68 Erythrocyte Sed Rate 22 mm/Hr 0-30 69 CBC Electronic (Fma) 07/10/2012 WBC 13.0 High [...] finding 04/20/2012 Troponin I 0 ng/mL 0-0.06 70 CBC Auto Diff 04/20/2012 White Blood Count [...] Reactive Lymph % 42.0 % High 0-6 71 Metamyelocytes % 0 % 0-2 Myelocytes % 0 % 0-1 Promyelocytes % 0 % Blast % 0 % RBC Morphology Normal Normal Laboratory test finding 04/20/2012 Pathologist Review (SEE NOTE) 72 Monospot Negative Negative 73 Laboratory test finding 04/20/2012 Troponin I 0 ng/mL 0-0.06 74 Comp Metabolic Panel 04/20/2012 Sodium 136 mmol/L [...] Egfr Non- 84.2 >60 Egfr 108.3 >60 75 Calcium 24HR Urine 06/13/2010 Calcium Random Urine 17.3 mg/dL 76 Urine Calcium/24HR 233.5 MG/24HR 50-400 76 Hours Of Collection 24 HR 24- 76 Urine Volume Measurement 1350 ML 76 Laboratory test 03/30/2010 N-Telopeptide Serum 11.7 nmolBCE/L 6.2-19.0 finding Laboratory test 03/29/2010 Vitamin D, 25 Oh 20.9 ng/mL Low 32.0-100.0 77 finding C Telopeptide, Serum 438 pg/mL 78 N-Telopeptide Urine Cancelled Test SEE COMMENT 79 CBCM-a 09/28/2009 WBC 13.7 High 3.6-9.6 RBC [...] Monocyte 1 Eosinophils 1 Comment SEE COMMENT 80 Laboratory test 09/28/2009 Monospot (Fma/Centrex) NEGATIVE finding Surgical Pathology 12/26/2008 Surgical Pathology 81 <SEE NOTE> Hepatic 11/04/2008 Albumin 4.4 g/dL 3.8-5.5 82 Alk. Phos. 57 U/L 30-110 82 Alt (SGPT) 15 U/L 7-35 82 Ast (Sgot) 20 U/L 5-34 82 Total Bilirubin 0.3 mg/dL 0.2-1.3 82 Total Protein 6.6 g/dL 6.3-8.1 82 Direct Bilirubin 0.1 mg/dL 0.0-0.6 82 Globulin 2.2 g/dL 2.0-4.8 82 A/G Ratio 2.0 Calc 0.6-2.2 82 Indirect Bilirubin 0.18 0.10-1.00 82 Lipid Profile 11/04/2008 Cholesterol 196 mg/dL 120-200 82 HDL 48 mg/dL 30-85 82 Triglycerides 85 mg/dL 30-200 82 HDL Risk Factor 4.1 CALC Low 4.2-7.0 82 LDL (Calculated) 131 CALC High 0-129 82 VLDL (Calculated) 17 mg/dL 0-50 82 Stool Specimen 11/01/2008 Stool Specimen S^SOFT^STCON 83 Description Description Stool For Blood 11/01/2008 Stool For Blood NEGATIVE Negative Stool Color BROWN Stool Form NONFORMED Stool Consistency SOFT Stool For Polys 11/01/2008 Stool For WBCS NONE DETECTED Negative (Polys) Laboratory test 11/01/2008 O P: Giardia/Crypto Giardia and cryp 84 finding Screen <SEE NOTE> Campylobacter Culture NF 85 Stool Cult Sensitivity NF 86 Shiga Toxin 1 And 2 (Ehec) N^NEGATIVE BY IM <SEE NOTE> 87 Ua - Micro (Fma) 02/09/2008 Appearance CLEAR [...] Protein NEG Urobil 0.2 Nitrite NEG Leukocytes ([facility]/Centrex) NEG Comprehensive Metabolic Prof 01/26/2008 Albumin 4.3 g/dL 3.8-5.5 82 Alk. Phos. 50 U/L 30-110 82 Alt (SGPT) 16 U/L 7-35 82 Ast (Sgot) 17 U/L 5-34 82 BUN 15 mg/dL 6-26 82 Calcium 9.4 mg/dL 8.6-10.2 82 Chloride 97 mEq/L 94-112 82 Creatinine 0.9 mg/dL 0.6-1.4 82 Carbon Dioxide 27 mEq/L 21-32 82 Glucose 90 mg/dL 70-105 82 Sodium 138 mEq/L 134-149 82 Total Bilirubin 0.3 mg/dL 0.2-1.3 82 Total Protein 7.1 g/dL 6.3-8.1 82 Potassium 3.9 mEq/L 3.6-5.5 82 Globulin 2.9 g/dL 2.0-4.8 82 A/G Ratio 1.5 Calc 0.6-2.2 82 BUN/Creat Ratio 16.9 Calc 8.0-36.0 82 Lipid Profile 01/26/2008 Cholesterol 257 mg/dL High 120-200 82 HDL 41 mg/dL 30-85 82 Triglycerides 215 mg/dL High 30-200 82 HDL Risk Factor 6.2 CALC 4.2-7.0 82 LDL (Calculated) 172 CALC High 0-129 82 VLDL (Calculated) 43 mg/dL 0-50 82 Complete Blood Count 01/26/2008 WBC 12.9 x10^3/u High 3.6-9.6 82 Gran# 5.1 x10^3/u 1.5-7.2 82 Gran% 39.6 % Low 42.2-75.2 82 HCT 37 % 36-50 82 HGB 12.5 g/dL 12.1-17.2 82 Lymph# 7.3 x10^3/u High 0.7-4.9 82 Lymph% 56.7 % High 20.5-51.1 82 MCH 28.3 pg 27.6-33.3 82 MCV 83.0 fL 82.2-97.4 82 MCHC 34.1 g/dL 33.0-35.5 82 Mo# 0.5 x10^3/u 0.1-0.9 82 Mo% 3.7 % 1.7-9.3 82 MPV 9.9 fL 7.4-10.4 82 PLT 234 x10^3/u 150-400 82 RBC 4.41 x10^6/u 3.90-5.70 82 RDW 13.2 % 11.6-13.7 82 1 Mild absolute lymphocytosis. If persistent, recommend correlation with flow cytometry to exclude a low-grade lymphoproliferative disorder. Reviewed by Mary Jane Teague MD 2 [id number] SEE RESULT BELOW Name: GINAMARTHA G : [address]: Kelin Waters DO Acct: [id number] Unit: [id number] AGE: 67 Location: [facility] Re05/06/17 SEX: F Status: DEP REF SPEC: [id number] MATILDE: 05/06/17- [facility] DR: Kelin Waters DO REQ: [id number] RECD: 05/06/17 STATUS: IMAN GAVIN DR: Vicki Neff MD _ ORDERED: LEVEL 4/3 COMMENTS: [id number] FINAL DIAGNOSIS 1. Small bowel, duodenum, biopsy: [...] performed at Main Lab DEPARTMENT OF PATHOLOGY, [address] [place] [address] Suraj Stanton M.D. Director [facility] # [id number] RUN DATE: 05/08/17 [facility] LAB LIVE PAGE 2 Patient: MARTHA FUENTES [id number] (Continued) GROSS DESCRIPTION (Continued) GROSS DESCRIPTION 1. [...] performed at Main Lab DEPARTMENT OF PATHOLOGY, [address] [place] [address] Suraj Stanton M.D. Director [facility] # [id number] 4 SEE RESULT BELOW Name: MARTHA FUENTES : [address]: Kelin Waters DO Acct: [id number] Unit: [id number] AGE: 67 Location: [facility] Re/23/18 SEX: F Status: DEP REF SPEC: [id number] MATILDE: 05/06/17 [facility] [address]: Kelin Waters DO REQ: [id number] RECD: 05/06/17 STATUS: LUIS GAVIN DR: Vicki Neff MD _ SOURCE: GAS ANTRUM SPDESC: ORDERED: Clotest Procedure Result Reported Site Clotest Final 05/07/17- 07 ML Clotest Negative * ML - MAIN LAB ([facility]) . END OF REPORT * ML=Testing performed at Main Lab DEPARTMENT OF PATHOLOGY, [address] [place] [id number] Suraj Stanton M.D. Director [facility] # [id number] 5 Persistent findings compatible with the patient's known low-grade lymphoproliferative disorder. Reviewed by Dr. Stanton 6 consistent w/ previous results 7 1 sst 8 Positive: 5 of the following Borrelia-specific bands: 18,23,28,30,39,41,45,58, 66, and 93. Negative: No bands or banding patterns which do not meet positive criteria. 9 Note: An equivocal or positive EIA result [...] are those recommended by CDC/ASTPHLD. p23=Osp C, p26=tnpoiusjf Note: Sera from individuals with the following may cross react in the Lyme Western Blot assays: other spirochetal diseases (periodontal disease, leptospirosis, relapsing fever, yaws, and pinta); connective autoimmune (Rheumatoid Arthritis and Systemic Lupus Erythematosus and also individuals with Antinuclear Antibody); other infections ([place] Spotted Fever; Charlie-Woo Virus, and Cytomegalovirus). 10 Monospot added per pathologist's request. 11 Mild absolute lymphocytosis, favor reactive. Additional studies may be considered to rule out lymphoproliferative disorder as clinically warranted. 12 Monospot added per pathologist's request. 13 Leukocytosis with mild absolute lymphocytosis. Reviewed by Dr. Stanton 14 FINAL DIAGNOSIS: Specimen Source: Peripheral blood Flow [...] Jane Teague MD Technical component performed by: [place] [address] Sheet Music Salesperson: Sridhar De Los Santos II, MD, PhD. 15 consistent w/ previous results 16 RUN DATE: 08/02/14 [facility] LAB LIVE PAGE 1 RUN TIME: [address] [place] [address] Specimen Inquiry Name: MATRHA FUENTES : [address]: Shelly Barros MD Acct: [id number] Unit: [id number] AGE: 64 Location: [facility] Re08/02/14 SEX: F Status: REG REF SPEC: [id number] MATILDE: 08/02/14-[address]: Esme Rudd PA-C REQ: [id number] RECD: 08/02/14 STATUS: LUIS GAVIN DR: Shelly Neff MD _ SOURCE: THROAT SPDESC: ORDERED: Rapid Strep A Procedure Result Verified Site Rapid Strep A Final 08/02/14- 1544 ML Organism 1 Negative Strep Group A Antigen testing by enzyme immunoassay. The biological scientist and regulatory agencies both recommend that a throat culture for beta strep be performed if a Rapid Group A Strep assay yields a negative result. Therefore a culture will be automatically performed on all negative samples. * ML - [facility] ([facility]) . END OF REPORT * ML=Testing performed at Main Lab DEPARTMENT OF PATHOLOGY, [facility] [employer] [place], [place] [address] Suraj Stanton M.D. Director [facility] # [id number] 17 RUN DATE: 08/04/14 [facility] LAB LIVE PAGE 1 RUN TIME: 813 [facility] [employer] [address], [place] [address] Specimen Inquiry Name: MARTHA FUENTES : [address]: Shelly Barros MD Acct: [id number] Unit: [id number] AGE: 64 Location: [facility] Re08/02/14 SEX: F Status: REG REF SPEC: [id number] MATILDE: 08/02/[address]: Esme Rudd PA-C REQ: [id number] RECD: 08/02/14 STATUS: LUIS GAVIN DR: Shelly Neff MD _ SOURCE: THROAT SPDESC: ORDERED: Rapid Strep A, Throat Beta Str Procedure Result Verified Site Rapid Strep A Final 08/02/14- 1544 ML Organism 1 Negative Strep Group A Antigen testing by enzyme immunoassay. The biological scientist and regulatory agencies both recommend that a throat culture for beta strep be performed if a Rapid Group A Strep assay yields a negative result. Therefore a culture will be automatically performed on all negative samples. Throat Beta Strep Culture Final 08/04/14- 0814 ML Negative For Group A Beta Streptococcus * ML - [facility] ([facility]) . END OF REPORT * ML=Testing performed at Main Lab DEPARTMENT OF PATHOLOGY, [address] [place] [address] Suraj Stanton M.D. Director [facility] # [id number] RESULTS VERIFIED BY REPEAT ANALYSIS 19 Monospot added per pathologist's request. 20 N 21 RESULTS VERIFIED BY REPEAT ANALYSIS 04 Aug 2012 14:13 23 RESULT: Culture without mitogens 24 Method Analyzed Counted Karyotyped Band Level -------- ------- GTL 20 0 2 Total 20 0 2 400 25 No clonal abnormality was apparent. FISH studies for CLL are abnormal with a trisomy 12 clone (reported separately). FISH studies for B-cell lymphoma are pending (reported separately). 26 RESULT: Suraj Tariq PhD 27 10 Aug 2012 15:44 Test Performed by: [address] [address] Sheet Music Salesperson: Reyes Santos III, M.D. 28 A Dcrxez-Rckvjb-pvqokra slide prepared from the flow cytometry specimen is examined. The specimen contains small lymphocytes with round nuclear contours, coarsely clumped chromatin and inconspicuous nucleoli. 29 %Lymphs: 33% Results: Blasts: No increase B-cells: [...] and kappa and lambda surface light chains. 30 Bone marrow, flow cytometric immunophenotyping: Two light chain-restricted B-cell populations are present, consistent with involvement by the patient's previously identified (1) lambda positive CD5-negative B-cell population, and (2) kappa and CD5-positive B-cell population of uncertain significance, respectively. A complete B-cell panel was not performed as this process has been previously fully immunophenotyped (see [id number]; collected 07/27/2012). Comment: Correlation of the flow [...] developed and its performance characteristics determined by [facility]. It has not been cleared or approved by the U.S. Food and Drug Administration. Test Performed by: [facility] [place] [address] Sheet Music Salesperson: Reyes Santos III, M.D. 04 Aug 2012 14:13 32 RESULT: Culture without mitogens 33 Method Analyzed Counted Karyotyped Band Level -------- ------- GTL 20 0 2 Total 20 0 2 400 34 No clonal abnormality was apparent. FISH studies for CLL are abnormal with a trisomy 12 clone (reported separately). FISH studies for B-cell lymphoma are pending (reported separately). 35 RESULT: Suraj Tariq PhD 36 10 Aug 2012 15:44 Test Performed by: [place] [address] Sheet Music Salesperson: Reyes Santos III, M.D. 37 A Opoval-Znupvb-tuzessg slide prepared from the flow cytometry specimen is examined. The specimen contains small lymphocytes with round nuclear contours, coarsely clumped chromatin and inconspicuous nucleoli. 38 %Lymphs: 33% Results: Blasts: No increase B-cells: [...] and kappa and lambda surface light chains. 39 Bone marrow, flow cytometric immunophenotyping: Two light chain-restricted B-cell populations are present, consistent with involvement by the patient's previously identified (1) lambda positive CD5-negative B-cell population, and (2) kappa and CD5-positive B-cell population of uncertain significance, respectively. A complete B-cell panel was not performed as this process has been previously fully immunophenotyped (see [id number]; collected 07/27/2012). Comment: Correlation of the flow [...] developed and its performance characteristics determined by [facility]. It has not been cleared or approved by the U.S. Food and Drug Administration. Test Performed by: [facility] [place] [address] Sheet Music Salesperson: Reyes Santos III, M.D. 40 04 Aug 2012 13:29 41 RESULT: lymphoma, leukocytosis 42 Locus and probes [Strategy;#nuclei;Class] 6cen(D6Z1), 6q23.3(MYB) [COPY#;200;ASR] 11cen(D11Z1), 11q22.3(MAXX) [COPY#;200;ASR] 12cen(D12Z3), 12q15(MDM2) [COPY#;200;ASR] 13q14(K38Y722), 13q34(LAMP1) [COPY#;200;ASR] 11q13(CCND1-XT), 14q32(IGH-XT) [DFISH;500;ASR] 17p13.1(TP53), 17cen(D17Z1) [COPY#;200;ASR] Probe strategies include: DFISH=dual color, double fusion; COPY#=region gain and loss. 43 Abnormality Result (%) %Cutoff 6q-(D6Z1x2,MYBx1) Normal <4.0 11q- Normal <7.5 +12(D12Z3,MDM2)x3 Abnormal (28.5%) <2.5 13q-x1 Normal <7.0 13q-x2 Normal <1.5 t(11;14) CCND1/IGH fusion Normal <0.6 +14q32(IGHx3) Normal <3.0 17p-(TP53x1,F60Y2e9) Normal <9.5 NOMENCLATURE: nuc serena(D12Z3,MDM2)x3[57/200] 44 The result is abnormal and indicates trisomy 12 in 28.5% of nuclei. In patients with CLL, trisomy 12 at diagnosis is associated with an intermediate to unfavorable prognosis. Dokeer et al., N Engl J Med 343:3523-8908, 2000; Yany et al., Brit J Haematol 121:287-295, 2003; Miguelt et al., Leuk Lymph 47:1825-1022, 2006. Chromosome and other FISH studies pending and reported separately. Previous Studies DATE SPECIMEN RESULT 07/27/2012 Blood BCR and ABL1 within normal limits DISCLAIMER: Applicable to Analyte Specific Reagent (ASR) and Laboratory developed tests (LDT). This test was developed and its performance characteristics determined by [facility]. It has not been cleared or approved by the U.S. Food and Drug Administration. This FISH test does not rule out other chromosome abnormalities. 45 RESULT: Paulo Zepeda MD 46 07 Aug 2012 10:12 Test Performed by: [address] [address] Sheet Music Salesperson: Reyes Santos III, M.D. 47 10 Aug 2012 14:24 48 Locus and probes [Strategy;#nuclei;Class] 3q27(3'BCL6,5'BCL6) [BAP;200;ASR] 8q24(5'MYC,3'MYC) [BAP;200;ASR] 8cen(D8Z2), 8q24(MYC), 14q32(IGH) [DFISH;500;ASR] 8q24(MYC), 22q11.2(IGL) [DFISH;500;LDT] 11q21[BIRC3(API2)], 18q21(MALT1) [DFISH;500;ASR] 14q32(IGH), 18q21(BCL2) [DFISH;500;ASR] Probe strategies include: DFISH=dual color, double fusion; BAP=break-apart probe. 49 Abnormality Result(%) 95% normal cutoff 3q27(BCL6 sep) normal <3.0 8q24(MYC sep) normal <6.5 t(8;14)(MYC/IGH) normal <0.6 t(8;22)(MYC/IGL) normal <0.6 t(11;18)(BIRC3/MALT1) normal <0.6 +14q32(IGHx3) normal <2.4 t(14;18)(IGH/BCL2) normal <0.6 NOMENCLATURE: Interphase FISH is normal for all loci studied. 50 This result is within normal limits for the B-cell lymphoma panel. Chromosome studies are normal and other FISH studies are abnormal and reported separately. Previous Studies DATE SPECIMEN RESULT 07/27/2012 Blood BCR and ABL1 within normal limits DISCLAIMER: Applicable to Analyte Specific Reagent (ASR) and Laboratory Developed Tests (LDT). This test was developed and its performance characteristics determined by [facility]. It has not been cleared or approved by the U.S. Food and Drug Administration. This FISH test does not rule out other chromosome abnormalities. 51 RESULT: Suraj Tariq PhD 52 24 Aug 2012 10:05 Test Performed by: [address] [address] Sheet Music Salesperson: Reyes Santos III, M.D. 53 28 Jul 2012 13:08 54 Locus and probes [Strategy;#nuclei;Class] 9q34(ABL1), 22q11.2(BCR) [DFISH;500;ASR] Probe strategy: DFISH=dual color, double fusion. 55 Abnormality Result %Cutoff BCR/ABL1 fusion Normal <0.6 NOMENCLATURE nuc serena(ABL1,BCR)x2[500] Of 500 nuclei, 0% had fusion of BCR and ABL1. 56 The result is within normal limits for the BCR and ABL1 gene regions. DISCLAIMER: Analyte Specific Reagent (ASR). This test was developed and its performance characteristics determined by [facility]. It has not been cleared or approved by the U.S. Food and Drug Administration. This FISH test does not rule out other chromosome abnormalities. 57 RESULT: Suraj Tariq PhD 58 31 Jul 2012 09:25 Test Performed by: [address] [address] Sheet Music Salesperson: Reyes Santos III, M.D. 59 Because ethnic data is not always readily [...] 15-29 5 Kidney failure <15 (or dialysis) 60 A Ivirso-Joefqa-onbyfzm slide prepared from the flow cytometry specimen is examined. Small to medium sized lymphocytes with variable irregular nuclei and moderately abundant cytoplasm. 61 WBC: 10.2 x 10(9)/L %Lymphs (CBC/automated differential): [...] and kappa and lambda surface light chains. 62 Peripheral blood, flow cytometric immunophenotyping: Two distinct [...] developed and its performance characteristics determined by [facility]. It has not been cleared or approved by the U.S. Food and Drug Administration. Test Performed by: [place] [address] Sheet Music Salesperson: Reyes Santos III, M.D. 63 --- 07/27/12 1042 --- Granulocyte % previously reported as: 27.1 L % @ Edited by: Cuauhtemoc Raines @ Reason: Adding manual diff 64 --- 07/27/12 1042 --- Lymphocyte % previously reported as: 65.7 H % @ Edited by: Cuauhtemoc Raines @ Reason: Adding manual diff 65 --- 07/27/12 1043 --- Monocyte % previously reported as: 5.0 % @ Edited by: Cuauhtemoc Raines @ Reason: Adding manual diff 66 --- 07/27/12 1043 --- Eosinophil % previously reported as: 1.3 % @ Edited by: Cuauhtemoc Raines @ Reason: Adding manual diff 67 --- 07/27/12 1043 --- Basophil % previously reported as: 0.9 % @ Edited by: Cuauhtemoc Raines @ Reason: Adding manual diff 68 CBC and smear reviewed. Inverted PMN/lymph ratio noted. No blasts seen. REVIEWED BY SURAJ STANTON MD 69 @07/27/12 1045: Manual Diff added. RFLXG=DIFF. @07/27/12 1045: Path Review added. RFLXG=PATH. 70 Reference Range and Interpretation: TnI (ng/ml) Interpretation Less Than 0.06 ng/mL Not supportive of diagnosis of HI 0.06 - 0.50 ng/ml Indeterminate: suggest serial studies if clinically indicated. Greater than 0.5 ng/mL Consistent with diagnosis of HI 71 Monospot added per pathologist's request. Verbal to [id number] by [id number] at 0937 on 04/20/12. Results read back accurately. 72 CBC and smear reviewed. Inverted PMN/lymph ratio noted. No blasts seen. A lymphoproliferative disorder cannot be entirely ruled out. Additional studies may be considered. REVIEWED BY SURAJ STANTON MD 73 N 74 Reference Range and Interpretation: TnI (ng/ml) Interpretation Less Than 0.06 ng/mL Not supportive of diagnosis of HI 0.06 - 0.50 ng/ml Indeterminate: suggest serial studies if clinically indicated. Greater than 0.5 ng/mL Consistent with diagnosis of HI 75 Because ethnic data is not always readily [...] 15-29 5 Kidney failure <15 (or dialysis) 76 COLLECTED FROM 06/12/1030 THROUGH 06/13/10 0545. 77 Recent studies consider the lower limit of 32.0 ng/mL to be a threshold for optimal health. Dru MARI. J Nutr. 2005 May;135(2):317-22. 78 Reference Range: Females Premenopausal 112 - 738 Postmenopausal 142 - 1351 79 The following test(s) has been cancelled with a brief explanation for the cancellation: Urine N-telopeptide cancelled due to no specimen submitted for testing Client notified 80 RBC/PLTS NORMAL ON SMEAR 81 ---- RUN DATE: 12/27/08 [facility] NMI LIVE PAGE 1 RUN TIME: 1619 Specimen Inquiry RUN USER: INTERFACE -- Name: MARTHA FUENTES [facility]#: [id number] Status: REG REF Re12/26/08 Age/Sex: 58/F Unit#: [id number] Location: [facility]. : 48 -- Specimen: [id number] Spec Date: 12/26/[address]: Gerry santos MD Spec Type: SURGICAL P Received: 12/26/08-2819 Copies to: Wing fall MD SPECIMEN 1) RANDOM COLON BIOPSIES 2) BIOPSY COLON POLYP AT 20 CM. HISTORY POST-OP DIAGNOSIS: Two small polyps removed CLINICAL INFORMATION: Change in bowel habits, diarrhea GROSS DESCRIPTION 1) Specimen received in formalin labelled Martha TylerHollie Fuentes, Random Colon Biopsies and consists of multiple, boston, soft tissue fragments measuring 0.6 x 0.4 x 0.1 cm. Submitted entirely, one cassette. 2) Specimen received in formalin labelled Martha Tyler. Adrainaa, Biopsy Colon Polyps at 20 cm. and [...] 12/27/08 1616 -- -- DEPARTMENT OF PATHOLOGY, [address] [place] [address] [facility] Permit #[id number] Suraj Stanton M.D. Director Pepe Jesus M.D. Chief Dietitian Dir ken -- 82 FASTING 83 NF^NONFORMED^STFORM 84 Giardia and cryptosporidium antigen testing performed by immunoassay. If patient is immunocompromised or has traveled to or is from a developing country, a full ova and parasite exam with microscopic (OPMIC) is recommended. All samples will be held one month in case full ova and parasite testing is requested. Contact the Microbiology Department at [phone]. N^NEGATIVE BY IMMUNOASSAY^CRY N^NEGATIVE BY IMMUNOASSAY^TIM 85 NO GROWTH OF CAMPYLOBACTER AFTER 48 HOURS 86 NEGATIVE FOR THE ENTERIC PATHOGENS - SALMONELLA, SHIGELLA, AEROMONAS, PLESIOMONAS AND YERSINIA. VIBRIO AND E. COLI 0157 NOT ROUTINELY TESTED FOR IN A STOOL CULTURE. PLEASE SUBMIT SAMPLE WITH SPECIFIC REQUEST FOR DESIRED ORGANISM(S). 87 N^NEGATIVE BY IMMUNOCHROMATOGRAPHIC ASSAY^ST1 N^NEGATIVE BY IMMUNOCHROMATOGRAPHIC ASSAY^ST2 Procedures Date CPT Code Description Status Comment 07/02/2017 26660 Nebulizer Treatment Completed 06/28/2017 16456 Nebulizer Treatment Completed 06/27/2017 Mammogram Completed 06/27/2016 Mammogram Completed No findings of malignancy, normal suggested follow-up mammogram in one year. 01/30/2016 Bone Mineral Density Test Completed 02/03/2015 15898 Dxa Bone Density Study One Or Completed More Sites Axial Skeleton 03/29/2014 49692 Pulse Oximetry Completed 02/25/2014 Colonoscopy Completed 08/13/2013 44968 Dxa Bone Density Study One Or Completed More Sites Axial Skeleton 08/13/2013 11387 Dxa Bone Density Vertebarl FX Completed Assessment 07/30/2013 Mammogram Completed 04/21/2012 18758 Electrocardiogram Complete Completed 03/12/2012 51419 Pulse Oximetry Completed 05/20/2011 30852 Pulse Oximetry Completed 03/16/2011 97529 Pulse Oximetry Completed 03/20/2010 Mammogram Completed 02/04/2008 Mammogram Completed 06/13/2005 Mammogram Completed Encounters Type Date Location Provider CPT E/M Dx Office Visit 07/02/2017 1:40p Main Office Vicki Neff M.D. 68216 R06.2 Office Visit 06/28/2017 12:30p Main Office Vicki Neff M.D. 85543 J06.9 J01.90 Office Visit 05/09/2017 1:20p [facility] Vicki Neff M.D. 23878 K22.70 Office Visit 03/04/2017 3:40p Main Office Vicki Neff M.D. 44324 K21.9 Office Visit 10/08/2016 3:40p [facility] Office Vicki Neff M.D. 31320 E66.3 R73.01 E78.2 M25.562 Office Visit 07/18/2016 2:40p [facility] Vicki Neff M.D. 62440 E78.2 E66.3 R73.01 K21.9 E55.9 Office Visit 05/08/2016 10:00a Main Office Vicki Neff M.D. 11672 Z00.00 Z12.31 M85.89 E78.2 C85.90 E55.9 Office Visit 01/30/2016 10:40a [facility] Vicki Neff 63913 W57.xxxA Krysten Z23 S70.371A Office Visit 11/27/2015 10:50a Main Office Vicki Neff M.D. 95992 H25.13 Z01.818 Z12.31 Office Visit 07/05/2015 3:20p Main Office Vicki Neff M.D. 36632 J20.8 M25.562 M25.561 Office Visit 03/13/2015 6:30p Main Office Vicki Neff M.D. 07309 E55.9 R73.01 M81.0 Office Visit 01/12/2015 9:00a [facility] Vicki Neff M.D. 30730 Z00.01 M81.0 C85.90 R73.01 E55.9 E78.5 Z23 Office Visit 11/10/2014 10:30a Main Office Maria Del Carmen GarciaNAYE 70817 386.10 719.41 796.2 Office Visit 03/29/2014 1:45p [facility] Talya BairdStacy-C 00582 465.9 466.0 Office Visit 01/04/2014 9:40a [facility] Vicki Neff M.D. 04533 733.00 202.80 268.9 V04.81 Office Visit 07/07/2013 11:00a [facility] Wing Quijano M.D. 26550 V70.0 272.4 300.00 790.21 733.00 Office Visit 06/21/2013 11:00a Main Office Warren Deluna M.D. 20278 786.50 Office Visit 05/12/2013 9:20a Main Office Warren Deluna M.D. 18848 381.01 Office Visit 02/26/2013 2:00p [facility] Katalina WassermanStacy-C 04369 465.8 Office Visit 01/06/2013 1:00p [facility] Wing Quijano M.D. 90403 465.9 Office Visit 07/17/2012 10:20a [facility] Wing Quijano M.D. 70854 288.60 Office Visit 04/21/2012 2:50p [facility] Wing Quijano M.D. 83383 786.50 300.00 288.60 Office Visit 03/12/2012 8:50a Main Office Wing Quijano M.D. 53772 465.9 Office Visit 12/26/2011 11:15a [facility] Emilie Billie, [facility] 73941 386.30 V04.81 924.10 Office Visit 05/20/2011 11:00a Main Office Charanjit Denis M.D. 89959 461.8 462 Office Visit 03/16/2011 11:30a Main Office KatalinaJoceline Faulkner 04900 466.0 Office Visit 02/14/2011 3:20p [facility] Vicki Neff M.D. 55429 466.0 Office Visit 12/12/2010 2:15p [facility] Emilie Wise [facility] 66433 724.5 Office Visit 08/14/2010 11:20a [facility] Wing Quijano M.D. 31267 466.0 Office Visit 08/11/2010 9:45a Main Office Miguel Ascencio M.D. 17785 462 Office Visit 03/29/2010 9:40a Main Office Wing Quijano M.D. 07279 733.00 381.81 V06.5 v06.5 Office Visit 03/13/2010 5:40p Main Office Mark Gillespie M.D. 16392 V04.81 v04.81 733.00 461.0 Office Visit 11/08/2009 4:15p [facility] Emilie Wise [facility] 08321 729.5 448.1 Office Visit 09/28/2009 6:20p Main Office Wing Quijano M.D. 12766 465.9 Office Visit 11/08/2008 3:10p Main Office Charanjit Denis M.D. 45247 787.91 272.4 Office Visit 10/31/2008 2:20p [facility] Vangie Quintero M.D. 07572 787.91 272.2 Office Visit 05/31/2008 8:40a Main Office Mark Gillespie M.D. 87901 386.11 Office Visit 02/09/2008 3:30p Main Office Joceline Canada 17284 V72.31 272.2 Office Visit 01/26/2008 1:00p Main Office Wing Quijano M.D. 44203 V70.0 V77.91 V76.10 V76.51 V49.81 733.00 V04.81 Plan of Care 12/17/2017 - Vicki Neff M.D.Z01.818 Encounter for other preprocedural examinationComments:EKG is normal. If all labwork is normal, you are cleared for surgery. Stop your vitamins 10 days before surgery. Start a bowel regimen with the first pain pill including a stool softener AND MIRALAX.M25.562 Pain in left kneeM17.0 Bilateral primary osteoarthritis of kneeM25.462 Effusion, left kneeZ23 Encounter for immunizationComments:flu shot today.AllComments:~B_~U_ Medication Management~b_~u_ Patient Understands medications she's taking? Yes No Are there Barriers to Adherence? Yes No Has the patient been asked about herbal supplements and therapies, and OTC meds? Yes No
[2017-12-30] MEDS ORDERED: Lidocaine 2% PF * 5 ML VIAL ONE (13:02)
[2017-12-30] MEDS ORDERED: Dexamethasone IV* 4 MG/ML 1 ML (4 MG) ONE (13:02)
[2017-12-30] MEDS ORDERED: Ondansetron INJ* 2 MG/ML VIAL ONE (13:02)
[2017-12-30] MEDS ORDERED: fentaNYL* 50 MCG/ML 2 ML VIAL (100 MCG VIAL) ONE ×3 (13:02→18:16)
[2017-12-30] MEDS ORDERED: Propofol* 10 MG/ML 20 ML BTL IV PUSH ONE (13:02)
[2017-12-30] MEDS ORDERED: Midazolam* 1 MG/ML 10 ML VIAL (10 MG) ONE (13:02)
[2017-12-30] MEDS ORDERED: KETAMINE HCL* 50 MG/ML 10 ML VIAL ONE (13:03)
[2017-12-30] MEDS ORDERED: ROPIVACAINE 5 MG/ML 30 ML BTL (0.5%) ONE (14:39)
[2017-12-30] MEDS ORDERED: EPHEDrine (Pressors)* 50 MG/ML VIAL ONE (15:44)
[2017-12-30] MEDS ORDERED: HYDROmorphone INJ1* 1 MG/ML SYRINGE ONE ×3 (16:01→18:17)
[2017-12-30] MEDS ORDERED: Bupivacaine 0.5% SDV PF* 30ML VIAL ONE (16:25)
[2017-12-30] MEDS ORDERED: Naloxone* 0.4 MG/ML 1 ML VIAL IV PRN (17:12)
[2017-12-30] MEDS ORDERED: Ondansetron INJ* 2 MG/ML VIAL IV PRN (17:12)
[2017-12-30] MEDS ORDERED: fentaNYL* 50 MCG/ML 2 ML VIAL (100 MCG VIAL) IV PRN (17:12)
[2017-12-30] MEDS ORDERED: HYDROmorphone INJ1* 1 MG/ML SYRINGE IV PRN (17:12)
[2017-12-30] MEDS ORDERED: diPHENhydraMINE PO* 25 MG PO PRN (18:04)
[2017-12-30] MEDS ORDERED: Cyclobenzaprine TAB* 10 MG PO PRN (18:04)
[2017-12-30] MEDS ORDERED: Morphine INJ* 2 MG/ML 1 ML SYRINGE (TWO MG - NEW SYRINGE VERSION) IV PRN (18:04)
[2017-12-30] MEDS ORDERED: diPHENhydraMINE IV* 50 MG/ML 1 ml VIAL (BENADRYL) IV PRN (18:04)
[2017-12-30] MEDS ORDERED: oxyCODONE/Acetamin 5/325 MG* TAB PO PRN ×2 (18:04)
[2017-12-30] MEDS ORDERED: Magnesium Hydroxide LIQ* 30 ML UDC PO PRN (18:04)
[2017-12-30] MEDS ORDERED: CYANOCOBALAMIN PO PRN (18:09)
[2017-12-30] MEDS ORDERED: Calcium Carbonate CHEW TAB* 500 MG (TUMS) PO PRN (18:09)
[2017-12-30] MEDS ORDERED: Melatonin 3 MG TAB PO PRN (18:09)
[2017-12-30] MEDS ORDERED: VITAMIN B COMPLEX PO PRN (18:09)
[2017-12-30] MEDS ORDERED: Warfarin TAB(*) 6 MG PO ONE (19:00)
[2017-12-30] MEDS: oxyCODONE TAB* 5 MG TAB PO PRN (20:06)
[2017-12-30] MEDS: Acetaminophen TAB* 325 MG PO SCH (20:06)
[2017-12-30] MEDS: Docusate CAP* 100 MG PO SCH (20:14)
[2017-12-30] MEDS: Magnesium Hydroxide LIQ* 30 ML UDC PO SCH (23:10)
[2017-12-31] MEDS: ceFAZolin 1 GM in Dextrose (*) 1 GM/50 ML BAG IVPB SCH ×3 (00:08→15:58)
[2017-12-31] MEDS: oxyCODONE TAB* 5 MG TAB PO PRN ×5 (03:47→20:18)
[2017-12-31 05:10] LABS: Hematocrit 34 % (35-47); Hemoglobin 11.3 g/dl (12.0-16.0); Mean Platelet Volume 10.3 um3 (7.4-10.4); Platelet Count 176 10^3/ul (150-450)
[2017-12-31 05:13] LABS: INR 1.02 (0.77-1.02)
[2017-12-31 05:26] LABS: EGFR Non-African American 107.3 (>60)
[2017-12-31] MEDS: Acetaminophen TAB* 325 MG PO SCH ×3 (05:32→22:02)
--- NOTE | 2017-12-31 07:49 | RAD ---
INDICATION: Status post total left knee replacement surgery. COMPARISON: Comparison is made with a prior x-ray study of the left knee from November 12, 2017. TECHNIQUE: 2 views of the left knee were obtained. FINDINGS: The patient is status post total left knee replacement surgery. The bones and prostheses are in normal alignment. No fracture is seen. IMPRESSION: STATUS POST TOTAL LEFT KNEE REPLACEMENT SURGERY. R4
[2017-12-31] MEDS: Calcium Carbonate TAB* 1250 MG (CALCIUM 500 MG) PO SCH (07:54)
[2017-12-31] MEDS: Magnesium Hydroxide LIQ* 30 ML UDC PO SCH ×2 (07:54→20:18)
[2017-12-31] MEDS: Cholecalciferol TAB* 1000 UNITS PO SCH (07:55)
[2017-12-31] MEDS: Docusate CAP* 100 MG PO SCH ×2 (07:55→20:18)
[2017-12-31] MEDS: Multivitamins/Minerals TAB PO SCH (07:55)
[2017-12-31] MEDS ORDERED: Ondansetron INJ* 2 MG/ML VIAL ONE (09:07)
[2017-12-31] MEDS ORDERED: Ondansetron TAB* 4 MG PO PRN (09:08)
[2017-12-31] MEDS ORDERED: Ondansetron INJ* 2 MG/ML VIAL IV PRN (09:08)
[2017-12-31] MEDS ORDERED: Scopolamine 1.5 mg* PATCH ONE (09:51)
[2017-12-31] MEDS ORDERED: Scopolamine PATCH Remove* 1 NOTE MISC PATCH OFF SCH (10:00)
[2017-12-31] MEDS ORDERED: Scopolamine 1.5 mg* PATCH TRANSDERM SCH (10:00)
--- NOTE | 2017-12-31 11:12 | PN ---
Progress Note - Progress Note Date of Service: 12/31/17 SOAP: Subjective: []Patient seen and examined at bedside. She feels well aside from nausea and vomiting. Denies chills, shortness of breath, dizziness. Left knee is not painful at this time. Objective: []General: Well appearing, NAD LLE: Left knee dressing CDI without surrounding erythema. Thigh is soft. DF/PF intact. Sensation intact distally, DP2+. Calves supple and nontender without erythema, edema or palpable cords Assessment: []POD 1 SP left total knee arthroplasty Plan: []WBAT PT/OT Lovenox bridge to coumadin. Coumadin 8 mg today Scopolamine patch ordered Vital Signs Temp 98.3 F 12/31/17 07:30 Pulse 74 12/31/17 07:30 Resp 16 12/31/17 10:00 BP 122/63 12/31/17 07:30 Pulse Ox 100 12/31/17 10:00 Intake & Output 12/30/17 12/31/17 12/31/17 18:59 06:59 18:59 Intake Total 1950 2323 555 Output Total 575 2950 750 Balance 1375 -627 -195 Weight 167 lb Intake: IV Fluids 1950 1023 293 ABX - CEFAZOLIN 53 LR 1900 970 293 NS 50ML, Cefazolin 2G 50 IVPB 52 ABX - CEFAZOLIN 52 Oral 1300 210 Output: Urine 300 [place] 575 2800 Emesis 150 450 Laboratory Last Values Hgb 11.3 g/dl (12.0-16.0) L 12/31/17 04:47 Hct 34 % (35-47) L 12/31/17 04:47 Plt Count 176 10^3/ul (150-450) 12/31/17 04:47 MPV 10.3 um3 (7.4-10.4) 12/31/17 04:47 INR (Anticoag Therapy) 1.02 (0.77-1.02) 12/31/17 04:47 Sodium 137 mmol/L (135-145) 12/31/17 04:47 Potassium 4.2 mmol/L (3.5-5.0) 12/31/17 04:47 Chloride 103 mmol/L (101-111) 12/31/17 04:47 Carbon Dioxide 26 mmol/L (22-32) 12/31/17 04:47 Anion Gap 8 mmol/L (2-11) 12/31/17 04:47 BUN 8 mg/dL (6-24) 12/31/17 04:47 Creatinine 0.56 mg/dL (0.51-0.95) 12/31/17 04:47 Est GFR ( Amer) 129.9 (>60) 12/31/17 04:47 Est GFR (Non-Af Amer) 107.3 (>60) 12/31/17 04:47 BUN/Creatinine Ratio 14.3 (8-20) 12/31/17 04:47 Glucose 149 mg/dL (70-100) H 12/31/17 04:47 Calcium 9.2 mg/dL (8.6-10.3) 12/31/17 04:47
[2017-12-31] MEDS ORDERED: Enoxaparin(*) 40 MG/0.4 ML SYR SUBCUT SCH (12:00)
[2017-12-31] MEDS ORDERED: Warfarin TAB(*) 4 MG PO ONE (17:00)
[2017-12-31] MEDS ORDERED: Omeprazole CAP* 20 MG PO SCH (18:00)
[2018-01-01] MEDS: oxyCODONE TAB* 5 MG TAB PO PRN ×2 (00:20→05:52)
[2018-01-01 05:26] LABS: Hematocrit 33 % (35-47); Hemoglobin 10.9 g/dl (12.0-16.0); Mean Platelet Volume 10.2 um3 (7.4-10.4); Platelet Count 165 10^3/ul (150-450)
[2018-01-01 05:28] LABS: INR 1.44 (0.77-1.02)
[2018-01-01] MEDS: Acetaminophen TAB* 325 MG PO SCH (05:51)
[2018-01-01] MEDS: Magnesium Hydroxide LIQ* 30 ML UDC PO SCH (08:39)
[2018-01-01] MEDS: Multivitamins/Minerals TAB PO SCH (08:39)
[2018-01-01] MEDS: Calcium Carbonate TAB* 1250 MG (CALCIUM 500 MG) PO SCH (08:39)
[2018-01-01] MEDS: Cholecalciferol TAB* 1000 UNITS PO SCH (08:39)
[2018-01-01] MEDS: Docusate CAP* 100 MG PO SCH (08:39)
--- NOTE | 2018-01-01 09:50 | OP ---
DATE OF OPERATION: 12/30/17 - ROOM #349 DATE OF : 46 SURGEON: Gracy Espitia MD CUTTER OPERATOR BRICK: MARY Delgado. Ms. Pendleton did help throughout the procedure with preparation of the leg, wound retraction, manipulation of the knee, and wound closure. ANESTHESIOLOGIST: Dr. Lr. ANESTHESIA: Spinal. PRE-OP DIAGNOSIS: Severe endstage degenerative osteoarthritis of the left knee joint. POST-OP DIAGNOSIS: Severe endstage degenerative osteoarthritis of the left knee joint. OPERATIVE PROCEDURE: Left total knee arthroplasty. TOURNIQUET TIME: 48 minutes. COMPLICATIONS: None. ESTIMATED BLOOD LOSS: 200 cc. SPECIMEN: Bone and cartilage from the left knee joint sent to pathology. HARDWARE USED: This is a cemented [employer] total knee arthroplasty hardware. Two packages of Simplex bone cement. For the femur, a left 4 narrow posterior stabilized Legion Oxinium femoral component. For the tibia, a left 3 Eva II tibial baseplate. For the insert, a 9-mm posterior stabilized articular insert size 3-4 and for the patella, a 32-mm 3-peg all poly patella with 7.5 thickness. BRIEF HISTORY/INDICATIONS: Ms. Fuentes is a 67-year-old female with severe left knee pain over the last few years. She failed conservative treatment with antiinflammatories, pain medications, intraarticular injection, and physical therapy. Due to continued pain and decreased quality of life, the patient elected to undergo left total knee arthroplasty. Radiographs showed bone-on- bone arthritis. Informed consent was obtained from the patient. She understood the risks of surgery included but were not limited to bleeding, infection, damage to nearby structures, continued pain, need for further surgery , intraoperative fracture, nerve palsy, hardware failure or loosening, stroke, heart attack, blood clot, and . She wished to proceed. INTRAOPERATIVE FINDINGS: Intraoperatively, the patient was noted to have severe arthritis with complete loss of cartilage in the medial and patellofemoral compartments. DESCRIPTION OF PROCEDURE: Ms. Fuentes was identified in the preanesthesia unit. Her left lower extremity was marked as the correct operative side. Informed consent was signed and placed in the chart. The patient was taken to the operating room and placed under spinal anesthesia. A Cortez catheter was placed. The patient's left thigh had a tourniquet placed. Left lower extremity was prepped and draped in the usual sterile fashion. Preop time-out was made to correctly identify the patient's side and site. Appropriate perioperative antibiotics were given within 1 hour of incision. Tourniquet was inflated. A 10-cm midline incision was made with a 10 blade. Next, a new 10 blade was used to make a standard medial parapatellar arthrotomy. The patella was subluxed laterally. Electrocautery was used to elevate soft tissue off the superomedial tibia. This was performed to the mid sagittal plane. The knee was flexed up. Anterior horn of the lateral meniscus and ACL were sharply released. A drill was used to enter the distal femur. Intramedullary distal femoral cutting guide was pinned on the distal femur. Oscillating saw was used to make the distal femoral cut. Next, the external rotation guide was pinned on the distal femur. The distal femur was sized to a size 4. A size 4 multi-cutting jig was pinned on the distal femur. Oscillating saw was used to make the appropriate 4 chamfer cuts. PCL was completely released. The tibia was subluxed anteriorly. Extramedullary tibial cutting guide was pinned on the proximal tibia. Oscillating saw was used to make the proximal tibial cut perpendicular to the mechanical axis of the tibia. The bone was carefully removed. The knee was brought out into full extension. A spacer block had good fit with the knee in full extension. Medial and lateral ligaments were well balanced. Flexion and extension gaps were well balanced. The knee was flexed up. Lamina instrument inspector was placed both medially and laterally. Any remaining meniscus was carefully removed using electrocautery. Curved osteotome was used to remove any posterior osteophytes. Tibial tray and drop marian was placed and once again confirmed a satisfactory tibial cut. A size 4 left narrow femoral trial was impacted onto the distal femur and had excellent fit. The box for the posterior stabilized implant was prepared using a reamer and box cut osteotome. Size 3 tibial tray trial with a 9-mm insert trial was placed and the knee was taken through a range of motion. The knee had full extension to 130 degrees of flexion. There was satisfactory patellofemoral tracking. The patella was everted. A 7 mm of patellar bone and cartilage were carefully removed using an oscillating saw. The patella was sized to a size 32. Three peg holes were drilled through the size 32 guide. A 32 trial patella with 7.5 thickness was placed and the knee was taken through a range of motion. There was satisfactory patellofemoral tracking. All trials were carefully removed. Tibia was subluxed anteriorly and sized to a size 3. Proximal tibia was prepared using a size 3 keel punch. All bony cut surfaces were copiously irrigated with sterile saline. Final implants were cemented into place starting with the tibia, followed by the femur , and last the patella. A 9 mm insert trial was placed and the knee was brought out into full extension. Tourniquet was turned down and electrocautery was used to obtain meticulous hemostasis. The knee was copiously irrigated with sterile saline. Once the cement had fully cured, the insert trial was removed. Any excess cement was removed from around the capsule and hardware. Final insert chosen was a 9 mm posterior stabilized articular insert size 3-4. This was locked into position on the tibial tray. Stability of the insert was checked and rechecked and noted to be stable. The extensor mechanism was closed using interrupted #1 Vicryls. The rest of the incision was closed in a layered fashion using 0 and 2-0 Vicryls. Skin was closed using running 3-0 nylon suture. Sterile Xeroform, 4x4s, and Webril were used to cover the incision. Pavel wrap and cold pack were placed over this. The patient's anesthesia was reversed without difficulty. She was taken to the PACU in stable condition. Intended weight-bearing will be weightbearing as tolerated. Intended DVT prophylaxis will be Coumadin with a Lovenox bridge. [id number]/[facility] #: [id number] JIGNESH
[2018-01-01 16:03] VITALS: BP 171/69
== END 2018-01-01 15:10 | disposition home health service (06) | DRG 470 ==
LOC: AA 12:17 → SSU 19:16
PROVIDERS: ADMIT Orthopaedic Surgery Adult Reconstructive Orthopaedic Surgery; ATTEND Orthopaedic Surgery Adult Reconstructive Orthopaedic Surgery
PROC: 0SRD069 Replacement of Left Knee Joint with Oxidized Zirconium on Polyethylene Synthetic Substitute, Cemented, Open Approach (ICD-10-PCS; principal; 2017-12-30 15:00)
DX: M17.12 Unilateral primary osteoarthritis, left knee (principal); K21.9 Gastro-esophageal reflux disease without esophagitis; K22.70 Barrett's esophagus without dysplasia; M25.462 Effusion, left knee; M81.0 Age-related osteoporosis without current pathological fracture; G47.00 Insomnia, unspecified; E66.3 Overweight; E78.00 Pure hypercholesterolemia, unspecified; G47.33 Obstructive sleep apnea (adult) (pediatric); F41.9 Anxiety disorder, unspecified; H40.9 Unspecified glaucoma; E55.9 Vitamin D deficiency, unspecified; M25.762 Osteophyte, left knee; K44.9 Diaphragmatic hernia without obstruction or gangrene; Z90.89 Acquired absence of other organs; Z90.710 Acquired absence of both cervix and uterus; Z91.048 Other nonmedicinal substance allergy status; Z87.891 Personal history of nicotine dependence; Z72.89 Other problems related to lifestyle; Z98.49 Cataract extraction status, unspecified eye; Z85.72 Personal history of non-Hodgkin lymphomas; Z85.828 Personal history of other malignant neoplasm of skin; Z82.49 Family history of ischemic heart disease and other diseases of the circulatory system; Z83.6 Family history of other diseases of the respiratory system; Z80.3 Family history of malignant neoplasm of breast; Z68.28 Body mass index [BMI] 28.0-28.9, adult; R11.2 Nausea with vomiting, unspecified
CPT/HCPCS: 36415; 80048; 85014; 85018; 85049; 85610; A9270-GY; G8978-GP-CJ; G8979-GP-CI; G8987-GO-CJ; G8988-GO-CI; J0690; J1100; J1170; J1650; J2250; J2405; J2704; J2795; J3010

== ENCOUNTER 2020-10-17 05:57 | Observation (INO) ==
[2020-10-17] MEDS ORDERED: Lactated Ringers 1000 ml BAG 1,000 ML IV SCH (06:00)
[2020-10-17] MEDS ORDERED: Buffered Lidocaine 1% SYRIN 1 ml INTRADERM ONE ×2 (06:00→06:49)
[2020-10-17] MEDS ORDERED: ceFAZolin 2 GM PREMIX 2 GM/50 ML BAG ONE (06:48)
[2020-10-17] MEDS ORDERED: Heparin 5000 UNITS/ML 1 mL VIAL ONE (06:48)
[2020-10-17] MEDS ORDERED: Propofol 10 MG/ML 20 ML BTL ONE (06:55)
[2020-10-17] MEDS ORDERED: Rocuronium 50 mg VIAL 10 mg/ml 5 ml VIAL (50 mg) ONE (06:55)
[2020-10-17] MEDS ORDERED: fentaNYL 250 mcg/5 ml 50 MCG/ML 5 ml VIAL (250 MCG) ONE ×2 (06:55→08:15)
[2020-10-17] MEDS ORDERED: Lidocaine 2% PF 5 ML VIAL ONE (06:55)
[2020-10-17] MEDS ORDERED: Midazolam 2 mg/2 ml VIAL 1 mg/ml 2 ml VIAL (2 mg) ONE (06:55)
[2020-10-17] MEDS ORDERED: Sevoflurane BOTTLE ONE (06:56)
[2020-10-17] MEDS ORDERED: Bupivacaine 0.25% EPI 200,000 30 ML SDV ONE (07:13)
[2020-10-17] MEDS ORDERED: Ondansetron 4 mg VIAL 2 MG/ML 2 ml VIAL ONE ×2 (08:01→11:01)
[2020-10-17] MEDS ORDERED: Dexamethasone IV 4 MG/ML VIAL 1 ml VIAL ONE (08:01)
[2020-10-17] MEDS ORDERED: Labetalol IV 5 MG/ML 20 ml VIAL ONE (09:34)
[2020-10-17] MEDS ORDERED: Phenylephrine 40 mcg/mL 10mL (400mcg) SYRINGE ONE (09:42)
[2020-10-17] MEDS ORDERED: EPHEDrine (Pressors) 50 MG/ML VIAL ONE (09:44)
[2020-10-17] MEDS ORDERED: Ondansetron 4 mg VIAL 2 MG/ML 2 ml VIAL IV PRN ×2 (10:55→12:58)
[2020-10-17] MEDS ORDERED: Morphine 4 MG/ML VIAL (1 ml) IV PRN (10:55)
[2020-10-17] MEDS ORDERED: DiMENhydriNATE IV 50 mg/ml 1 ml VIAL IV PUSH PRN (10:55)
[2020-10-17] MEDS ORDERED: fentaNYL 100 mcg/2 ml 50 MCG/ML VIAL ONE (11:01)
[2020-10-17] MEDS: fentaNYL 100 mcg/2 ml 50 MCG/ML VIAL IV PRN ×2 (11:03→11:15)
[2020-10-17] MEDS ORDERED: DiMENhydriNATE IV 50 mg/ml 1 ml VIAL ONE (11:41)
[2020-10-17] MEDS ORDERED: HYDROmorphone 1 MG/1 ML SYRINGE IV SLOW PU PRN (12:58)
[2020-10-17] MEDS ORDERED: HYDROcodone/ACET. 7.5/325 LIQ 15 ML UDC PO PRN (13:08)
[2020-10-17] MEDS: Lactated Ringers 1000 ml BAG 1,000 ML IV SCH (13:35)
[2020-10-17] MEDS: Heparin 5000 UNITS/ML 1 mL VIAL SUBCUT SCH ×2 (14:45→21:46)
[2020-10-17] MEDS ORDERED: Metoclopramide 5 MG/ML VIAL (10 mg) IV PRN (19:48)
[2020-10-17] MEDS: DiMENhydriNATE IV 50 mg/ml 1 ml VIAL IV PUSH PRN (19:58)
[2020-10-18] MEDS: DiMENhydriNATE IV 50 mg/ml 1 ml VIAL IV PUSH PRN (02:40)
[2020-10-18] MEDS: Heparin 5000 UNITS/ML 1 mL VIAL SUBCUT SCH (05:42)
[2020-10-18] MEDS ORDERED: Magnesium Hydroxide LIQ 30 ML UDC PO ONE (08:17)
[2020-10-18] MEDS: Lactated Ringers 1000 ml BAG 1,000 ML IV SCH (08:52)
[2020-10-18] MEDS ORDERED: oxyCODONE/Acetamin 5/325 mg TAB PO PRN (10:27)
[2020-10-18 11:03] VITALS: BP 103/81
== END 2020-10-18 13:00 | disposition home or self-care (01) ==
LOC: OR 05:57 → SSU 05:57
PROVIDERS: ADMIT Surgery; ATTEND Surgery